=== PATIENT | female | born 1955 | race Caucasian/White ===

== ENCOUNTER → 2017-08-19 10:46 | Outpatient (CLI) | payer OTHER, SELFPAY ==
[2017-08-19 13:22] LABS: Hemoglobin A1c 7.8 % (4.2-6.3)
[2017-08-19 13:25] LABS: ALB/GLOB Ratio 1.2 RATIO (0.9-2.4); AST(SGOT) 24 U/L (15-37); Alanine Aminotransfer ALT/SGPT 35 U/L (13-56); Albumin, Serum 3.8 g/dL (3.2-5.0); Alkaline Phosphatase 65 U/L (45-117); Anion Gap 7 (5-15); BUN 23 mg/dL (7-18); Calcium,Total 9.3 mg/dL (8.5-10.1); Chloride 106 mmol/L (98-107); Creatinine, Serum 0.96 mg/dL (0.55-1.02); EST Glomerular Filtration Rate 63 mL/min (>60); Est Glom Filt Rate - Afr Amer 76 mL/min (>60); Globulin 3.2 g/dL (2.2-4.2); Glucose 108 mg/dL (74-106); Sodium Level 141 mmol/L (136-145)
== END ==
PROVIDERS: Family Provider Family Medicine; PCP Family Medicine; Visit Provider Family Medicine
DX: E11.9 Type 2 diabetes mellitus without complications (principal)
CPT/HCPCS: 36415; 80053; 83036

== ENCOUNTER → 2017-09-05 09:40 | Outpatient (CLI) | payer OTHER, SELFPAY ==
--- NOTE | 2017-09-06 05:55 | LEAS ---
Arterial Study - Arterial Study Arterial Study: Bilateral lower extremity noninvasive arterial exam at rest Patient with cold feet bilateral extremity edema and left greater than right pain Right lower extremity The right PT and DP ankle-brachial indices at rest are 1.04 and 1.08 with a digital index of 0.92. The right posterior tibial and dorsalis pedis waveforms are triphasic. Volume pulse recordings demonstrate normal amplification the calf and the ankle waveforms are well maintained while the digital waveforms are marked mildly depressed Left lower extremity Left PT index cannot be calculated due to and are associated elevated systolic pressure greater than 254. The left DP index is 1.06. Left digital index is 1.01. The left posterior tibial and dorsalis pedis waveforms are triphasic. Volume pulse recordings demonstrate normal amplification the calf and the ankle and digital waveforms are well maintained. Findings are notable for baseline blood pressure of 233/120 Impression: Resting indices and Doppler waveforms are normal bilaterally. Minimally diminished digital waveforms on the right possibly consistent with mild amount of distal small vessel disease. The current findings do not suggest clinically significant large vessel inflow disease. Richy Merchant M.D., F.A.C.S.
== END ==
PROVIDERS: Family Provider Family Medicine; PCP Family Medicine; Visit Provider Family Medicine
DX: E11.9 Type 2 diabetes mellitus without complications (principal); R60.0 Localized edema
CPT/HCPCS: 93923

== ENCOUNTER → 2017-09-26 13:52 | Outpatient (CLI) | payer OTHER, SELFPAY ==
--- NOTE | 2017-09-26 13:53 | ECHOD_ITS ---
Reason For Study: MURMUR Procedure This was a 2D Doppler, Color Flow transthoracic echocardiogram. Exam performed in department. Left Ventricle Normal LV size. Mild concentric left ventricular hypertrophy. Left ventricular systolic function is normal. The estimated ejection fraction is 60 %. Transmitral diastolic flow velocities suggest mild (stage 1) diastolic dysfunction (reversed pattern). No regional wall motion abnormalities noted. Right Ventricle Normal RV size. Normal systolic function. Atria Normal left atrium. Normal right atrium. Mitral Valve Normal mitral valve. Tricuspid Valve Normal tricuspid valve. Mild tricuspid valve insufficiency. Aortic Valve Trisinus/trileaflet aortic valve. Pulmonic Valve Normal pulmonic valve. Great Vessels Normal aortic root. The pulmonary artery is normal size. Normal inferior vena cava. Pericardium/Pleural Small pericardial effusion. There are no echocardiographic indications of cardiac tamponade. MMode/2D Measurements & Calculations LVIDd: 4.8 cm IVSd: 1.3 cm Ao root diam: 2.9 cm LVIDs: 3.7 cm LVPWd: 1.2 cm RVDd: 2.1 cm FS: 24.2 % LAV(MOD-bp): 45.0 ml EDV(MOD-sp4): 88.8 ml SV(MOD-sp4): 47.0 ml LAV(MOD-bp) Indexed: 20.7 ml/m2 ESV(MOD-sp4): 41.7 ml LAV(MOD-sp2): 34.8 ml EF(MOD-sp4): 53.0 % LAV(MOD-sp4): 53.6 ml LA A4 area: 18.8 cm2 RA A4 area: 11.4 cm2 Time Measurements MV dec time: 0.21 sec Doppler Measurements & Calculations MV E max mark: 77.1 cm/sec Lat Peak E' Mark: 6.2 cm/sec Med Peak E' Mark: 5.8 cm/sec MV A max mark: 115.3 cm/sec E/E' lat: 12.3 E/E' med: 13.2 MV E/A: 0.67 Ao V2 max: 155.5 cm/sec LV V1 max: 107.1 cm/sec PA V2 max: 111.3 cm/sec Ao max P.7 mmHg LV V1 max P.6 mmHg Interpretation Summary Normal LV size. Mild concentric left ventricular hypertrophy. The estimated ejection fraction is 60 %. Left ventricular systolic function is normal. Transmitral diastolic flow velocities suggest mild (stage 1) diastolic dysfunction (reversed pattern). Ordering Physician: Ho Landeros Referring Physician: Ho Landeros Performed By: Yanet Gomez RDCS
== END ==
PROVIDERS: Family Provider Family Medicine; PCP Family Medicine; Visit Provider Family Medicine
DX: I34.1 Nonrheumatic mitral (valve) prolapse (principal)
CPT/HCPCS: 93306

== ENCOUNTER → 2017-10-27 11:04 | Outpatient (CLI) | payer OTHER, SELFPAY ==
[2017-10-27 12:28] LABS: Anion Gap 11 (5-15); BUN 42 mg/dL (7-18); BUN/Creat Ratio 25.6 RATIO (10-20); Calcium,Total 9.4 mg/dL (8.5-10.1); Chloride 104 mmol/L (98-107); Creatinine, Serum 1.64 mg/dL (0.55-1.02); EST Glomerular Filtration Rate 34 mL/min (>60); Est Glom Filt Rate - Afr Amer 41 mL/min (>60); Glucose 171 mg/dL (74-106); Potassium 3.8 mmol/L (3.5-5.1); Sodium Level 142 mmol/L (136-145)
== END ==
PROVIDERS: Family Provider Family Medicine; PCP Family Medicine; Visit Provider Nurse Practitioner Family
DX: I10 Essential (primary) hypertension (principal)
CPT/HCPCS: 36415; 80048

== ENCOUNTER 2017-10-29 06:46 | Inpatient (IN) | payer OTHER, SELFPAY ==
[2017-10-29] VITALS (15 sets, daily range): BP systolic 181–260; BP diastolic 80–139; PULSE 75–112; RESP 14–24; TEMP 36.8–37.6; O2SAT 93–98; BMI 40.3; BMI 39.8
--- NOTE | 2017-10-29 07:04 | RAD_ITS ---
STUDY: X-RAY - LUMBAR SPINE REASON FOR EXAM: Female, 62 years old. Back pain since 2 weeks. TECHNIQUE: 3 view(s) of the lumbar spine were obtained. COMPARISON: None FINDINGS: Normal lumbar lordosis. There is a moderate dextroscoliosis of the lumbar spine. There is a 1.3 cm anterolisthesis of L4 on L5 vertebra. There is diffuse demineralization with multi-level endplate thoracolumbar spondylosis. There is multi-level degenerative disc disease with significant disc space narrowing of the visualized lower thoracic/upper lumbar and L4-L5 and L5-S1. There is hypertrophic lower lumbosacral facet arthrosis with neural foraminal stenosis at L4-L5 and L5-S1 levels. There is atherosclerotic calcification of the abdominal aorta without a demonstrated aneurysm. RAD/Lumbar Spine 2 or 3 Views IMPRESSION: 1. Multilevel moderately advanced degenerative changes of the thoracolumbar spine, as detailed above. 2. Degenerative facet arthritis with L4 vertebral grade 1 spondylolisthesis. Electronically Signed: Camille Davis MD at 8:54 EDT Tel , Service support ,
[2017-10-29] MEDS: HYDROmorphone 1 MG/ML Syringe IV ×3 (07:22→10:32)
[2017-10-29] MEDS: Ondansetron 4 MG/2 ML Vial IV (07:22)
--- NOTE | 2017-10-29 08:03 | EKG12_ITS ---
Test Reason : CP Blood Pressure : / mmHG Vent. Rate : 089 BPM Atrial Rate : 089 BPM P-R Int : 176 ms QRS Dur : 094 ms QT Int : 374 ms P-R-T Axes : 039 -20 033 degrees QTc Int : 455 ms Normal sinus rhythm Normal ECG Confirmed by DESTINY PACE MD ([id number]), newspaper photo editor LEONARDO TUCKER ([id number]) on 11/02/2017 3:43:27 PM Referred By: Lars Swenson Confirmed By:DESTINY PACE MD
--- NOTE | 2017-10-29 08:04 | CT_ITS ---
STUDY: CTA CHEST REASON FOR EXAM: Female, 62 years old. Back pain, rule out aortic tissue. RADIATION DOSAGE (If Supplied By Facility): CTDIvol = ( 16.06 ) mGy, DLP = ( 1331.45 ) mGycm TECHNIQUE: The examination was performed with the intravenous administration of 100 ml of Isovue 300 contrast material. Post-processing of the angiographic images was performed, with multiplanar reformation and 3D reconstruction. Individualized dose optimization techniques were used for this CT. COMPARISON: None. FINDINGS: Normal enhancement of the main pulmonary artery and right and left pulmonary arteries. Normal enhancement of the bilateral peripheral pulmonary arteries. There is no demonstrated pulmonary embolism. Normal thoracic aorta and visualized great vessels. There is no demonstrated aortic dissection. There is borderline cardiac cardiomegaly. There is a trace/small pericardial effusion. There is demonstrated small mediastinal and left hilar lymphadenopathy with a 2 cm low-density right paratracheal and multiple smaller lymph nodes. Normal visualized trachea and bronchi. The lungs are under expanded. Posteriorly there is subpleural mild dependent atelectasis. Biapical mild pleural thickening. Lung rob are unremarkable for acute infiltrative or congestive changes. Posteriorly is mild pleural thickening. There is no pleural effusion or pneumothorax. There is non-specific bilateral low-density lymphadenopathy. There are degenerative changes of thoracic spine. Diffuse fatty hepatic infiltration. Subdiaphragmatic small calcified hepatic granuloma. IMPRESSION: 1. Normal CTA chest examination, without a demonstrated pulmonary embolism or arterial dissection. 2. Nonspecific small mediastinal and left hilar lymphadenopathy. Consider follow-up with short-term CT exam in 6 months. 3. Borderline cardiomegaly. Electronically Signed: Camille Davis MD at 9:13 EDT Tel , Service support , STUDY: CTA OF THE ABDOMINAL AORTA REASON FOR EXAM: Female, 62 years old. Back pain, right leg pain, rule out aortic issues. RADIATION DOSAGE (If Supplied By Facility): CTDIvol = ( 16.06 ) mGy, DLP = ( 1331.45 ) mGycm TECHNIQUE: Axial CT angiography multi-detector data acquisition was obtained following intravenous administration of 100 ml of Isovue 300 contrast. Axial images and MIP images were reconstructed from the axial data set. Post-processing of the angiographic images was performed, with multiplanar reformation and 3D reconstruction. Individualized dose optimization techniques were used for this CT. TECHNICAL QUALITY: Good COMPARISON: None. Descriptors of Narrowing: None (0%) Mild (< 50%) Moderate (50-70%) Severe (70-90%) Subtotal/Total Occlusion (90-100%) Non-Evaluable (technically non-diagnostic FINDINGS: Abdominal aorta: No demonstrated narrowing. There is mild atherosclerotic calcification/plaque formation of the infrarenal aorta. Celiac and superior mesenteric arteries: No demonstrated narrowing. Inferior mesenteric artery: No demonstrated narrowing. Right renal artery(arteries): No demonstrated narrowing. Left renal artery(arteries): No demonstrated narrowing. Right common iliac artery: No demonstrated narrowing. Right external iliac artery: No demonstrated narrowing. Right internal iliac artery: No demonstrated narrowing. Left common iliac artery: No demonstrated narrowing. Left external iliac artery: No demonstrated narrowing. Left internal iliac artery: No demonstrated narrowing. There is diffuse fatty hepatic infiltration. A 5 mm subdiaphragmatic calcification of the left hepatic lobe. There is a 2.7 x 2.3 cm left adrenal low-density mass(39 Hounsfield units) demonstrated, probably an adenoma. Bilaterally mildly smaller kidneys. There is significant sigmoid diverticulosis. No evidence of acute diverticulitis. Multiple focal calcifications of the possible degenerated fibroid uterus. Mild anterolisthesis of L4 vertebra. Moderately advanced degenerative disc/endplate disease changes are seen at T11-T12, L4-L5 and L5-S1 levels. Significant nitrogen vacuum gas at L4-L5. CT/CTA Abdomen W/WO Contrast IMPRESSION: 1. No abdominal aortic aneurysm or dissection. Infrarenal mild atherosclerotic calcification. 2. Hepatic steatosis. 3. A 2.7 cm left adrenal mass. Correlation with in phase/out of phase MRI exam is recommended. 4. Sigmoid diverticulosis. 5. Degenerated/calcified fibroid uterus. 6. Moderately advanced degenerative spondylitic changes are seen at T11-T12, L4-L5 and L5-S1. 7. Facet arthritis with grade 1 L4 spondylolisthesis . Electronically Signed: Camille Davis MD at 9:28 EDT Tel , Service support ,
[2017-10-29 08:17] LABS: Absolute Lymphocyte Count 1.52 X10^3/ul (0.83-4.51); Absolute Neutrophil Count 3.3 X10^3/uL (2.0-7.7); Basophil# 0.02 X10^3/uL; Basophil% 0.4 % (0-1); Eosinophil# 0.06 X10^3/uL; Eosinophils% 1.1 % (0-5); Hematocrit 43.4 % (37-47); Lymphocyte # 1.52 X10^3/ul (4.0); Lymphocyte % 28.7 % (19-41); Mean Corp Hgb Conc 32.3 g/gl (32-36); Mean Corpuscular Hgb 29.5 pg (27.0-32.0); Mean Corpuscular Volume 91.4 fL (81-99); Monocyte# 0.41 X10^3/uL; Monocyte% 7.7 % (0-10); Neutrophil # 3.28 X10^3/uL (2.7-7.7); Neutrophil % 61.9 % (47-70); Platelet Count 217 K/mm3 (150-450); RBC Distribution Width CV 13.3 % (11.6-14.6); RBC Distribution Width SD 44.3 fl (35.1-43.9); Red Blood Count 4.75 M/mm3 (4.2-5.4); White Blood Count 5.3 K/mm3 (4.4-11.0)
[2017-10-29 08:18] LABS: POSITIVE COUNT NO; POSITIVE DIFFERENTIAL NO; POSITIVE MORPHOLOGY NO
[2017-10-29 08:33] LABS: Anion Gap 7 (5-15); BUN 23 mg/dL (7-18); BUN/Creat Ratio 22.5 RATIO (10-20); Calcium,Total 9.6 mg/dL (8.5-10.1); Chloride 106 mmol/L (98-107); Creatinine, Serum 1.02 mg/dL (0.55-1.02); EST Glomerular Filtration Rate 58 mL/min (>60); Est Glom Filt Rate - Afr Amer 71 mL/min (>60); Estimated Creatinine Clearance 51.46 ml/min; Glucose 252 mg/dL (74-106); Potassium 3.9 mmol/L (3.5-5.1); Sodium Level 140 mmol/L (136-145)
[2017-10-29] MEDS: Labetalol 100 MG/20 ML Vial 10 MG IV (08:59)
--- NOTE | 2017-10-29 09:02 | ED.RN ---
AFTER RECEIVING DILAUDID, PT PULSE OX DOWN TO 88%. PT PLACED ON 2L O2 VIA NC
--- NOTE | 2017-10-29 10:21 | ED.VISSUMM ---
- ER Visit Summary Date of Service: 10/29/17 Chief Complaint: Right leg and back pain History of Present Illness: The patient is a 62 F with right leg and back pain. Symptoms have been increasing gradually over the past 2 weeks. Pain was severe today and she could not sleep, sit comfortably, or walk. Worse with weightbearing. He does report some swelling to her legs and she has some subjective numbness distal to her right knee. She denies any injury or inciting event. Denies any history of this in the past. She has a history of hypertension, hyperlipidemia, diabetes. She denies any history of abdominal or back surgeries, aortic disease, or problems with her spine or right leg. She is a former smoker. Physical Examination: Blood pressure 260/103 and heart rate 110. Otherwise vitals unremarkable. Afebrile. Patient is lying supine and appears very uncomfortable. Heart is tachycardic. Lungs are clear. Abdomen soft, nontender, nondistended, normal bowel sounds, no masses. Back shows diffuse tenderness over the lumbar spine. She also has diffuse tenderness to her right lower extremity. Skin appears normal with trace symmetric edema. Good DP pulses, symmetric. Good range of motion. Strength and sensation grossly intact. Test Results: Lumbar x-rays showed degenerative changes and grade 1 spondylolisthesis at L4. Emergency Department Course and Treatment: Patient treated with Dilaudid and Zofran while awaiting results. X-rays show degenerative changes. Patient had continued pain. Nurse noted tachycardia. Blood pressure remained elevated in the range of about 250 systolic. I was concerned given her worsening symptoms and her elevated blood pressure. She received a dose pain medication as well as labetalol. Laboratory studies and imaging performed. Her labs were largely unremarkable. Her CT showed a normal aorta. She has mediastinal and left hilar lymph nodes and radiology recommends follow-up in 6 months. She has cardiomegaly and a 2.7 cm left adrenal mass, follow-up imaging recommended. Patient had continued pain. No change in exam. She was unable to ambulate. Hospitalist was contacted for admission. Treatment Plan: As above Disposition: Admission Impression: 1. Intractable back pain 2. Hypertension 3. Mediastinal and hilar lymphadenopathy 4. Left adrenal mass This note was generated with [employer] dictation software. It may contain incorrect words, spelling, and punctuation that were not noted in review of the chart prior to signing ED Disposition - Plan for ED Patient: Chief Complaint: Other, Pain/Inj Referrals: Ho Landeros DO [Primary Care Provider] -
--- NOTE | 2017-10-29 10:22 | PCM.HP.STD ---
Problem List (1) Acute back pain Status: Acute Qualifiers: Back pain location: low back pain Back pain laterality: bilateral Sciatica presence: with sciatica Sciatica laterality: sciatica of right side Qualified Code(s): M54.41 - Lumbago with sciatica, right side (2) Hypertensive urgency Status: Acute (3) Chronic pain Status: Chronic Qualifiers: Chronic pain type: other chronic pain Qualified Code(s): G89.29 - Other chronic pain (4) Hyperlipemia Status: Chronic Qualifiers: Hyperlipidemia type: unspecified Qualified Code(s): E78.5 - Hyperlipidemia, unspecified (5) Hypertension Status: Chronic Qualifiers: Hypertension type: essential hypertension Qualified Code(s): I10 - Essential (primary) hypertension (6) Type 2 diabetes mellitus Status: Chronic Qualifiers: Diabetes mellitus jail insulin use: with intermediate school teacher use Diabetes mellitus complication status: with unspecified complications Qualified Code(s): E11.8 - Type 2 diabetes mellitus with unspecified complications; Z79.4 - residential (current) use of insulin History of Present Illness Date of Admission: 10/29/17 Chief Complaint: Acute back pain, going for months, worsening over the last few weeks The patient is a 62 year old F with past medical history of chronic back pain ongoing for months, hypertension, obesity comes in with complaints of acute pain which is been getting worse for the last few weeks as well as right leg numbness. Patient states she has had chronic back pain but lately has been having right lower extremity swelling and numbness as well as pain that shoots from the back down her legs. She has followed up in the outpatient with her primary care doctors but pain has been progressively worse. She has incontinence of urine but not stool. Denies any fever or chills or headaches or dizziness. In the ED was significant for temperature 98.2 F, heart rate of 110, blood pressure 260/103, respiratory of 20, SPO2 of 97% on room air. Received multiple doses of Dilaudid, IV labetalol in the ED. X-ray of the lumbar spine shows multilevel moderately advanced degenerative changes of the thoracolumbar spine, degenerative facet fracture with L4 vertebra grade [address] of the chest and abdomen showed no pulmonary embolism or arterial dissection. Past Medical History Past Medical History (Chronic Problems): Chronic Problems (Last Reviewed 04/19/18 @ 13:56 by Ho Landeros DO) Arthritis (Chronic) Mitral valve prolapse (Chronic) Neuropathy (Chronic) Chronic pain (Chronic) Hyperlipemia (Chronic) Hypertension (Chronic) Type 2 diabetes mellitus (Chronic) Medical History: Medical History (Last Reviewed 09/01/17 @ 13:56 by Ho Landeros DO) Arthritis (Chronic) M19.90 Mitral valve prolapse (Chronic) I34.1 Neuropathy (Chronic) G62.9 Chronic pain (Chronic) G89.29 Hyperlipemia (Chronic) E78.5 Hypertension (Chronic) I10 Type 2 diabetes mellitus (Chronic) E11.9 Allergies No Known Allergies Allergy (Unverified 10/29/17 06:47) Home Medications: Ambulatory Orders Medication Instructions Recorded ascorbic acid (vitamin C) 500 mg 500 mg PO QDAY 08/18/17 tablet aspirin 81 mg chewable tablet 1 tab PO DAILY 08/18/17 calcium carbonate 600 mg calcium 600 mg PO BID tab 08/18/17 (1,500 mg) tablet cholecalciferol (vitamin D3) 2,000 2,000 unit PO QDAY 08/18/17 unit capsule hydrochlorothiazide 25 mg tablet 25 mg PO QAM #90 tab 08/18/17 insulin glargine (U-100) 100 60 unit SC QHS ml 08/18/17 unit/mL (3 mL) subcutaneous pen insulin glulisine (U-100) 100 10 unit SC TID ml 08/18/17 unit/mL subcutaneous pen labetalol 100 mg tablet 100 mg PO BID 08/18/17 lisinopril 40 mg tablet 40 mg PO QDAY 08/18/17 multivitamin tablet 1 tab PO QAM 08/18/17 simvastatin 40 mg tablet 40 mg PO QHS 08/18/17 vitamin B12 500 mcg-folic acid 400 1 tab PO QDAY 08/18/17 mcg tablet Surgical History: Surgical History (Last Reviewed 09/01/17 @ 13:56 by Ho Landeros DO) H/O right heart catheterization Z98.890 Surgical History: no surgical history Psychiatric History: No pertinent psych hx 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 Denies: Anorexia, Chills, Fever, Weight Change Eyes: Denies: Blurred vision, Cataracts, Conjunctivae Inflammation HEENT: Denies: Difficulty Hearing, Difficulty Swallowing, Head Aches, Hearing Changes, Sinus Congestion, Sinus Drainage Cardiovascular: Denies: Chest Pain, Claudication, Orthopnea, Palpitations, Paroxysmal Noc. Dyspnea Respiratory: Denies: Cough, Hemoptysis, Pleuritic Pain, Shortness of breath at rest, Shortness of breath upon exertion, Sputum production Gastrointestinal: Denies: Abdominal Pain, Constipation, Hematemesis, Hematochezia, Nausea, Vomiting Genitourinary: Denies: Dysuria, Frequency, Hematuria Musculoskeletal: Reports: Back Pain, Leg Pain. Denies: Joint Pain, Joint swelling, Joint Tenderness Skin: Denies: Rash, Wounds Neurological: Denies: Balance problems, Change in Speech, Slurred speech, Difficulty swallowing, Focal weakness, Numbness, Tingling Psychiatric: Denies: Anxiety, Depression, Homicidal Ideations, Suicidal Ideations Hematologic/ Lymphatic: Denies: Easy Bruising, Easy Bleeding VTE Information - Inpt Only VTE Present on Admission: No VTE Pharm Prophylaxis ordered?: Yes Patient Problems: Active and Suspected Problems (Last Reviewed 09/01/17 @ 13:56 by Ho Landeros DO) Acute back pain (Acute) Hypertensive urgency (Acute) - Physical Exam General: Alert, Oriented x3, Cooperative, No apparent distress HEENT: Atraumatic, PERRLA, EOMI, Normocephalic Oral: Moist Mucosa Neck: Supple Lungs: Clear to auscultation, Normal air movement Cardiovascular: Regular rate, Regular Rhythm, Normal S1, Normal S2, No murmurs Abdomen: Bowel Sounds Present, Soft, Non Tender, Non-Distended, No Hepato-splenomegaly Extremities: No edema Skin: No rashes, No breakdown Musculoskeletal: No Tenderness to Palpation of Joints or Extremities Lymphatic: No Cervical, Supraclavicular, or Inguinal Adenopathy Neurological: Cranial nerves II-XII grossly intact Psych/Mental Status: Normal Affect, Appropriate Vital Signs Temp Pulse Resp BP Pulse Ox 98.2 F 86 24 H 223/139 H 95 06/16/18 06:47 10/29/17 10:08 10/29/17 10:08 10/29/17 10:08 10/29/17 10:08 Oxygen Flow Rate (L/min) 2 Oxygen Delivery Method Room Air Weight: 109.9 kg Body Mass Index (BMI) 40.3 Laboratory Tests Past 24 Hrs 10/29/17 10/29/17 08:07 08:07 WBC 5.3 RBC 4.75 Hgb 14.0 Hct 43.4 MCV 91.4 MCH 29.5 MCHC 32.3 RDW 13.3 RDW Differential 44.3 H Plt Count 217 MPV 9.0 Immature Gran % (Auto) 0.200 Neut % (Auto) 61.9 Lymph % (Auto) 28.7 Greer % (Auto) 7.7 Eos % (Auto) 1.1 Baso % (Auto) 0.4 Absolute Neuts (auto) 3.3 Absolute Lymphs (auto) 1.52 Total Counted Not Reportable Sodium 140 Potassium 3.9 Chloride 106 Carbon Dioxide 27.0 Anion Gap 7 BUN 23 H Creatinine 1.02 Estim Creat Clear Calc 51.46 Est GFR (MDRD) Af Amer 71 Est GFR (MDRD) Non-Af 58 L BUN/Creatinine Ratio 22.5 H Glucose 252 H Calcium 9.6 Troponin I < 0.015 Assessment/Plan All Active Problems (Last Reviewed 09/01/17 @ 13:56 by Ho Landeros DO) Acute back pain (Acute) Hypertensive urgency (Acute) 62 year old F with past medical history of chronic back pain ongoing for months, hypertension, obesity comes in with complaints of acute pain which is been getting worse for the last few weeks as well as right leg numbness. 1. Acute on chronic back pain secondary to degenerative disc is disease, MRI of the lumbar spine shows L4-L5 spondylolisthesis with disc bulge encroaching the left intervertebral foramen, patient has numbness in the right lower extremity, Plan: Admit to PCU, IV pain medicines, PT and OT to evaluate and treat, pain management consult -Dr. Naylor; cast with him, would consider for epidural injection on Tuesday morning, will gets lateral x-rays of the lumbar spine flexion and extension 2. Hypertensive urgency, complicated by uncontrolled pain, will continue patient's home blood pressure medications as well as as needed hydralazine, will continue to monitor vitals closely 3. Hyperlipidemia, on statins 4. Type II DM, on insulin, sugars are uncontrolled, will cover with Accu-Cheks and insulin sliding scale 5. DVT prophylaxis with Lovenox subcu Code Visit Inpatient E&M: 86488 Init Hosp L3
--- NOTE | 2017-10-29 10:31 | ED.DCSUM_ITS ---
- ER Visit Summary Date of Service: 10/29/17 Chief Complaint: Right leg and back pain History of Present Illness: The patient is a 62 F with right leg and back pain. Symptoms have been increasing gradually over the past 2 weeks. Pain was severe today and she could not sleep, sit comfortably, or walk. Worse with weightbearing. He does report some swelling to her legs and she has some subjective numbness distal to her right knee. She denies any injury or inciting event. Denies any history of this in the past. She has a history of hypertension, hyperlipidemia, diabetes. She denies any history of abdominal or back surgeries, aortic disease, or problems with her spine or right leg. She is a former smoker. Physical Examination: Blood pressure 260/103 and heart rate 110. Otherwise vitals unremarkable. Afebrile. Patient is lying supine and appears very uncomfortable. Heart is tachycardic. Lungs are clear. Abdomen soft, nontender , nondistended, normal bowel sounds, no masses. Back shows diffuse tenderness over the lumbar spine. She also has diffuse tenderness to her right lower extremity. Skin appears normal with trace symmetric edema. Good DP pulses, symmetric. Good range of motion. Strength and sensation grossly intact. Test Results: Lumbar x-rays showed degenerative changes and grade 1 spondylolisthesis at L4. Emergency Department Course and Treatment: Patient treated with Dilaudid and Zofran while awaiting results. X-rays show degenerative changes. Patient had continued pain. Nurse noted tachycardia. Blood pressure remained elevated in the range of about 250 systolic. I was concerned given her worsening symptoms and her elevated blood pressure. She received a dose pain medication as well as labetalol. Laboratory studies and imaging performed. Her labs were largely unremarkable. Her CT showed a normal aorta. She has mediastinal and left hilar lymph nodes and radiology recommends follow-up in 6 months. She has cardiomegaly and a 2.7 cm left adrenal mass, follow-up imaging recommended. Patient had continued pain. No change in exam. She was unable to ambulate. Hospitalist was contacted for admission. Treatment Plan: As above Disposition: Admission Impression: 1. Intractable back pain 2. Hypertension 3. Mediastinal and hilar lymphadenopathy 4. Left adrenal mass This note was generated with [employer] dictation software. It may contain incorrect words, spelling, and punctuation that were not noted in review of the chart prior to signing ED Disposition - Plan for ED Patient: Chief Complaint: Other, Pain/Inj Referrals: Ho Landeros DO [Primary Care Provider] -
--- NOTE | 2017-10-29 10:43 | MRI_ITS ---
STUDY: MRI LUMBAR SPINE WITHOUT CONTRAST REASON FOR EXAM: Female, 62 years old. Right leg pain TECHNIQUE: Standardized fat and water weighted pulse sequences were obtained in the sagittal and axial planes. COMPARISON: None FINDINGS: There is a mild scoliosis with convexity to the right. There is also a 7.4 mm spondylolisthesis of L4 over L5 and narrowing of the L4-5 and L5-S1 disc spaces. There are no abnormal marrow infiltrative processes. T12-L1: Normal endplates. Normal disc height, hydration and morphology. Normal bilateral facet joints. Normal central canal and bilateral lateral recesses. Normal bilateral intervertebral neural foramina. Normal lumbar lordosis. There is no substantial scoliosis. Normal conus medullaris that terminates at the L1-2: Normal endplates. Normal disc height, hydration and morphology. Normal bilateral facet joints. Normal central canal and bilateral lateral recesses. Normal bilateral intervertebral neural foramina. L2-3: Normal endplates. Normal disc height, hydration and morphology. Normal bilateral facet joints. Normal central canal and bilateral lateral recesses. Normal bilateral intervertebral neural foramina. L3-4: Normal endplates. Normal disc height, hydration and morphology. Normal bilateral facet joints. Normal central canal and bilateral lateral recesses. Normal bilateral intervertebral neural foramina. L4-5: There is asymmetric disc bulging with a bulging disc encroaching on the left intervertebral foramen and compressing on the left L4 nerve root. There is also a 1.4 x 0.8 cm disc extrusion at the L4-5 level with a craniocaudad extension of 7.7 mm. L5-S1: Disc space narrowing with small spurs from the vertebral body and. No focal disc protrusion or extrusion. The aorta and kidneys are normal.. MRI/Spine Lumbar (Routine) IMPRESSION: A mild scoliosis with convexity to the right. A 7.4 mm spondylolisthesis L4-L5. There is no spondylolysis. Asymmetric disc bulging at L4-5 due to bulging disc encroaches into the left intervertebral foramen. There is also a disc extrusion which is right paracentral in location and measuring 1.3 x 0.7 cm. There is a 7.7 mm proximal/craniad right parapedicular extension of the extruded disc. Electronically Signed: Yury Hernandez, at 12:58 EDT Tel , Service support ,
[2017-10-29 12:51] LABS: Bedside Glucose 231 mg/dL (70-110)
[2017-10-29] MEDS: Morphine 4 MG/ML Syringe IV (13:07)
[2017-10-29] MEDS: Insulin Lispro 100 UNIT/ML INSULN.PEN SQ ×3 (13:07→22:17)
[2017-10-29] MEDS: Lisinopril 40 MG Tablet PO (13:52)
[2017-10-29] MEDS: hydroCHLOROthiazide 25 MG Tablet PO (13:52)
[2017-10-29] MEDS: oxyCODONE 5 MG Tablet PO ×2 (15:51→22:15)
[2017-10-29] MEDS: Gabapentin 100 MG Capsule PO (17:08)
[2017-10-29] MEDS: Calcium Carb/Vitamin D 1 TABLET Tablet PO (17:08)
[2017-10-29 17:16] LABS: Bedside Glucose 248 mg/dL (70-110)
[2017-10-29] MEDS: Insulin Lispro 100 UNIT/ML INSULN.PEN 10 UNIT SC (17:59)
[2017-10-29] MEDS: Atorvastatin Calcium 20 MG Tablet PO (22:15)
[2017-10-29] MEDS: Senna/Docusate Sodium 1 Tablet 2 TABLET PO (22:16)
[2017-10-29] MEDS: Famotidine 20 MG Tablet PO (22:16)
[2017-10-29] MEDS: Labetalol 100 MG Tablet PO (22:17)
[2017-10-29 22:31] LABS: Bedside Glucose 243 mg/dL (70-110)
[2017-10-29] MEDS: Acetaminophen 325 MG Tablet 650 MG PO (23:14)
[2017-10-30] VITALS (11 sets, daily range): BP systolic 146–184; BP diastolic 72–91; PULSE 86–103; RESP 16–18; TEMP 36.6–37.4; O2SAT 93–98
[2017-10-30] MEDS: oxyCODONE 5 MG Tablet PO ×3 (04:29→17:40)
[2017-10-30 06:34] LABS: Absolute Lymphocyte Count 1.57 X10^3/ul (0.83-4.51); Absolute Neutrophil Count 3.8 X10^3/uL (2.0-7.7); Basophil# 0.02 X10^3/uL; Basophil% 0.3 % (0-1); Eosinophil# 0.04 X10^3/uL; Eosinophils% 0.7 % (0-5); Hematocrit 41.9 % (37-47); Lymphocyte # 1.57 X10^3/ul (4.0); Lymphocyte % 25.7 % (19-41); Mean Corpuscular Volume 93.3 fL (81-99); Mean Platelet Vol. 9.1 fl (6.2-12.0); Monocyte# 0.64 X10^3/uL; Monocyte% 10.5 % (0-10); Neutrophil # 3.84 X10^3/uL (2.7-7.7); Neutrophil % 62.8 % (47-70); Platelet Count 209 K/mm3 (150-450); RBC Distribution Width CV 13.7 % (11.6-14.6); RBC Distribution Width SD 46.5 fl (35.1-43.9); Red Blood Count 4.49 M/mm3 (4.2-5.4); White Blood Count 6.1 K/mm3 (4.4-11.0)
[2017-10-30 06:47] LABS: Anion Gap 6 (5-15); BUN 18 mg/dL (7-18); BUN/Creat Ratio 18.3 RATIO (10-20); Calcium,Total 9.1 mg/dL (8.5-10.1); Chloride 107 mmol/L (98-107); Creatinine, Serum 0.98 mg/dL (0.55-1.02); EST Glomerular Filtration Rate 61 mL/min (>60); Est Glom Filt Rate - Afr Amer 74 mL/min (>60); Estimated Creatinine Clearance 53.56 ml/min; Glucose 186 mg/dL (74-106); Potassium 3.9 mmol/L (3.5-5.1); Sodium Level 142 mmol/L (136-145)
[2017-10-30 06:50] LABS: Bedside Glucose 197 mg/dL (70-110)
[2017-10-30 07:03] LABS: POSITIVE COUNT NO; POSITIVE DIFFERENTIAL NO; POSITIVE MORPHOLOGY NO
[2017-10-30] MEDS: Insulin Lispro 100 UNIT/ML INSULN.PEN SQ ×4 (08:41→21:13)
[2017-10-30] MEDS: Insulin Lispro 100 UNIT/ML INSULN.PEN 10 UNIT SC ×3 (08:41→17:36)
[2017-10-30] MEDS: Calcium Carb/Vitamin D 1 TABLET Tablet PO ×2 (08:42→17:37)
[2017-10-30] MEDS: Multivitamins,Therapeutic Tablet 1 TABLET PO (08:43)
[2017-10-30] MEDS: Aspirin 81 MG TAB.CHEW PO (08:43)
[2017-10-30] MEDS: Gabapentin 100 MG Capsule PO ×3 (08:43→17:37)
[2017-10-30] MEDS: Senna/Docusate Sodium 1 Tablet 2 TABLET PO ×2 (09:33→21:14)
[2017-10-30] MEDS: Labetalol 100 MG Tablet PO ×2 (09:33→21:14)
[2017-10-30] MEDS: Famotidine 20 MG Tablet PO ×2 (09:33→21:14)
[2017-10-30] MEDS: Ascorbic Acid 500 MG Tablet PO (09:33)
[2017-10-30] MEDS: hydroCHLOROthiazide 25 MG Tablet PO (09:33)
[2017-10-30] MEDS: Lisinopril 40 MG Tablet PO (09:33)
[2017-10-30] MEDS: Enoxaparin 40 MG/0.4 ML Syringe SC (09:33)
[2017-10-30] MEDS: Cyanocobalamin 500 MCG Tablet PO (09:33)
[2017-10-30 12:26] LABS: Bedside Glucose 193 mg/dL (70-110)
[2017-10-30] MEDS: Morphine 4 MG/ML Syringe IV (12:27)
[2017-10-30] MEDS: amLODIPine 5 MG Tablet PO (13:02)
--- NOTE | 2017-10-30 15:53 | PCM.PN.HOSP ---
Patient Problems: Active and Suspected Problems (Last Reviewed 09/01/17 @ 13:56 by Ho Landeros DO) Acute back pain (Acute) Hypertensive urgency (Acute) Subjective: She was seen and examined. Pain is still uncontrolled, 12/23. Able to ambulate. Has been working with therapy. Constipated. Denies any fever or chills. Objective: Physical Exam General: Alert, Oriented x3, Cooperative, in moderate pain HEENT: Atraumatic, PERRLA, EOMI, Normocephalic Oral: Moist Mucosa Neck: Supple Lungs: Clear to auscultation, Normal air movement Cardiovascular: Regular rate, Regular Rhythm, Normal S1, Normal S2, No murmurs Abdomen: Bowel Sounds Present, Soft, Non Tender, Non-Distended, No Hepato-splenomegaly Extremities: No edema Skin: No rashes, No breakdown Musculoskeletal: Tenderness over the lumbosacral spine, straight leg test is positive. Lymphatic: No Cervical, Supraclavicular, or Inguinal Adenopathy Neurological: Cranial nerves II-XII grossly intact Psych/Mental Status: Normal Affect, Appropriate Vitals/I&O's: Vital Signs Temp Pulse Resp BP Pulse Ox 98.6 F 89 16 161/72 H 97 10/30/17 15:11 10/30/17 15:14 10/30/17 15:11 10/30/17 15:11 10/30/17 15:11 Oxygen Delivery Method Room Air Weight: 108.6 kg Body Mass Index (BMI) 39.8 Intake and Output for Last 24 Hours 10/28/17 10/29/17 10/30/17 23:59 23:59 23:59 Intake Total 200 / 200 480 / 480 Output Total 300 / 300 Balance 200 / 200 180 / 180 Laboratory Results 10/29/17 17:01: POC Glucose 248 H 10/29/17 22:03: POC Glucose 243 H 10/30/17 05:32: WBC 6.1, RBC 4.49, Hgb 13.0, Hct 41.9, MCV 93.3, MCH 29.0, MCHC 31.0 L, RDW 13.7, RDW Differential 46.5 H, Plt Count 209, MPV 9.1, Immature Gran % (Auto) 0.000, Neut % (Auto) 62.8, Lymph % (Auto) 25.7, [place] % (Auto) 10.5 H, Eos % (Auto) 0.7, Baso % (Auto) 0.3, Absolute Neuts (auto) 3.8, Absolute Lymphs (auto) 1.57, Total Counted Not Reportable 10/30/17 05:32: Sodium 142, Potassium 3.9, Chloride 107, Carbon Dioxide 29.0, Anion Gap 6, BUN 18, Creatinine 0.98, Estim Creat Clear Calc 53.56, Est GFR (MDRD) Af Amer 74, Est GFR (MDRD) Non-Af 61, BUN/Creatinine Ratio 18.3, Glucose 186 H, Calcium 9.1 10/30/17 06:47: POC Glucose 197 H 10/30/17 12:08: POC Glucose 193 H Current Medications Acetaminophen (Tylenol) 650 mg PO Q6H PRN PRN PRN Reason: Mild Pain (1-3)/Temp > 100.7 F Last Admin: 10/29/17 23:14 Dose: 650 mg Amlodipine Besylate (Norvasc) 5 mg PO DAILY [facility] Last Admin: 10/30/17 13:02 Dose: 5 mg Ascorbic Acid (Vitamin C) 500 mg PO DAILY [facility] Last Admin: 10/30/17 09:33 Dose: 500 mg [facility]ir[facility] ([facility], Baby) [facility] Last Admin: 10/30/17 08:43 Dose: 81 mg Atorvastatin Calcium (Lipitor) 20 mg PO QHS [facility] Last Admin: 10/29/17 22:15 Dose: 20 mg Bisacodyl (Dulcolax) 5 mg PO DAILY PRN PRN PRN Reason: Constipation Calcium/Vitamin D (Os-Yogesh 500mg + D) [facility] Last Admin: 10/30/17 08:42 Dose: 1 tablet Cholecalciferol (Vitamin D) 2,000 unit PO DAILY [facility] Last Admin: 10/30/17 09:33 Dose: 2,000 unit Cyanocobalamin (Vitamin B12) 500 mcg PO DAILY [facility] Last Admin: 10/30/17 09:33 Dose: 500 mcg Dextrose (D50w Syringe) 0 gm IV X1 PRN; Protocol PRN Reason: Hypoglycemia Enoxaparin Sodium (Lovenox) 40 mg SC DAILY@1000 [facility] Last Admin: 10/30/17 09:33 Dose: 40 mg Famotidine (Pepcid) 20 mg PO BID [facility] Last Admin: 10/30/17 09:33 Dose: 20 mg Gabapentin (Neurontin) 100 mg PO TIDCM [facility] Last Admin: 10/30/17 12:08 Dose: 100 mg Glucagon () 1 mg IM .X1 PRN PRN Reason: Hypoglycemia Hydrochlorothiazide (Hctz) 25 mg PO QAM [facility] Last Admin: 10/30/17 09:33 Dose: 25 mg Insulin Glargine (Lantus (Bkc)) 60 units SC QHS [facility] Last Admin: 10/29/17 22:18 Dose: 60 u Insulin Human Lispro (Humalog Kwikpen (Bkc)) 0 unit SQ ACHS [facility] PRN Reason: Protocol Last Admin: 10/30/17 12:09 Dose: 1 units Insulin Human Lispro (Humalog Kwikpen (Bkc)) 10 unit SC 0800,1200,1700 [facility] Last Admin: 10/30/17 12:09 Dose: 11 units Labetalol HCl (Trandate) 100 mg PO BID [facility] Last Admin: 10/30/17 09:33 Dose: 100 mg Labetalol HCl (Trandate) 10 mg IV Q6H PRN PRN PRN Reason: BLOOD PRESSURE Last Admin: 10/29/17 23:28 Dose: 10 mg Lisinopril (Zestril) 40 mg PO DAILY [facility] Last Admin: 10/30/17 09:33 Dose: 40 mg Magnesium Hydroxide (Milk Of Magnesia) 30 ml PO DAILY PRN PRN PRN Reason: Constipation Morphine Sulfate () 2 - 4 mg IV Q4H PRN PRN PRN Reason: MOD-SEVERE PAIN (4-10/10) Morphine Sulfate () 2 - 4 mg IV Q4H PRN PRN PRN Reason: MOD-SEVERE PAIN (4-10/10) Last Admin: 10/30/17 12:27 Dose: 4 mg Multivitamins (Multivitamin) 1 tablet PO DAILY@0800 [facility] Last Admin: 10/30/17 08:43 Dose: 1 tablet Oxycodone HCl (Oxyir) 5 - 10 mg PO Q4H PRN PRN PRN Reason: MOD-SEVERE PAIN (4-10/10) Last Admin: 10/30/17 08:36 Dose: 10 mg Psyllium Hydrophilic Mucilloid (Metamucil) 1 packet PO DAILY PRN PRN PRN Reason: CONSTIPATION Senna/Docusate Sodium (Senokot-S, Gail-Colace) 2 tablet PO BID [facility] Last Admin: 10/30/17 09:33 Dose: 2 tablet Medical Necessity - Tobacco Use Smoking Status: Former smoker Tobacco Use: Non-smoker Assessment/Plan All Active Problems (Last Reviewed 09/01/17 @ 13:56 by Ho Landeros, DO) Acute back pain (Acute) Hypertensive urgency (Acute) 62 year old F with past medical history of chronic back pain ongoing for months, hypertension, obesity comes in with complaints of acute pain which is been getting worse for the last few weeks as well as right leg numbness. 1. Acute on chronic back pain secondary to degenerative disc, MRI of the lumbar spine shows L4-L5 spondylolisthesis with disc bulge encroaching the left intervertebral foramen. Patient has numbness in the right lower extremity. Pain is still uncontrolled on oxycodone and morphine IV. Plan: Continue with current pain management regimen, discussed with Dr. Naylor, he plans on doing a possible epidural injection tomorrow, would see patient to evaluate. Patient will need referral for neurosurgery evaluation ultimately. 2. Hypertensive urgency, complicated by uncontrolled pain, blood pressure is fairly controlled, would add amlodipine, continue other home regimen. 3. Hyperlipidemia, on statins. 4. Type II DM, on Lantus insulin, blood sugars are slightly better controlled, will continue with home insulin regimen as well as Accu-Cheks with insulin sliding scale 5. DVT prophylaxis with Lovenox subcu 6. Disposition: Depending on outcomes after possible epidural injection by Dr. Naylor, patient to be discharged home with home health and neurosurgery follow-up. Code Visit Inpatient E&M: 22795 Subs Hosp L3
--- NOTE | 2017-10-30 16:00 | PN_ITS ---
Patient Problems: Active and Suspected Problems (Last Reviewed 09/01/17 @ 13:56 by Ho Landeros DO) Acute back pain (Acute) Hypertensive urgency (Acute) Subjective: She was seen and examined. Pain is still uncontrolled, 12/23. Able to ambulate. Has been working with therapy. Constipated. Denies any fever or chills. Objective: Physical Exam General: Alert, Oriented x3, Cooperative, in moderate pain HEENT: Atraumatic, PERRLA, EOMI, Normocephalic Oral: Moist Mucosa Neck: Supple Lungs: Clear to auscultation, Normal air movement Cardiovascular: Regular rate, Regular Rhythm, Normal S1, Normal S2, No murmurs Abdomen: Bowel Sounds Present, Soft, Non Tender, Non-Distended, No Hepato- splenomegaly Extremities: No edema Skin: No rashes, No breakdown Musculoskeletal: Tenderness over the lumbosacral spine, straight leg test is positive. Lymphatic: No Cervical, Supraclavicular, or Inguinal Adenopathy Neurological: Cranial nerves II-XII grossly intact Psych/Mental Status: Normal Affect, Appropriate Vitals/I&O's: Vital Signs Temp Pulse Resp BP Pulse Ox 98.6 F 89 16 161/72 H 97 10/30/17 15:11 10/30/17 15:14 10/30/17 15:11 10/30/17 15:11 10/30/17 15:11 Oxygen Delivery Method Room Air Weight: 108.6 kg Body Mass Index (BMI) 39.8 Intake and Output for Last 24 Hours 10/28/17 10/29/17 10/30/17 23:59 23:59 23:59 Intake Total 200 / 200 480 / 480 Output Total 300 / 300 Balance 200 / 200 180 / 180 Laboratory Results 10/29/17 17:01: POC Glucose 248 H 10/29/17 22:03: POC Glucose 243 H 10/30/17 05:32: WBC 6.1, RBC 4.49, Hgb 13.0, Hct 41.9, MCV 93.3, MCH 29.0, MCHC 31.0 L, RDW 13.7, RDW Differential 46.5 H, Plt Count 209, MPV 9.1, Immature Gran % (Auto) 0.000, Neut % (Auto) 62.8, Lymph % (Auto) 25.7, [place] % (Auto) 10.5 H, Eos % (Auto) 0.7, Baso % (Auto) 0.3, Absolute Neuts (auto) 3.8, Absolute Lymphs (auto) 1.57, Total Counted Not Reportable 10/30/17 05:32: Sodium 142, Potassium 3.9, Chloride 107, Carbon Dioxide 29.0, Anion Gap 6, BUN 18, Creatinine 0.98, Estim Creat Clear Calc 53.56, Est GFR ( MDRD) Af Amer 74, Est GFR (MDRD) Non-Af 61, BUN/Creatinine Ratio 18.3, Glucose 186 H, Calcium 9.1 10/30/17 06:47: POC Glucose 197 H 10/30/17 12:08: POC Glucose 193 H Current Medications Acetaminophen (Tylenol) 650 mg PO Q6H PRN PRN PRN Reason: Mild Pain (1-3)/Temp > 100.7 F Last Admin: 10/29/17 23:14 Dose: 650 mg Amlodipine Besylate (Norvasc) 5 mg PO DAILY [facility] Last Admin: 10/30/17 13:02 Dose: 5 mg Ascorbic Acid (Vitamin C) 500 mg PO DAILY [facility] Last Admin: 10/30/17 09:33 Dose: 500 mg [facility] ([facility], [facility]) [facility] Last Admin: 10/30/17 08:43 Dose: 81 mg Atorvastatin Calcium (Lipitor) 20 mg PO QHS [facility] Last Admin: 10/29/17 22:15 Dose: 20 mg Bisacodyl (Dulcolax) 5 mg PO DAILY PRN PRN PRN Reason: Constipation Calcium/Vitamin D (Os-Yogesh 500mg + D) [facility] Last Admin: 10/30/17 08:42 Dose: 1 tablet Cholecalciferol (Vitamin D) 2,000 unit PO DAILY [facility] Last Admin: 10/30/17 09:33 Dose: 2,000 unit Cyanocobalamin (Vitamin B12) 500 mcg PO DAILY [facility] Last Admin: 10/30/17 09:33 Dose: 500 mcg Dextrose (D50w Syringe) 0 gm IV X1 PRN; Protocol PRN Reason: Hypoglycemia Enoxaparin Sodium (Lovenox) 40 mg SC DAILY@1000 [facility] Last Admin: 10/30/17 09:33 Dose: 40 mg Famotidine (Pepcid) 20 mg PO BID [facility] Last Admin: 10/30/17 09:33 Dose: 20 mg Gabapentin (Neurontin) 100 mg PO TIDCM [facility] Last Admin: 10/30/17 12:08 Dose: 100 mg Glucagon () 1 mg IM .X1 PRN PRN Reason: Hypoglycemia Hydrochlorothiazide (Hctz) 25 mg PO QAM [facility] Last Admin: 10/30/17 09:33 Dose: 25 mg Insulin Glargine (Lantus (Bkc)) 60 units SC QHS [facility] Last Admin: 10/29/17 22:18 Dose: 60 u Insulin Human Lispro (Humalog Kwikpen (Bkc)) 0 unit SQ ACHS [facility] PRN Reason: Protocol Last Admin: 10/30/17 12:09 Dose: 1 units Insulin Human Lispro (Humalog Kwikpen (Bkc)) 10 unit SC 0800,1200,1700 [facility] Last Admin: 10/30/17 12:09 Dose: 11 units Labetalol HCl (Trandate) 100 mg PO BID [facility] Last Admin: 10/30/17 09:33 Dose: 100 mg Labetalol HCl (Trandate) 10 mg IV Q6H PRN PRN PRN Reason: BLOOD PRESSURE Last Admin: 10/29/17 23:28 Dose: 10 mg Lisinopril (Zestril) 40 mg PO DAILY [facility] Last Admin: 10/30/17 09:33 Dose: 40 mg Magnesium Hydroxide (Milk Of Magnesia) 30 ml PO DAILY PRN PRN PRN Reason: Constipation Morphine Sulfate () 2 - 4 mg IV Q4H PRN PRN PRN Reason: MOD-SEVERE PAIN (4-10/10) Morphine Sulfate () 2 - 4 mg IV Q4H PRN PRN PRN Reason: MOD-SEVERE PAIN (4-10/10) Last Admin: 10/30/17 12:27 Dose: 4 mg Multivitamins (Multivitamin) 1 tablet PO DAILY@0800 [facility] Last Admin: 10/30/17 08:43 Dose: 1 tablet Oxycodone HCl (Oxyir) 5 - 10 mg PO Q4H PRN PRN PRN Reason: MOD-SEVERE PAIN (4-10/10) Last Admin: 10/30/17 08:36 Dose: 10 mg Psyllium Hydrophilic Mucilloid (Metamucil) 1 packet PO DAILY PRN PRN PRN Reason: CONSTIPATION Senna/Docusate Sodium (Senokot-S, Gail-Colace) 2 tablet PO BID [facility] Last Admin: 10/30/17 09:33 Dose: 2 tablet Medical Necessity - Tobacco Use Smoking Status: Former smoker Tobacco Use: Non-smoker Assessment/Plan All Active Problems (Last Reviewed 09/01/17 @ 13:56 by Ho Landeros, DO) Acute back pain (Acute) Hypertensive urgency (Acute) 62 year old F with past medical history of chronic back pain ongoing for months , hypertension, obesity comes in with complaints of acute pain which is been getting worse for the last few weeks as well as right leg numbness. 1. Acute on chronic back pain secondary to degenerative disc, MRI of the lumbar spine shows L4-L5 spondylolisthesis with disc bulge encroaching the left intervertebral foramen. Patient has numbness in the right lower extremity. Pain is still uncontrolled on oxycodone and morphine IV. Plan: Continue with current pain management regimen, discussed with Dr. Naylor, he plans on doing a possible epidural injection tomorrow, would see patient to evaluate. Patient will need referral for neurosurgery evaluation ultimately. 2. Hypertensive urgency, complicated by uncontrolled pain, blood pressure is fairly controlled, would add amlodipine, continue other home regimen. 3. Hyperlipidemia, on statins. 4. Type II DM, on Lantus insulin, blood sugars are slightly better controlled, will continue with home insulin regimen as well as Accu-Cheks with insulin sliding scale 5. DVT prophylaxis with Lovenox subcu 6. Disposition: Depending on outcomes after possible epidural injection by Dr. Naylor, patient to be discharged home with home health and neurosurgery follow- up. Code Visit Inpatient E&M: 12549 Subs Hosp L3
[2017-10-30 17:45] LABS: Bedside Glucose 189 mg/dL (70-110)
[2017-10-30] MEDS: Atorvastatin Calcium 20 MG Tablet PO (21:14)
[2017-10-30 21:26] LABS: Bedside Glucose 184 mg/dL (70-110)
[2017-10-30] MEDS: Morphine 2 MG/ML Syringe IV (21:53)
[2017-10-31] VITALS (12 sets, daily range): BP systolic 157–175; BP diastolic 58–89; PULSE 73–110; RESP 16; TEMP 37–37.3; O2SAT 94–98
[2017-10-31] MEDS: oxyCODONE 5 MG Tablet PO ×4 (03:19→21:34)
[2017-10-31] MEDS: Insulin Lispro 100 UNIT/ML INSULN.PEN SQ ×4 (07:39→21:36)
[2017-10-31] MEDS: Insulin Lispro 100 UNIT/ML INSULN.PEN 10 UNIT SC ×3 (07:40→16:26)
[2017-10-31] MEDS: Aspirin 81 MG TAB.CHEW PO (07:43)
[2017-10-31] MEDS: Gabapentin 100 MG Capsule PO ×3 (07:43→16:28)
[2017-10-31] MEDS: Calcium Carb/Vitamin D 1 TABLET Tablet PO ×2 (07:43→16:28)
[2017-10-31] MEDS: Multivitamins,Therapeutic Tablet 1 TABLET PO (07:43)
[2017-10-31] MEDS: Bisacodyl 5 MG Tablet PO (09:02)
[2017-10-31] MEDS: Enoxaparin 40 MG/0.4 ML Syringe SC (09:02)
[2017-10-31] MEDS: Lisinopril 40 MG Tablet PO (09:03)
[2017-10-31] MEDS: Ascorbic Acid 500 MG Tablet PO (09:03)
[2017-10-31] MEDS: Famotidine 20 MG Tablet PO ×2 (09:04→21:34)
[2017-10-31] MEDS: Senna/Docusate Sodium 1 Tablet 2 TABLET PO ×2 (09:04→21:35)
[2017-10-31] MEDS: amLODIPine 5 MG Tablet PO (09:04)
[2017-10-31] MEDS: hydroCHLOROthiazide 25 MG Tablet PO (09:04)
[2017-10-31] MEDS: Labetalol 100 MG Tablet PO ×2 (09:04→21:35)
[2017-10-31] MEDS: Cyanocobalamin 500 MCG Tablet PO (09:04)
--- NOTE | 2017-10-31 11:04 | CASEMGMT ---
Face to Face with patient for initial transition planning/care coordination assessment. COLLIN ROJO introduced self and role at [facility], pt voices understanding and consents to assessment at this time. Pt is sitting up in bed in no distress at this time. Pt is A/O x4 at this time and answers all questions appropriately at this time. Care providers, pharmacy, and demographics verified. See attached link. Pt voices no further concerns/needs at this time. Advised pt to ask for CM if any further questions/concerns/needs arise, voices understanding. [place]
[2017-10-31] MEDS: Morphine 2 MG/ML Syringe IV (11:36)
[2017-10-31 11:51] LABS: Bedside Glucose 184 mg/dL (70-110)
--- NOTE | 2017-10-31 13:08 | PCM.PN.HOSP ---
Patient Problems: Active and Suspected Problems (Last Reviewed 09/01/17 @ 13:56 by Ho Lanedros, ) Acute back pain (Acute) Hypertensive urgency (Acute) Subjective: Patient with no acute events overnight per self and per nursing report. Blood pressures have improved and the patient does admit that she has been severely uncontrolled outpatient and has required several medications for attempted improvement. She notes back discomfort currently improved since initial presentation although did have recent IV morphine administration. She states that secondary to her ongoing chronic back pain and radiculopathy she uses a cane and/or her walker at home baseline. Patient denies fevers, chills, nausea, emesis, abdominal pain, chest pain or dyspnea. Objective: Physical Examination: General: awake, alert, oriented x 3 and cooperative, seated upright in bedside chair, in no apparent distress, did a transition with walker from bathroom to bedside chair with no assist. Skin: normal color, turgor, no icterus, cyanosis. HEENT: AT/NC, EOMI, PERRLA, MMM. Lungs: CTA bilaterally although distant BS likely secondary to habitus, moderate effort, mild decrease BL bases, no rales, ronchi or wheezing. Heart: Regular rate and rhythm; no gallop, rub audible. Abdomen: soft, obese, NTTP, ND, normal BS. Extremities: no cyanosis, clubbing, mild ankle edema, lumbar discomfort with radiculopathy to right lower extremity, acute on chronic, + SLR. Neurological: patient awake, alert, oriented x 3; cognitive function intact; pupils equally reactive to light and accomodation; cranial nerves II-XII grossly normal, moving all 4 extremities limited secondary to acute presentation, no focal deficits, strength moderately to severely globally decreased secondary to acute presentation. Psychiatric: affect appears normal, no acute evidence of depressive or anxiety feelings. Vitals/I&O's: Vital Signs Temp Pulse Resp BP Pulse Ox 98.9 F 95 16 166/73 H 96 10/31/17 08:55 10/31/17 11:06 10/31/17 08:55 10/31/17 08:55 10/31/17 08:55 Oxygen Delivery Method Room Air Weight: 239 lb 6.752 oz Body Mass Index (BMI) 39.8 Intake and Output for Last 24 Hours 10/29/17 10/30/17 10/31/17 23:59 23:59 23:59 Intake Total 200 / 200 840 / 840 560 / 560 Output Total 500 / 500 600 / 600 Balance 200 / 200 340 / 340 -40 / -40 Laboratory Results 10/30/17 17:33: POC Glucose 189 H 10/30/17 21:07: POC Glucose 184 H 10/31/17 11:32: POC Glucose 184 H Current Medications Acetaminophen (Tylenol) 650 mg PO Q6H PRN PRN PRN Reason: Mild Pain (1-3)/Temp > 100.7 F Last Admin: 10/29/17 23:14 Dose: 650 mg Amlodipine Besylate (Norvasc) 5 mg PO DAILY [facility] Last Admin: 10/31/17 09:04 Dose: 5 mg Ascorbic Acid (Vitamin C) 500 mg PO DAILY [facility] Last Admin: 10/31/17 09:03 Dose: 500 mg [facility] Admin: 10/31/17 07:43 Dose: 81 mg Atorvastatin Calcium (Lipitor) 20 mg PO QHS [facility] Last Admin: 10/30/17 21:14 Dose: 20 mg Bisacodyl (Dulcolax) 5 mg PO DAILY PRN PRN PRN Reason: Constipation Last Admin: 10/31/17 09:02 Dose: 5 mg Calcium/Vitamin D (Os-Yogesh 500mg + D) [facility] Last Admin: 10/31/17 07:43 Dose: 1 tablet Cholecalciferol (Vitamin D) 2,000 unit PO DAILY [facility] Last Admin: 10/31/17 09:03 Dose: 2,000 unit Cyanocobalamin (Vitamin B12) 500 mcg PO DAILY [facility] Last Admin: 10/31/17 09:04 Dose: 500 mcg Dextrose (D50w Syringe) 0 gm IV X1 PRN; Protocol PRN Reason: Hypoglycemia Enoxaparin Sodium (Lovenox) 40 mg SC DAILY@1000 [facility] Last Admin: 10/31/17 09:02 Dose: 40 mg Famotidine (Pepcid) 20 mg PO BID [facility] Last Admin: 10/31/17 09:04 Dose: 20 mg Gabapentin (Neurontin) 100 mg PO TIDCM [facility] Last Admin: 10/31/17 11:36 Dose: 100 mg Glucagon () 1 mg IM .X1 PRN PRN Reason: Hypoglycemia Hydrochlorothiazide (Hctz) 25 mg PO QAM [facility] Last Admin: 10/31/17 09:04 Dose: 25 mg Insulin Glargine (Lantus (Bk)) 60 units SC QHS [facility] Last Admin: 10/30/17 21:13 Dose: 60 u Insulin Human Lispro (Humalog Kwikpen (Bk)) 0 unit SQ ACHS [facility] PRN Reason: Protocol Last Admin: 10/31/17 11:35 Dose: 1 units Insulin Human Lispro (Humalog Kwikpen ([facility])) 10 unit SC 0800,1200,1700 [facility] Last Admin: 10/31/17 11:36 Dose: 10 units Labetalol HCl (Trandate) 100 mg PO BID [facility] Last Admin: 10/31/17 09:04 Dose: 100 mg Labetalol HCl (Trandate) 10 mg IV Q6H PRN PRN PRN Reason: BLOOD PRESSURE Last Admin: 10/29/17 23:28 Dose: 10 mg Lisinopril (Zestril) 40 mg PO DAILY [facility] Last Admin: 10/31/17 09:03 Dose: 40 mg Magnesium Hydroxide (Milk Of Magnesia) 30 ml PO DAILY PRN PRN PRN Reason: Constipation Morphine Sulfate () 2 - 4 mg IV Q4H PRN PRN PRN Reason: MOD-SEVERE PAIN (4-10/10) Last Admin: 10/31/17 11:36 Dose: 2 mg Morphine Sulfate () 2 - 4 mg IV Q4H PRN PRN PRN Reason: MOD-SEVERE PAIN (4-10/10) Last Admin: 10/30/17 12:27 Dose: 4 mg Multivitamins (Multivitamin) 1 tablet PO DAILY@0800 [facility] Last Admin: 10/31/17 07:43 Dose: 1 tablet Nutritional Formula (Lactose Free) (Glucerna Shake) 120 ml PO 4X/DAY [facility] Oxycodone HCl (Oxyir) 5 - 10 mg PO Q4H PRN PRN PRN Reason: MOD-SEVERE PAIN (4-10/10) Last Admin: 10/31/17 09:02 Dose: 10 mg Psyllium Hydrophilic Mucilloid (Metamucil) 1 packet PO DAILY PRN PRN PRN Reason: CONSTIPATION Senna/Docusate Sodium (Senokot-S, Gail-Colace) 2 tablet PO BID [facility] Last Admin: 10/31/17 09:04 Dose: 2 tablet Medical Necessity - Tobacco Use Smoking Status: Former smoker Tobacco Use: Non-smoker Assessment/Plan All Active Problems (Last Reviewed 09/01/17 @ 13:56 by Ho Landeros DO) Acute back pain (Acute) Hypertensive urgency (Acute) The patient is a 62 y/o F w/ PMHx: HTN Poorly controlled outpatient, HLD, Diabetes mellitus type II, Chronic Back Pain w/ RLE radiculopathy/sciatica following w/ her PCP for this ongoing chronic issue who presents to the [facility] ED on 10/31/17 with acute on chronic back pain progressively worsening over the last 2 weeks. (1) Acute on Chronic Intractable Back Pain w/ Worsened RLE Radiculopathy/Sciatic: ED CT Lumbar Spine w/ multilevel moderately advanced degenerative changes of the thoracolumbar spine with degenerative facet arthritis and L4 vertebral grade 1 spondylolisthesis, CT Chest and A/P w/ no evidence of abdominal aortic aneurysm or dissection, infrarenal mild atherosclerotic calcification, hepatic steatosis, 2.7 cm left adrenal mass, sigmoid diverticulosis, fibroid uterus, moderately advanced degenerative spondylitic changes in the thoracic and lumbar spine. Admitted to [place], maintained on fall precautions, frequent positioning, po/IV pain regimen, MRI Lumbar Spine w/ mild scoliosis with convexity to the right, 7.4 mm spondylolisthesis L4-L5, asymmetric disc bulging at L4-5 due to bulging disc encroaching into the left intervertebral foramen, disc extrusion right paracentral location and measuring 1.3 x 0.7 cm, 7.7 mm proximal/crenated right para pedicular extension of the extruded disc. Flexeril PRN, anti-emetics, bowel regimen. Will consult PT and OT for evaluation. Pending Dr. Naylor consultation for consideration of intervention possibilities. NPO after midnight in case of intervention and AM hold on chemoprophylaxis. (2) Hypertensive Urgency: Notably elevated BP upon presentation, SBP 200-220, notes extremely controlled blood pressure likely complicated by acute pain upon presentation. BP improved upon admission with pain control and addition of Norvasc, lisinopril, labetalol, HCTZ. PRN labetolol, hydralazine. Given notable regimen usage, will plan referral to Nephrology upon discharge. (3) Hyperlipidemia: Continue home statin regimen. (4) Diabetes mellitus type II: Hold oral home regimen, continue home insulin regimen, ADA diet, accu checks w/ ISS, nutrition consultation for education and teaching. (5) Obesity: Weight loss and lifestyle changes encouraged, nutrition consulted. (6) DVT Prophylaxis: SCDs, lovenox. Code Visit Inpatient E&M: 28836 Subs Hosp L2
--- NOTE | 2017-10-31 13:21 | PN_ITS ---
Patient Problems: Active and Suspected Problems (Last Reviewed 09/01/17 @ 13:56 by Ho Landeros , ) Acute back pain (Acute) Hypertensive urgency (Acute) Subjective: Patient with no acute events overnight per self and per nursing report. Blood pressures have improved and the patient does admit that she has been severely uncontrolled outpatient and has required several medications for attempted improvement. She notes back discomfort currently improved since initial presentation although did have recent IV morphine administration. She states that secondary to her ongoing chronic back pain and radiculopathy she uses a cane and/or her walker at home baseline. Patient denies fevers, chills, nausea , emesis, abdominal pain, chest pain or dyspnea. Objective: Physical Examination: General: awake, alert, oriented x 3 and cooperative, seated upright in bedside chair, in no apparent distress, did a transition with walker from bathroom to bedside chair with no assist. Skin: normal color, turgor, no icterus, cyanosis. HEENT: AT/NC, EOMI, PERRLA, MMM. Lungs: CTA bilaterally although distant BS likely secondary to habitus, moderate effort, mild decrease BL bases, no rales, ronchi or wheezing. Heart: Regular rate and rhythm; no gallop, rub audible. Abdomen: soft, obese, NTTP, ND, normal BS. Extremities: no cyanosis, clubbing, mild ankle edema, lumbar discomfort with radiculopathy to right lower extremity, acute on chronic, + SLR. Neurological: patient awake, alert, oriented x 3; cognitive function intact; pupils equally reactive to light and accomodation; cranial nerves II-XII grossly normal, moving all 4 extremities limited secondary to acute presentation , no focal deficits, strength moderately to severely globally decreased secondary to acute presentation. Psychiatric: affect appears normal, no acute evidence of depressive or anxiety feelings. Vitals/I&O's: Vital Signs Temp Pulse Resp BP Pulse Ox 98.9 F 95 16 166/73 H 96 10/31/17 08:55 10/31/17 11:06 10/31/17 08:55 10/31/17 08:55 10/31/17 08:55 Oxygen Delivery Method Room Air Weight: 239 lb 6.752 oz Body Mass Index (BMI) 39.8 Intake and Output for Last 24 Hours 10/29/17 10/30/17 10/31/17 23:59 23:59 23:59 Intake Total 200 / 200 840 / 840 560 / 560 Output Total 500 / 500 600 / 600 Balance 200 / 200 340 / 340 -40 / -40 Laboratory Results 10/30/17 17:33: POC Glucose 189 H 10/30/17 21:07: POC Glucose 184 H 10/31/17 11:32: POC Glucose 184 H Current Medications Acetaminophen (Tylenol) 650 mg PO Q6H PRN PRN PRN Reason: Mild Pain (1-3)/Temp > 100.7 F Last Admin: 10/29/17 23:14 Dose: 650 mg Amlodipine Besylate (Norvasc) 5 mg PO DAILY [facility] Last Admin: 10/31/17 09:04 Dose: 5 mg Ascorbic Acid (Vitamin C) 500 mg PO DAILY [facility] Last Admin: 10/31/17 09:03 Dose: 500 mg [facility] ([facility], Baby) [facility] Last Admin: 10/31/17 07:43 Dose: 81 mg Atorvastatin Calcium (Lipitor) 20 mg PO QHS [facility] Last Admin: 10/30/17 21:14 Dose: 20 mg Bisacodyl (Dulcolax) 5 mg PO DAILY PRN PRN PRN Reason: Constipation Last Admin: 10/31/17 09:02 Dose: 5 mg Calcium/Vitamin D (Os-Yogesh 500mg + D) [facility] Last Admin: 10/31/17 07:43 Dose: 1 tablet Cholecalciferol (Vitamin D) 2,000 unit PO DAILY [facility] Last Admin: 10/31/17 09:03 Dose: 2,000 unit Cyanocobalamin (Vitamin B12) 500 mcg PO DAILY [facility] Last Admin: 10/31/17 09:04 Dose: 500 mcg Dextrose (D50w Syringe) 0 gm IV X1 PRN; Protocol PRN Reason: Hypoglycemia Enoxaparin Sodium (Lovenox) 40 mg SC DAILY@1000 [facility] Last Admin: 10/31/17 09:02 Dose: 40 mg Famotidine (Pepcid) 20 mg PO BID [facility] Last Admin: 10/31/17 09:04 Dose: 20 mg Gabapentin (Neurontin) 100 mg PO TIDCM [facility] Last Admin: 10/31/17 11:36 Dose: 100 mg Glucagon () 1 mg IM .X1 PRN PRN Reason: Hypoglycemia Hydrochlorothiazide (Hctz) 25 mg PO QAM [facility] Last Admin: 10/31/17 09:04 Dose: 25 mg Insulin Glargine (Lantus (Bk)) 60 units SC QHS [facility] Last Admin: 10/30/17 21:13 Dose: 60 u Insulin Human Lispro (Humalog Kwikpen (Bk)) 0 unit SQ ACHS [facility] PRN Reason: Protocol Last Admin: 10/31/17 11:35 Dose: 1 units Insulin Human Lispro (Humalog Kwikpen ([facility])) 10 unit SC 0800,1200,1700 [facility] Last Admin: 10/31/17 11:36 Dose: 10 units Labetalol HCl (Trandate) 100 mg PO BID [facility] Last Admin: 10/31/17 09:04 Dose: 100 mg Labetalol HCl (Trandate) 10 mg IV Q6H PRN PRN PRN Reason: BLOOD PRESSURE Last Admin: 10/29/17 23:28 Dose: 10 mg Lisinopril (Zestril) 40 mg PO DAILY [facility] Last Admin: 10/31/17 09:03 Dose: 40 mg Magnesium Hydroxide (Milk Of Magnesia) 30 ml PO DAILY PRN PRN PRN Reason: Constipation Morphine Sulfate () 2 - 4 mg IV Q4H PRN PRN PRN Reason: MOD-SEVERE PAIN (4-10/10) Last Admin: 10/31/17 11:36 Dose: 2 mg Morphine Sulfate () 2 - 4 mg IV Q4H PRN PRN PRN Reason: MOD-SEVERE PAIN (4-10/10) Last Admin: 10/30/17 12:27 Dose: 4 mg Multivitamins (Multivitamin) 1 tablet PO DAILY@0800 [facility] Last Admin: 10/31/17 07:43 Dose: 1 tablet Nutritional Formula (Lactose Free) (Glucerna Shake) 120 ml PO 4X/DAY [facility] Oxycodone HCl (Oxyir) 5 - 10 mg PO Q4H PRN PRN PRN Reason: MOD-SEVERE PAIN (4-10/10) Last Admin: 10/31/17 09:02 Dose: 10 mg Psyllium Hydrophilic Mucilloid (Metamucil) 1 packet PO DAILY PRN PRN PRN Reason: CONSTIPATION Senna/Docusate Sodium (Senokot-S, Gail-Colace) 2 tablet PO BID [facility] Last Admin: 10/31/17 09:04 Dose: 2 tablet Medical Necessity - Tobacco Use Smoking Status: Former smoker Tobacco Use: Non-smoker Assessment/Plan All Active Problems (Last Reviewed 09/01/17 @ 13:56 by Ho Landeros DO) Acute back pain (Acute) Hypertensive urgency (Acute) The patient is a 62 y/o F w/ PMHx: HTN Poorly controlled outpatient, HLD, Diabetes mellitus type II, Chronic Back Pain w/ RLE radiculopathy/sciatica following w/ her PCP for this ongoing chronic issue who presents to the [facility] ED on 10/31/17 with acute on chronic back pain progressively worsening over the last 2 weeks. (1) Acute on Chronic Intractable Back Pain w/ Worsened RLE Radiculopathy/Sciatic : ED CT Lumbar Spine w/ multilevel moderately advanced degenerative changes of the thoracolumbar spine with degenerative facet arthritis and L4 vertebral grade 1 spondylolisthesis, CT Chest and A/P w/ no evidence of abdominal aortic aneurysm or dissection, infrarenal mild atherosclerotic calcification, hepatic steatosis, 2.7 cm left adrenal mass, sigmoid diverticulosis, fibroid uterus, moderately advanced degenerative spondylitic changes in the thoracic and lumbar spine. Admitted to [place], maintained on fall precautions, frequent positioning, po/ IV pain regimen, MRI Lumbar Spine w/ mild scoliosis with convexity to the right , 7.4 mm spondylolisthesis L4-L5, asymmetric disc bulging at L4-5 due to bulging disc encroaching into the left intervertebral foramen, disc extrusion right paracentral location and measuring 1.3 x 0.7 cm, 7.7 mm proximal/crenated right para pedicular extension of the extruded disc. Flexeril PRN, anti-emetics , bowel regimen. Will consult PT and OT for evaluation. Pending Dr. Naylor consultation for consideration of intervention possibilities. NPO after midnight in case of intervention and AM hold on chemoprophylaxis. (2) Hypertensive Urgency: Notably elevated BP upon presentation, SBP 200-220, notes extremely controlled blood pressure likely complicated by acute pain upon presentation. BP improved upon admission with pain control and addition of Norvasc, lisinopril, labetalol, HCTZ. PRN labetolol, hydralazine. Given notable regimen usage, will plan referral to Nephrology upon discharge. (3) Hyperlipidemia: Continue home statin regimen. (4) Diabetes mellitus type II: Hold oral home regimen, continue home insulin regimen, ADA diet, accu checks w/ ISS, nutrition consultation for education and teaching. (5) Obesity: Weight loss and lifestyle changes encouraged, nutrition consulted. (6) DVT Prophylaxis: SCDs, lovenox. Code Visit Inpatient E&M: 18498 Subs Hosp L2
[2017-10-31] MEDS: Glucerna Shake 120 ML LIQUID PO ×3 (15:17→21:34)
[2017-10-31 16:36] LABS: Bedside Glucose 246 mg/dL (70-110)
[2017-10-31] MEDS: hydrALAZINE 20 MG/ML Vial 10 MG IV (20:46)
[2017-10-31] MEDS: Atorvastatin Calcium 20 MG Tablet PO (21:35)
[2017-10-31 21:46] LABS: Bedside Glucose 245 mg/dL (70-110)
[2017-11-01] VITALS (13 sets, daily range): BP systolic 147–169; BP diastolic 62–79; PULSE 86–99; RESP 16–18; TEMP 36.9–37.4; O2SAT 94–98; BMI 39.8
[2017-11-01] MEDS: Morphine 4 MG/ML Syringe IV ×3 (01:58→14:13)
[2017-11-01] MEDS: oxyCODONE 5 MG Tablet PO (05:43)
[2017-11-01] MEDS: hydrALAZINE 20 MG/ML Vial 10 MG IV (05:45)
--- NOTE | 2017-11-01 05:55 | RAD_ITS ---
STUDY: X-RAY - LUMBAR SPINE REASON FOR EXAM: Female, 62 years old. Chronic low back pain. TECHNIQUE: Oblique and lateral flexion and extension view(s) of the lumbar spine were obtained. COMPARISON: Comparison is made with prior examination dated 05/31/2017. FINDINGS: There is a grade 1 to grade 2 anterior listhesis of L4 on L5. This worsens with the flexion movement. RAD/L/S Spine Min 4 Views IMPRESSION: Worsening of the anterolisthesis of L4 on L5 with flexion maneuver. Electronically Signed: Tiago Moncada MD at 15:59 EDT Tel [phone], Service support ,
--- NOTE | 2017-11-01 05:55 | EKG12_ITS ---
Test Reason : HTN Blood Pressure : / mmHG Vent. Rate : 094 BPM Atrial Rate : 094 BPM P-R Int : 164 ms QRS Dur : 086 ms QT Int : 378 ms P-R-T Axes : 048 -29 045 degrees QTc Int : 472 ms Normal sinus rhythm Normal ECG When compared with ECG of 29-OCT-2017 08:09, MANUAL COMPARISON REQUIRED, DATA IS UNCONFIRMED Confirmed by SANJEEV SOL, DESTINY ([id number]), general expeditor LEONARDO TUCKER ([id number]) on 11/03/2017 9:51:52 AM Referred By: Lars Swenson Confirmed By:DETSINY PACE MD
[2017-11-01 06:41] LABS: Absolute Lymphocyte Count 1.45 X10^3/ul (0.83-4.51); Absolute Neutrophil Count 3.6 X10^3/uL (2.0-7.7); Basophil# 0.03 X10^3/uL; Basophil% 0.5 % (0-1); Eosinophil# 0.07 X10^3/uL; Eosinophils% 1.2 % (0-5); Hematocrit 40.5 % (37-47); Hemoglobin 13.3 g/dl (12.0-15.0); Lymphocyte # 1.45 X10^3/ul (4.0); Lymphocyte % 25.1 % (19-41); Mean Corp Hgb Conc 32.8 g/gl (32-36); Mean Corpuscular Hgb 30.3 pg (27.0-32.0); Mean Corpuscular Volume 92.3 fL (81-99); Mean Platelet Vol. 9.3 fl (6.2-12.0); Monocyte% 10.4 % (0-10); Neutrophil # 3.57 X10^3/uL (2.7-7.7); Neutrophil % 61.8 % (47-70); Platelet Count 223 K/mm3 (150-450); RBC Distribution Width CV 13.2 % (11.6-14.6); RBC Distribution Width SD 43.9 fl (35.1-43.9); Red Blood Count 4.39 M/mm3 (4.2-5.4); White Blood Count 5.8 K/mm3 (4.4-11.0)
[2017-11-01 06:44] LABS: POSITIVE COUNT NO; POSITIVE DIFFERENTIAL NO; POSITIVE MORPHOLOGY NO
[2017-11-01 06:49] LABS: Anion Gap 6 (5-15); BUN 22 mg/dL (7-18); BUN/Creat Ratio 23.3 RATIO (10-20); Calcium,Total 9.4 mg/dL (8.5-10.1); Chloride 104 mmol/L (98-107); Creatinine, Serum 0.94 mg/dL (0.55-1.02); EST Glomerular Filtration Rate 64 mL/min (>60); Est Glom Filt Rate - Afr Amer 77 mL/min (>60); Estimated Creatinine Clearance 55.84 ml/min; Glucose 233 mg/dL (74-106); Potassium 4.1 mmol/L (3.5-5.1); Sodium Level 139 mmol/L (136-145)
[2017-11-01 06:50] LABS: Partial Thromboplast Time 27.5 Seconds (24.1-36.2); Prothrombin Time (Protime)PT. 12.7 SECONDS (11.7-14.9)
[2017-11-01 06:55] LABS: Bedside Glucose 237 mg/dL (70-110)
[2017-11-01] MEDS: Gabapentin 100 MG Capsule PO (10:54)
[2017-11-01] MEDS: Labetalol 100 MG Tablet PO (10:54)
[2017-11-01] MEDS: amLODIPine 5 MG Tablet PO (10:54)
[2017-11-01] MEDS: Lisinopril 40 MG Tablet PO (10:54)
--- NOTE | 2017-11-01 11:52 | PCM.DC ---
- Discharge Diagnoses Current Active Problems: Current Active and Chronic Problems (Last Reviewed 09/01/17 @ 13:56 by Ho Landeros DO) (1) Acute on Chronic Intractable Back Pain w/ Worsened RLE Radiculopathy/Sciatic (2) Hypertensive Urgency (3) Hyperlipidemia (4) Diabetes mellitus type II (5) Obesity You will use the following diet at home:: Calorie/Carbohydrate Controlled (specify 1200, 1400, etc), Cardiac Your food should be the consistency of: Regular Your liquids should be the consistency of: Regular/Thin Discharge Activity: Use Walker, - - Defer any aggressive activities until re-assessment per your primary care physician and Dr. Naylor. May resume sexual activity in: - - Defer until improved and cleared per Dr. Naylor and your primary care physician. Weight Bearing Status: Weight bearing as tolerated Call your doctor if you observe: Fever of 101 or Higher, Inability to urinate, Inability to have a bowel movement, Shortness of breath, Dizziness, Fainting spells, Chest pain, Uncontrolled pain Instructions: What is Lumbar Epidural Injection?, Lumbar Epidural Injection: Your Procedure, Lumbar Epidural Injection: Recovery at Home, Controlling High Blood Pressure, Low-Salt Choices, What Is High Blood Pressure?, Discharge Instructions for High Blood Pressure (Hypertension) Additional Instructions: Please continue to trend your blood pressure. Upon evaluation per your primary care physician you may need additional adjustments. If you continue to have elevated blood pressures we recommend you discuss Nephrology evaluation outpatient with your primary care physician. Allergies/Adverse Reactions: Allergies No Known Allergies Allergy (Unverified 10/29/17 06:47) Medications to take at Discharge ascorbic acid (vitamin C) 500 mg tablet 500 mg PO QDAY 08/18/17 aspirin 81 mg chewable tablet 1 tab PO DAILY 08/18/17 calcium carbonate 600 mg calcium (1,500 mg) tablet 600 mg PO BID tab 08/18/17 cholecalciferol (vitamin D3) 2,000 unit capsule 2,000 unit PO QDAY 08/18/17 hydrochlorothiazide 25 mg tablet 25 mg PO QAM #90 tab 08/18/17 insulin glargine (U-100) 100 unit/mL (3 mL) subcutaneous pen 60 unit SC QHS ml 08/18/17 insulin glulisine (U-100) 100 unit/mL subcutaneous pen 10 unit SC TID ml 08/18/17 labetalol 100 mg tablet 100 mg PO BID 08/18/17 lisinopril 40 mg tablet 40 mg PO QDAY 08/18/17 multivitamin tablet 1 tab PO QAM 08/18/17 simvastatin 40 mg tablet 40 mg PO QHS 08/18/17 vitamin B12 500 mcg-folic acid 400 mcg tablet 1 tab PO QDAY 08/18/17 Amlodipine [Norvasc] 10 mg PO DAILY #30 tab 11/01/17 Gabapentin [Neurontin] 100 mg PO TIDCM #90 cap 11/01/17 Oxycodone [Oxyir] 5 - 10 mg PO Q4H PRN PRN 2 Days #20 tablet 11/01/17 Senna/Docusate Sodium [Senokot-S] 2 tab PO BID #60 tab 11/01/17 hydrocodone 5 mg-acetaminophen 325 mg tablet 1 tab PO .twice daily PRN #60 tab 11/01/17 The following prescriptions were given: Oxycodone [Oxyir] 5 - 10 mg PO Q4H PRN PRN 2 Days #20 tablet PRN Reason: Mod-Severe Pain (-02/22) Amlodipine [Norvasc] 10 mg PO DAILY #30 tab Senna/Docusate Sodium [Senokot-S] 2 tab PO BID #60 tab Gabapentin [Neurontin] 100 mg PO TIDCM #90 cap Primary Care Physician: Ho Landeros DO [Primary Care Provider] - Please follow up with your Primary Care Physician in: Follow-up within 3-5 days to review admission, changes. Please Follow Up With: Cindy Naylor MD When: As directed or within 1 week. Please Follow Up With: Outpatient Therapies When: Rx given for outpatient physical/occupation therapy, arrange. Proposed Discharge Date: 11/01/17
--- NOTE | 2017-11-01 11:58 | DS.PCM_ITS ---
Discharge Date and Diagnosis - Problem List Patient Problems: Active and Suspected Problems (Last Reviewed 09/01/17 @ 13:56 by Ho Landeros DO) Acute back pain (Acute) Hypertensive urgency (Acute) Date of Admission: 10/29/17 Date of Discharge: 11/01/17 - Primary Discharge Diagnosis Active and Suspected Problems (Last Reviewed 09/01/17 @ 13:56 by Ho Landeros DO) (1) Acute on Chronic Intractable Back Pain w/ Worsened RLE Radiculopathy/ Sciatic w/ DDD w/ asymmetric disc bulging L4-5 due to bulging disc encroaching into the left intervertebral foramen, disc extrusion right paracentral location and measuring 1.3 x 0.7 cm, 7.7 mm proximal/crenated right para pedicular extension of the extruded disc (2) Hypertensive Urgency (3) Incidental 2.7 cm left adrenal mass (4) Hyperlipidemia (5) Diabetes mellitus type II (6) Obesity - Secondary Discharge Diagnosis Chronic Problems (Last Reviewed 09/01/17 @ 13:56 by Ho Landeros DO) Arthritis (Chronic) Mitral valve prolapse (Chronic) Neuropathy (Chronic) Chronic pain (Chronic) Hyperlipemia (Chronic) Hypertension (Chronic) Type 2 diabetes mellitus (Chronic) Hospital Course and Treatment Imaging Results: 11/01/17 05:55 L/S Spine Min 4 Views [RAD] Routine 11/01/17 13:59 Lumbar Spine 2 or 3 Views [RAD] Routine OR-Steroi/Epi Inj/Lum Sac/2ndL [RAD] Routine OR-Steroi/Epid Inj/Lum Sac/1st [RAD] Routine Dr. Naylor Pain management Operations: - - OR w/ Dr. Naylor for epidural injection 11/01/17 Procedures: EKG Summary of Care Provided: The patient is a 62 y/o F w/ PMHx: HTN Poorly controlled outpatient, HLD, Diabetes mellitus type II, Chronic Back Pain w/ RLE radiculopathy/sciatica following w/ her PCP for this ongoing chronic issue who presented to the [facility] ED on 10/31/17 with acute on chronic back pain progressively worsening over the last [address] Lumbar Spine w/ multilevel moderately advanced degenerative changes of the thoracolumbar spine with degenerative facet arthritis and L4 vertebral grade 1 spondylolisthesis, CT Chest and A/P w/ no evidence of abdominal aortic aneurysm or dissection, infrarenal mild atherosclerotic calcification, hepatic steatosis, 2.7 cm left adrenal mass, sigmoid diverticulosis, fibroid uterus, moderately advanced degenerative spondylitic changes in the thoracic and lumbar spine. Admitted to ND, maintained on fall precautions, frequent positioning, po/IV pain regimen, MRI Lumbar Spine w/ mild scoliosis with convexity to the right, 7.4 mm spondylolisthesis L4-L5, asymmetric disc bulging at L4-5 due to bulging disc encroaching into the left intervertebral foramen, disc extrusion right paracentral location and measuring 1.3 x 0.7 cm, 7.7 mm proximal/crenated right para pedicular extension of the extruded disc. Dr. Naylor consultation performed and patient 11/01/17 epidural lumbar injection performed. PT, OT evaluation with recommended outpatient therapies which was set-up upon discharge. Upon presentation notably BP upon presentation, SBP 200-220 with admitted extremely uncontrolled blood pressure outpatient likely complicated by acute pain upon presentation. BP improved upon admission with pain control and addition of Norvasc, lisinopril, labetalol, HCTZ. Patient discharged to home on altered BP regimen with recommended re- evaluation with PCP and consideration Nephrology referral if remained elevated. Encouraged weight loss and lifestyle changes encouraged, nutrition consulted for education and teaching. Encouraged follow-up additionally with PCP to continue follow incidentally noted adrenal findings on CT scan. DAY OF DISCHARGE PROGRESS NOTE: Subjective: Patient without acute event overnight per self and nursing report. She noted pain had improved until AM plain lumbar films requiring her to lay flat on the firm radiology table with discomfort following but had been notably improving. Patient pending epidural injection per Dr. Naylor. BP improved, increased norvasc dose. Patient denies fever, chills, nausea, emesis, abdominal pain, chest pain or dyspnea. Patient agreeable to discharge to home with outpatient therapies per PT, OT recommendation following Dr. Naylor injection. Encouraged continued walker usage which she has at home and uses baseline. Patient will be discharged with follow-up with primary care physician within 3- 5 days in addition to Dr. Naylor per his discretion or within 1 week. Objective: T 98.7, heart rate 88, BP 161/73, respiratory rate 18, 97% on room air. Physical Examination: General: awake, alert, oriented x 3 and cooperative, laying in bed, in no apparent distress, notes pain increased since laying on radiology table but had been improving notably. Skin: normal color, turgor, no icterus, cyanosis. HEENT: AT/NC, EOMI, PERRLA, MMM. Lungs: CTA bilaterally, moderate effort, mild decrease BL bases, no rales, ronchi or wheezing. Heart: Regular rate and rhythm; no gallop, rub audible. Abdomen: soft, obese, NTTP, ND, normal BS. Extremities: no cyanosis, clubbing, mild ankle edema, lumbar discomfort with radiculopathy to right lower extremity, acute on chronic, + SLR. Neurological: patient awake, alert, oriented x 3; cognitive function intact; pupils equally reactive to light and accomodation; cranial nerves II-XII grossly normal, moving all 4 extremities limited secondary to acute presentation , no focal deficits, strength improving, moderately globally decreased. Psychiatric: affect appears normal, no acute evidence of depressive or anxiety feelings. Assessment and Plan: Please see hospital summary above. Discharge Activity: Use Walker, - - Defer any aggressive activities until re- assessment per your primary care physician and Dr. Naylor. May resume sexual activity in: - - Defer until improved and cleared per Dr. Naylor and your primary care physician. Weight Bearing Status: Weight bearing as tolerated Call your doctor if you observe: Fever of 101 or Higher, Inability to urinate, Inability to have a bowel movement, Shortness of breath, Dizziness, Fainting spells, Chest pain, Uncontrolled pain Home Medications: Medications to take at Discharge ascorbic acid (vitamin C) 500 mg tablet 500 mg PO QDAY 08/18/17 aspirin 81 mg chewable tablet 1 tab PO DAILY 08/18/17 calcium carbonate 600 mg calcium (1,500 mg) tablet 600 mg PO BID tab 08/18/17 cholecalciferol (vitamin D3) 2,000 unit capsule 2,000 unit PO QDAY 08/18/17 hydrochlorothiazide 25 mg tablet 25 mg PO QAM #90 tab 08/18/17 insulin glargine (U-100) 100 unit/mL (3 mL) subcutaneous pen 60 unit SC QHS ml 08/18/17 insulin glulisine (U-100) 100 unit/mL subcutaneous pen 10 unit SC TID ml labetalol 100 mg tablet 100 mg PO BID 08/18/17 lisinopril 40 mg tablet 40 mg PO QDAY 08/18/17 multivitamin tablet 1 tab PO QAM 08/18/17 simvastatin 40 mg tablet 40 mg PO QHS 08/18/17 vitamin B12 500 mcg-folic acid 400 mcg tablet 1 tab PO QDAY 08/18/17 Amlodipine [Norvasc] 10 mg PO DAILY #30 tab 11/01/17 Gabapentin [Neurontin] 100 mg PO TIDCM #90 cap 11/01/17 Oxycodone [Oxyir] 5 - 10 mg PO Q4H PRN PRN 2 Days #20 tablet 11/01/17 Senna/Docusate Sodium [Senokot-S] 2 tab PO BID #60 tab 11/01/17 hydrocodone 5 mg-acetaminophen 325 mg tablet 1 tab PO .twice daily PRN #60 tab 11/01/17 Following Prescrptions Were Given to Patient: Oxycodone [Oxyir] 5 - 10 mg PO Q4H PRN PRN 2 Days #20 tablet PRN Reason: Mod-Severe Pain (-02/22) Amlodipine [Norvasc] 10 mg PO DAILY #30 tab Senna/Docusate Sodium [Senokot-S] 2 tab PO BID #60 tab Gabapentin [Neurontin] 100 mg PO TIDCM #90 cap Primary Care Physician: Ho Landeros DO [Primary Care Provider] - Please follow up with your Primary Care Physician in: Follow-up within 3-5 days to review admission, changes. Please Follow Up With: Cindy Naylor MD When: As directed or within 1 week. Please Follow Up With: Outpatient Therapies When: Rx given for outpatient physical/occupation therapy, arrange. Patient Instructions: Controlling High Blood Pressure, Low-Salt Choices, What Is High Blood Pressure?, What is Lumbar Epidural Injection?, Lumbar Epidural Injection: Your Procedure, Lumbar Epidural Injection: Recovery at Home, Discharge Instructions for High Blood Pressure (Hypertension) Disposition: Home Minutes spent on discharge:: 35 Patient Condition:: Fair Medical Necessity - Tobacco Use Smoking Status: Former smoker Tobacco Use: Non-smoker Meaningful Use Info Meaningful Use Diagnoses (Choose all that apply): None applicable Code Visit Inpatient E&M: 60203 Disch Hosp
--- NOTE | 2017-11-01 11:58 | DCINST_ITS ---
- Discharge Diagnoses Current Active Problems: Current Active and Chronic Problems (Last Reviewed 09/01/17 @ 13:56 by Ho Landeros DO) (1) Acute on Chronic Intractable Back Pain w/ Worsened RLE Radiculopathy/Sciatic (2) Hypertensive Urgency (3) Hyperlipidemia (4) Diabetes mellitus type II (5) Obesity You will use the following diet at home:: Calorie/Carbohydrate Controlled ( specify 1200, 1400, etc), Cardiac Your food should be the consistency of: Regular Your liquids should be the consistency of: Regular/Thin Discharge Activity: Use Walker, - - Defer any aggressive activities until re- assessment per your primary care physician and Dr. Naylor. May resume sexual activity in: - - Defer until improved and cleared per Dr. Naylor and your primary care physician. Weight Bearing Status: Weight bearing as tolerated Call your doctor if you observe: Fever of 101 or Higher, Inability to urinate, Inability to have a bowel movement, Shortness of breath, Dizziness, Fainting spells, Chest pain, Uncontrolled pain Instructions: What is Lumbar Epidural Injection?, Lumbar Epidural Injection: Your Procedure, Lumbar Epidural Injection: Recovery at Home, Controlling High Blood Pressure, Low-Salt Choices, What Is High Blood Pressure?, Discharge Instructions for High Blood Pressure (Hypertension) Additional Instructions: Please continue to trend your blood pressure. Upon evaluation per your primary care physician you may need additional adjustments. If you continue to have elevated blood pressures we recommend you discuss Nephrology evaluation outpatient with your primary care physician. Allergies/Adverse Reactions: Allergies No Known Allergies Allergy (Unverified 10/29/17 06:47) Medications to take at Discharge ascorbic acid (vitamin C) 500 mg tablet 500 mg PO QDAY 08/18/17 aspirin 81 mg chewable tablet 1 tab PO DAILY 08/18/17 calcium carbonate 600 mg calcium (1,500 mg) tablet 600 mg PO BID tab 08/18/17 cholecalciferol (vitamin D3) 2,000 unit capsule 2,000 unit PO QDAY 08/18/17 hydrochlorothiazide 25 mg tablet 25 mg PO QAM #90 tab 08/18/17 insulin glargine (U-100) 100 unit/mL (3 mL) subcutaneous pen 60 unit SC QHS ml 08/18/17 insulin glulisine (U-100) 100 unit/mL subcutaneous pen 10 unit SC TID ml labetalol 100 mg tablet 100 mg PO BID 08/18/17 lisinopril 40 mg tablet 40 mg PO QDAY 08/18/17 multivitamin tablet 1 tab PO QAM 08/18/17 simvastatin 40 mg tablet 40 mg PO QHS 08/18/17 vitamin B12 500 mcg-folic acid 400 mcg tablet 1 tab PO QDAY 08/18/17 Amlodipine [Norvasc] 10 mg PO DAILY #30 tab 11/01/17 Gabapentin [Neurontin] 100 mg PO TIDCM #90 cap 11/01/17 Oxycodone [Oxyir] 5 - 10 mg PO Q4H PRN PRN 2 Days #20 tablet 11/01/17 Senna/Docusate Sodium [Senokot-S] 2 tab PO BID #60 tab 11/01/17 hydrocodone 5 mg-acetaminophen 325 mg tablet 1 tab PO .twice daily PRN #60 tab 11/01/17 The following prescriptions were given: Oxycodone [Oxyir] 5 - 10 mg PO Q4H PRN PRN 2 Days #20 tablet PRN Reason: Mod-Severe Pain (-02/22) Amlodipine [Norvasc] 10 mg PO DAILY #30 tab Senna/Docusate Sodium [Senokot-S] 2 tab PO BID #60 tab Gabapentin [Neurontin] 100 mg PO TIDCM #90 cap Primary Care Physician: Ho Landeros DO [Primary Care Provider] - Please follow up with your Primary Care Physician in: Follow-up within 3-5 days to review admission, changes. Please Follow Up With: Cindy Naylor MD When: As directed or within 1 week. Please Follow Up With: Outpatient Therapies When: Rx given for outpatient physical/occupation therapy, arrange. Proposed Discharge Date: 11/01/17
[2017-11-01 12:05] LABS: Bedside Glucose 230 mg/dL (70-110)
--- NOTE | 2017-11-01 12:27 | NURSING ---
Called report to AC at this time.
--- NOTE | 2017-11-01 13:59 | RAD_ITS ---
STUDY: X-RAY - LUMBAR SPINE REASON FOR EXAM: Female, 62 years old. Transforaminal block L4-S1. TECHNIQUE: 2 frontal fluoroscopic images are submitted for interpretation obtained during the procedure. Fluoroscopy time was not recorded. Please see report of procedure for additional details. COMPARISON: X-ray lumbar spine 11/01/2017. FINDINGS: Imaging depicts needle insertion to the left side of L4-L5, in appropriate position for transforaminal block, with injection of IV dye. The 2nd image depicts placement of the needle at the expected location of the foramen on the left at L5-S1. RAD/Lumbar Spine 2 or 3 Views IMPRESSION: Left L4-L5 and L5-S1 needle positioning for transforaminal block. Correlate with operative report. Electronically Signed: Lenny Tate, at 15:41 EDT Tel , Service support ,
[2017-11-01] MEDS: Triamcinolone Acetonide 40 MG/ML Vial (15:06)
[2017-11-01 17:01] LABS: Bedside Glucose 243 mg/dL (70-110)
== END 2017-11-01 17:30 | disposition home or self-care (01) | DRG 552 ==
LOC: ED 07:23 → PCU 10:54
PROVIDERS: Anesthesiology Pain Medicine; Admitting Provider Internal Medicine; Emergency Provider Emergency Medicine; Family Provider Family Medicine; PCP Family Medicine; Visit Provider Family Medicine
PROC: 3E0S3BZ Introduction of Anesthetic Agent into Epidural Space, Percutaneous Approach (ICD-10-PCS; principal; 2017-11-01 08:40)
DX: M51.16 Intervertebral disc disorders with radiculopathy, lumbar region (principal); M43.16 Spondylolisthesis, lumbar region; I10 Essential (primary) hypertension; E78.5 Hyperlipidemia, unspecified; Z87.891 Personal history of nicotine dependence; Z79.4 Long term (current) use of insulin; Z79.899 Other long term (current) drug therapy; I16.0 Hypertensive urgency; E11.65 Type 2 diabetes mellitus with hyperglycemia; E66.9 Obesity, unspecified; E27.9 Disorder of adrenal gland, unspecified; G62.9 Polyneuropathy, unspecified; I34.1 Nonrheumatic mitral (valve) prolapse; G89.29 Other chronic pain; Z68.39 Body mass index [BMI] 39.0-39.9, adult
CPT/HCPCS: 36415; 64483; 71275; 72100; 72110; 72114; 72148; 74175; 80048; 82962; 84484; 85025; 85610; 85730; 93005; 97110; 97162; 97166; 97802; 99285; J7040; Q9967; A4216; J2405

== ENCOUNTER → 2017-11-03 13:59 | Outpatient (CLI) | payer OTHER, SELFPAY ==
[2017-11-03 16:21] LABS: Anion Gap 7 (5-15); BUN 33 mg/dL (7-18); Calcium,Total 9.4 mg/dL (8.5-10.1); Chloride 103 mmol/L (98-107); Creatinine, Serum 1.03 mg/dL (0.55-1.02); EST Glomerular Filtration Rate 58 mL/min (>60); Est Glom Filt Rate - Afr Amer 70 mL/min (>60); Glucose 219 mg/dL (74-106); Sodium Level 137 mmol/L (136-145)
== END ==
PROVIDERS: Family Provider Family Medicine; PCP Family Medicine; Visit Provider Nurse Practitioner Family
DX: I10 Essential (primary) hypertension (principal)
CPT/HCPCS: 36415; 80048

== ENCOUNTER → 2017-11-03 15:54 | Outpatient (CLI) | payer OTHER, SELFPAY ==
--- NOTE | 2017-11-03 15:56 | VDLE_ITS ---
Reason For Study: LEG PAIN AND SWELLING RIGHT LEFT GSV is normal. CFV is compressible, spontaneous, phasic, CFV is compressible, spontaneous, phasic, competent, and demonstrates normal competent and demonstrates normal augmentation. augmentation. FV is compressible, spontaneous, phasic, competent and demonstrates normal augmentation. POP V is compressible, spontaneous, phasic, competent and demonstrates normal augmentation. T/P Trunk is compressible. PTV is compressible. RT PerV is compressible. Procedure Exam performed in department. A preliminary report was called and/or faxed to Dr. Landeros. Interpretation Summary Deep veins of the right lower extremity are patent and compressible segmentally. There is no evidence of right lower extremity deep vein thrombosis. Valvular competence appears intact within the proximal deep venous system on the right . The right greater saphenous vein appears patent and compressible segmentally. Ordering Physician: Ho Landeros Referring Physician: Ho Landeros Performed By: Iza Xie RVT
== END ==
PROVIDERS: Family Provider Family Medicine; PCP Family Medicine; Visit Provider Family Medicine
DX: M79.604 Pain in right leg (principal)
CPT/HCPCS: 93971

== ENCOUNTER → 2017-12-27 14:08 | Outpatient (CLI) | payer OTHER, SELFPAY ==
[2017-12-27 16:13] LABS: Anion Gap 12 (5-15); BUN 31 mg/dL (7-18); BUN/Creat Ratio 23.1 RATIO (10-20); Calcium,Total 9.6 mg/dL (8.5-10.1); Chloride 109 mmol/L (98-107); Creatinine, Serum 1.34 mg/dL (0.55-1.02); EST Glomerular Filtration Rate 43 mL/min (>60); Est Glom Filt Rate - Afr Amer 52 mL/min (>60); Glucose 63 mg/dL (74-106); Potassium 4.8 mmol/L (3.5-5.1); Sodium Level 144 mmol/L (136-145)
[2017-12-27 16:15] LABS: Hemoglobin A1c 8.5 % (4.2-6.3)
[2017-12-27 16:26] LABS: Microalbumin,Random Urine 27.1 mg/L (NO RANGE EST.); Microalbumin:Creatinine Ratio 25.1 mg/g CRE (<30 mg/g CRE)
== END ==
PROVIDERS: Family Provider Family Medicine; PCP Family Medicine; Visit Provider Nurse Practitioner Family
DX: I10 Essential (primary) hypertension (principal); E11.9 Type 2 diabetes mellitus without complications
CPT/HCPCS: 36415; 80048; 82043; 82570; 83036

== ENCOUNTER → 2018-01-04 14:00 | Outpatient (CLI) | payer OTHER, SELFPAY ==
[2018-01-04 15:46] LABS: Amphetamine Urine VISTA NEGATIVE (<1000 ng/mL); Barbiturate Urine VISTA NEGATIVE (< 200 ng/mL); Benzodiazepine Urine VISTA NEGATIVE (< 200 ng/mL); Cocaine Urine VISTA NEGATIVE (< 300 ng/mL); Ecstacy Urine VISTA NEGATIVE (< 500 ng/mL); Methadone Urine VISTA NEGATIVE (< 300 ng/mL); PCP Urine VISTA NEGATIVE (< 25 ng/mL); THC Urine VISTA NEGATIVE (< 50 ng/mL); Vista UDS pH Range 7
== END ==
PROVIDERS: Family Provider Family Medicine; PCP Family Medicine; Visit Provider Anesthesiology Pain Medicine
DX: F11.20 Opioid dependence, uncomplicated (principal)
CPT/HCPCS: 80307

== ENCOUNTER → 2018-01-10 10:17 | Outpatient (CLI) | payer OTHER, SELFPAY ==
[2018-01-10 12:24] LABS: Anion Gap 9 (5-15); BUN 31 mg/dL (7-18); BUN/Creat Ratio 30.7 RATIO (10-20); Chloride 105 mmol/L (98-107); Creatinine, Serum 1.01 mg/dL (0.55-1.02); EST Glomerular Filtration Rate 59 mL/min (>60); Est Glom Filt Rate - Afr Amer 71 mL/min (>60); Glucose 117 mg/dL (74-106); Sodium Level 140 mmol/L (136-145)
== END ==
PROVIDERS: Nurse Practitioner Family; Family Provider Family Medicine; PCP Family Medicine; Visit Provider Family Medicine
DX: I10 Essential (primary) hypertension (principal)
CPT/HCPCS: 36415; 80048

== ENCOUNTER → 2018-02-02 16:06 | Outpatient (CLI) | payer OTHER, SELFPAY ==
--- NOTE | 2018-02-02 16:07 | US_ITS ---
STUDY: SUPERFICIAL ULTRASOUND - RIGHT CALF SWELLING REASON FOR EXAM: Female, 62 years old. Right calf swelling for months, with pain. TECHNIQUE: A superficial ultrasound was performed with real-time and static hernandez-scale imaging. COMPARISON: None. FINDINGS: The entire region of the right calf including the focal area of suspected swelling was scanned under ultrasound grayscale and color Doppler imaging. Normal underlying vascular structures. No visualized DVT. No soft tissue mass, fluid collection or edema. US/Ext Non Vasc Limited/Soft Tiss IMPRESSION: No acute sonographic abnormality. Electronically Signed: Lenny Tate, at 17:47 EDT Tel , Service support ,
== END ==
PROVIDERS: Family Provider Family Medicine; PCP Family Medicine; Visit Provider Internal Medicine
DX: M79.604 Pain in right leg (principal); R22.41 Localized swelling, mass and lump, right lower limb
CPT/HCPCS: 76882

== ENCOUNTER → 2018-02-07 15:16 | Outpatient (CLI) | payer OTHER, SELFPAY ==
--- NOTE | 2018-02-07 15:17 | RAD_ITS ---
STUDY: X-RAY - LUMBAR SPINE REASON FOR EXAM: Female, 62 years old. Lower back pain. TECHNIQUE: 4 view(s) of the lumbar spine were obtained. COMPARISON: None FINDINGS: Normal lumbar lordosis. There is no substantial scoliosis. There is anterolisthesis of L4 and L5 of 1.1 cm. No change in alignment with flexion or extension. There is multilevel endplate spondylosis of the lumbar vertebrae. There is multi-level degenerative disc disease with multi-level disc space narrowing. There is no evidence of acute fracture or loss of vertebral axial height. There is atherosclerotic calcification of the abdominal aorta without a demonstrated aneurysm. RAD/L/S Spine Min 4 Views IMPRESSION: Degenerative changes of the lumbar spine. There is anterolisthesis of L4 and L5 without prevertebral instability. Electronically Signed: Dixon Chavez DO at 22:18 EDT Tel [phone], Service support ,
== END ==
PROVIDERS: Family Provider Family Medicine; PCP Family Medicine; Referring Provider Orthopaedic Surgery; Visit Provider Orthopaedic Surgery
DX: M54.5 Low back pain (principal)
CPT/HCPCS: 72110

== ENCOUNTER → 2018-07-18 14:43 | Outpatient (CLI) | payer OTHER, SELFPAY ==
[2018-06-01 14:07] VITALS: BMI 37.4
[2018-07-18 16:53] LABS: Albumin, Serum 4.2 g/dL (3.2-5.0); BUN 17 mg/dL (7-18); BUN/Creat Ratio 16.2 RATIO (10-20); Calcium,Total 9.9 mg/dL (8.5-10.1); Chloride 104 mmol/L (98-107); Creatinine, Serum 1.05 mg/dL (0.55-1.02); EST Glomerular Filtration Rate 56 mL/min (>60); Est Glom Filt Rate - Afr Amer 68 mL/min (>60); Glucose 220 mg/dL (74-106); Phosphorus 3.2 mg/dL (2.5-4.9); Potassium 4.2 mmol/L (3.5-5.1); Sodium Level 141 mmol/L (136-145)
[2018-07-18 17:12] LABS: Microalbumin:Creatinine Ratio 18.4 mg/g CRE (<30 mg/g CRE)
== END ==
PROVIDERS: Family Provider Family Medicine; PCP Family Medicine; Visit Provider Internal Medicine Nephrology
DX: N18.3 Chronic kidney disease, stage 3 (moderate) (principal); E11.9 Type 2 diabetes mellitus without complications
CPT/HCPCS: 36415; 80069; 82043; 82570

== ENCOUNTER → 2018-08-25 08:16 | Outpatient (CLI) | payer OTHER, SELFPAY ==
[2018-06-01 14:07] VITALS: BMI 37.4
[2018-08-25 12:18] LABS: ALB/GLOB Ratio 1.3 RATIO (0.9-2.4); AST(SGOT) 17 U/L (15-37); Alanine Aminotransfer ALT/SGPT 33 U/L (13-56); Albumin, Serum 3.9 g/dL (3.2-5.0); Alkaline Phosphatase 84 U/L (45-117); Anion Gap 6 (5-15); BUN 17 mg/dL (7-18); BUN/Creat Ratio 18.2 RATIO (10-20); Calcium,Total 9.4 mg/dL (8.5-10.1); Chloride 107 mmol/L (98-107); Cholesterol 263 mg/dL (200); Creatinine, Serum 0.93 mg/dL (0.55-1.02); EST Glomerular Filtration Rate 64 mL/min (>60); Est Glom Filt Rate - Afr Amer 78 mL/min (>60); Globulin 3.1 g/dL (2.2-4.2); Glucose 147 mg/dL (74-106); High Density Lipoprotein 45 mg/dL; Phosphorus 3.3 mg/dL (2.5-4.9); Potassium 5.1 mmol/L (3.5-5.1); Sodium Level 141 mmol/L (136-145); Triglycerides 246 mg/dL; Very Low Density Lipoprotein 49 mg/dL (5-40)
== END ==
PROVIDERS: Family Provider Family Medicine; PCP Family Medicine; Visit Provider Family Medicine
DX: E11.8 Type 2 diabetes mellitus with unspecified complications (principal); N17.9 Acute kidney failure, unspecified
CPT/HCPCS: 36415; 80053; 80061; 84100

== ENCOUNTER → 2018-09-06 15:02 | Outpatient (CLI) | payer OTHER, SELFPAY ==
[2018-09-05 14:25] VITALS: BMI 37.4
[2018-09-06 17:54] LABS: Amphetamine Urine VISTA NEGATIVE (<1000 ng/mL); Barbiturate Urine VISTA NEGATIVE (< 200 ng/mL); Benzodiazepine Urine VISTA NEGATIVE (< 200 ng/mL); Cocaine Urine VISTA NEGATIVE (< 300 ng/mL); Ecstacy Urine VISTA NEGATIVE (< 500 ng/mL); Methadone Urine VISTA NEGATIVE (< 300 ng/mL); PCP Urine VISTA NEGATIVE (< 25 ng/mL); THC Urine VISTA NEGATIVE (< 50 ng/mL); Vista UDS pH Range 5
== END ==
PROVIDERS: Family Provider Family Medicine; PCP Family Medicine; Referring Provider Anesthesiology Pain Medicine; Visit Provider Anesthesiology Pain Medicine
DX: F11.20 Opioid dependence, uncomplicated (principal)
CPT/HCPCS: 80307

== ENCOUNTER → 2019-11-12 13:02 | Outpatient (CLI) | payer MEDICARE, SELFPAY ==
[2019-09-05 13:13] VITALS: BMI 37.4
[2019-11-12 14:14] LABS: Amphetamine Urine VISTA NEGATIVE (<1000 ng/mL); Barbiturate Urine VISTA NEGATIVE (< 200 ng/mL); Benzodiazepine Urine VISTA NEGATIVE (< 200 ng/mL); Cocaine Urine VISTA NEGATIVE (< 300 ng/mL); Ecstacy Urine VISTA POSITIVE (< 500 ng/mL); Methadone Urine VISTA NEGATIVE (< 300 ng/mL); PCP Urine VISTA NEGATIVE (< 25 ng/mL); THC Urine VISTA NEGATIVE (< 50 ng/mL); Vista UDS pH Range 5
== END ==
PROVIDERS: PCP Family Medicine; Referring Provider Anesthesiology Pain Medicine; Visit Provider Anesthesiology Pain Medicine
DX: F11.20 Opioid dependence, uncomplicated (principal)
CPT/HCPCS: 80307

== ENCOUNTER → 2019-11-27 11:13 | Outpatient (CLI) | payer MEDICARE, SELFPAY ==
[2019-11-13 15:29] VITALS: BMI 37.4
[2019-11-27 12:42] LABS: Hemoglobin A1c 13.3 % (3.8-5.6)
[2019-11-27 13:11] LABS: Microalbumin,Random Urine 69.4 mg/L (NO RANGE EST.)
[2019-11-27 13:22] LABS: ALB/GLOB Ratio 1.3 RATIO (0.9-2.4); AST(SGOT) 17 U/L (15-37); Alanine Aminotransfer ALT/SGPT 33 U/L (13-56); Albumin, Serum 3.9 g/dL (3.2-5.0); Alkaline Phosphatase 90 U/L (45-117); Anion Gap 9 (5-15); BUN 24 mg/dL (7-18); BUN/Creat Ratio 19.2 RATIO (10-20); Calcium,Total 9.7 mg/dL (8.5-10.1); Chloride 96 mmol/L (98-107); Cholesterol 194 mg/dL (200); Creatinine, Serum 1.25 mg/dL (0.55-1.02); EST Glomerular Filtration Rate 46 mL/min (>60); Est Glom Filt Rate - Afr Amer 55 mL/min (>60); Globulin 2.9 g/dL (2.2-4.2); Glucose 543 mg/dL (74-106); High Density Lipoprotein 40 mg/dL; Potassium 4.5 mmol/L (3.5-5.1); Protein, Total 6.8 g/dL (6.4-8.2); Sodium Level 132 mmol/L (136-145); Triglycerides 422 mg/dL
== END ==
PROVIDERS: PCP Family Medicine; Referring Provider Nurse Practitioner Family; Visit Provider Nurse Practitioner Family
DX: E78.5 Hyperlipidemia, unspecified (principal); N18.2 Chronic kidney disease, stage 2 (mild); E11.9 Type 2 diabetes mellitus without complications; I10 Essential (primary) hypertension
CPT/HCPCS: 36415; 80053; 80061; 82043; 82570; 83036

== ENCOUNTER → 2020-01-29 11:17 | Outpatient (CLI) | payer MEDICARE, SELFPAY ==
[2020-01-09 10:55] VITALS: BMI 37.4
[2020-01-29 12:51] LABS: Hemoglobin A1c 11.8 % (3.8-5.6)
== END ==
PROVIDERS: PCP Family Medicine; Visit Provider Family Medicine
DX: E11.8 Type 2 diabetes mellitus with unspecified complications (principal); Z79.4 Long term (current) use of insulin
CPT/HCPCS: 36415; 83036

== ENCOUNTER 2020-02-26 08:04 | Day surgery (SDC) | payer MEDICARE, SELFPAY ==
[2020-01-09 10:55] VITALS: BMI 37.4
[2020-02-06 11:33] VITALS: BMI 38.2
--- NOTE | 2020-02-25 21:05 | PCM.HP.BLA ---
History and Physical Date of Admission: 02/26/20 HISTORY OF PRESENT ILLNESS 64 year old woman presents for evaluation for TBSE. She has concerns about a lesion right lower lateral cheek by ear lobe that has increased in size over the last several months and has developed irregular borders and has become more raised in configuration. She denies trauma. She denies fever. She denies drainage. She denies recent infection. She presents at this time for further evaluation and treatment. PAST MEDICAL HISTORY Neoplasm of skin of right cheek Arthritis Mitral valve prolapse Neuropathy Chronic pain Hyperlipemia Hypertension Type 2 diabetes mellitus Back pain Kidney failure Knee pain Ruptured disk Skin cancer Vision problems PAST SURGICAL HISTORY right heart catheterization ALLERGIES No Known Allergies MEDICATIONS calcium carbonate multivitamin labetalol oxycodone myristate rosuvastatin glipizide insulin glargine amlodipine hydrochlorothiazide lisinopril pregabalin insulin lispro FAMILY HISTORY Mother - Colon cancer, Heart disease, Hypertension Father - Brain tumor, CVA (cerebral vascular accident) Brother - CVA (cerebral vascular accident), Diabetes Grandmother - Parkinsons Other - Alcoholism, Angina at rest, Arthritis, Cancer, FH: defects, Lung cancer, Seizures SOCIAL HISTORY Smoking Status: Former smoker how long ago did patient quit smokin alcohol intake: former substance use type: does not use REVIEW OF SYSTEMS General - Denies fever, fatigue, and weight loss. Eyes - Denies cataracts and glaucoma. ENT - Denies nasal congestion and sore throat. Endocrine - Has excessive thirst and urination. Has heat and cold intolerance. Has diabetes mellitus, poorly controlled, with a HgbA1c of 13. Skin - Denies skin cancer. Has an enlarging lesion right lower lateral cheek by ear lobe that is clinically consistent with carcinoma. Musculoskeletal - Has joint pain, joint stiffness, weakness of muscles and joints, back pain, and arthritis. Neuro - Denies headaches. Cardiovascular - Denies chest pain, fatigue, and shortness of breath with exertion. Psych - Denies anxiety and depression. Respiratory - Denies chronic cough and shortness of breath. Patient is a former smoker. Gastrointestinal - Denies nausea, vomiting, diarrhea. Has constipation. Hematologic - Denies abnormal bruising and bleeding. Genitourinary - Denies hematuria. Has urinary frequency. Has incontinence. PHYSICAL EXAMINATION General - Alert and Oriented. HEENT - PERRL. EOMI. Throat is clear. On the right lower lateral cheek by ear lobe is an erythematous lesion that measures 0.8 cm. Has irregular borders. It is raised in configuration. No ulceration. Lesion is nontender. No other suspicious lesions noted. Neck - Supple and nontender. No cervical adenopathy. No suspicious lesions noted. Lungs - Clear to auscultation. Heart - Regular rate and rhythm. Abdomen - Soft and nondistended. Extremities - FROM. No axillary adenopathy. Radial pulses are palpable. No suspicious lesions noted. Neuro - CN II-XII grossly intact. Psych - Normal mood and affect. ASSESSMENT 1. 8 mm erythematous lesion right lower lateral cheek by ear lobe, clinically consistent with carcinoma. 2. Diabetes mellitus, poorly controlled, with a HgbA1c of 13. 3. Former smoker. PLAN Patient's enlarging lesion right lower lateral cheek by ear lobe is clinically consistent with a basal cell carcinoma. Recommend excision of this lesion and send it to Pathology for analysis to rule out carcinoma. If carcinoma is present, then further excision will be done with a margin based on the pathology with skin flap reconstruction. With the lesion located inferior to the ear lobe, a periauricular cheek advancement flap can be used. However her diabetes is poorly controlled with a HgbA1c of 13. For elective reconstruction with a skin flap or a skin graft, the HgbA1c needs to be less than 8. The skin cancer needs to be excised despite the high HgbA1c. But the reconstruction can be delayed until the HgbA1c improves. So will leave the wound open after the excision of the carcinoma and proceed with daily Silver dressing changes until healed. Once the HgbA1c decreases down to 8, can reassess the healed scar to see if any scar excision revision needs to be done. She states she is having the HgbA1c repeated next month after her diabetes medications were changed at her last PCP visit. If dramatic improvement is noted over the next 1-2 months, then can proceed with the reconstruction at the same time as the excision of the carcinoma. However the patient doesn't want to wait that long to have her probable cancer excised. She voices understanding that the wound will be left open after the surgery. Will instruct her family on how to do the Silver dressing changes. If they are not comfortable, then she may come to the office 3 times per week after the surgery and we will do the Silver dressing changes. Patient was informed of the risks and complications of the procedure including alternatives to surgery. These were discussed with the patient personally. Patient voices understanding and wishes to proceed. Some of the risks and complications were included in a form from the [employer] [employer]. Surgery will be done on an outpatient basis under local anesthesia and IV sedation. We discussed the current risks associated with COVID-19. While it is understood that there is a community spread of COVID-19, the risk of yana COVID-19 while at [facility] ([facility]) is very low; however, the risk cannot be completely mitigated because of the community spread of the disease. We discussed in detail the risk of exposure to and/or potential harm posed by the COVID-19 virus with having a surgery/procedure at this time versus the risk of delaying the surgery/procedure. It is not possible to know either the risk of delaying the surgery or procedure or chance of getting an infection with perfect accuracy, but a joint decision was made to proceed at this time with the scheduled surgery/procedure as indicated on the consent form. Patient was notified that we will need to comply with any screening or testing [facility] wishes to perform or that surgery may be delayed for any positive results. Discussed with the patient that I was tested for COVID-19 on 11/15/19 which was negative and on 11/29/19 which was negative and on 12/13/19 which was negative and on 12/27/19 which was negative and on 01/10/20 which was negative and on 01/31/20 which was negative and on 02/21/20 which was negative. My testing regimen at this time is to be COVID-19 tested every 2 weeks or so. Procedure Criteria Procedure Type: Elective COVID Risk Discussion: The surgeon/proceduralist and patient have discussed in detail the risk of exposure to and/or potential harm posed by the COVID-19 virus with having a surgery/procedure at this time versus the risk of delaying the surgery/procedure. It is not possible to know either the risk of delaying the surgery or procedure or chance of getting an infection with perfect accuracy, but a joint decision was made between the patient and the surgeon/proceduralist to proceed at this time with the scheduled surgery/procedure as indicated on the consent form.
[2020-02-26] VITALS (7 sets, daily range): BP systolic 146–180; BP diastolic 70–90; PULSE 80–89; RESP 12–16; TEMP 36.2–36.5; O2SAT 96–99; BMI 40.0
--- NOTE | 2020-02-26 | LES_PTH ---
PATIENT: MICHELE OBRIEN LOC: [facility] – [place] U#:[id number] AGE/SX: 64/F ROOM: RE02/26/[address]: Dr. Dez Hung MD : 1955 BED: DIS: 02/26/2020 SPEC #: [id number] RECD: 02/26/20 10:37 STATUS: DUNG REFady #: [id number] FORREST: 02/26/20 00:[address]: Dez Hung DEPT: SURGICAL PATHOLOGY RECD BY: Delmi Hutchinson ENTERED: 02/26/20 11:24 SP TYPE: Lesion OTHR DR: Dr. Ho Landeros, DO Tissues: A - Skin of face, NOS B - Skin of face, NOS Procedures: Frozen Section (charge) Surgery Specimen Level IV HEADER OPERATION: Excision lesion lateral lower cheek by earlobe, frozen section PRE-OP DIAGNOSIS: 8 mm erythematous lesion right lower lateral cheek by earlobe TISSUE SUBMITTED: A - Lesion right lower lateral cheek by earlobe, FS, B - Basal cell carcinoma right lateral cheek by earlobe, suture at 12 o'clock FROZEN SECTION DIAGNOSIS A. Skin lesion right lower cheek, biopsy: Basal cell carcinoma. AM:josias 02/26/20 MICROSCOPIC DIAGNOSIS A. Skin lesion of right lower cheek, biopsy: Basal cell carcinoma, nodular ulcerated, incompletely excised. B. Skin lesion of lateral cheek by earlobe, excision: Ulcer consistent with recent biopsy: Solar elastosis. No evidence of malignancy. AM:josias 02/28/20 MICROSCOPIC DESCRIPTION Slides are reviewed. GROSS DESCRIPTION A - Received fresh for frozen section consultation labeled with the patient's name is a specimen designated lesion right lower cheek. The specimen consists of an irregular fragment of reddish-rodrigues soft tissue measuring 1 x 1 x 0.2 cm. The specimen is submitted in its entirety in one block for frozen section consultation. / AM:josias 02/26/20 B - Received in fixative is one container labeled with the patient's name and designated basal cell carcinoma right lateral cheek by earlobe, suture at 12 o'clock. The specimen consists of a round piece of rodrigues-white skin measuring 1.5 x 1.4 cm and up to 0.3 cm in thickness. The specimen is oriented by a suture at 12 o'clock position. The specimen is inked as follows: 12 to 3 o'clock - blue, 3 to 6 o'clock - green, 6 to 9 o'clock - yellow and 9 to 12 o'clock - black. The skin surface shows an area of ulceration measuring 0.8 cm in diameter. The specimen is serially sectioned and submitted entirely in one cassette. / GAVIN:josias 02/27/20 TC:0 CPT: 99921 x2, 17240
[2020-02-26 09:21] LABS: Bedside Glucose 66 mg/dL (70-110)
[2020-02-26] MEDS: Lactated Ringers 1,000 ML 100 ML IV (09:35)
--- NOTE | 2020-02-26 11:06 | OP.PCM_ITS ---
Report of Operation Date of Procedure: 02/26/20 Pre-Operative Diagnosis: 1. 8 mm erythematous lesion right lower lateral cheek by ear lobe, clinically consistent with carcinoma. 2. Diabetes mellitus, poorly controlled, with a HgbA1c of 13. 3. Former smoker. Post-Operative Diagnosis: 1. 8 mm basal cell carcinoma right lower lateral cheek by ear lobe. 2. Open surgical basal cell carcinoma wound right lower lateral cheek by ear lobe. 3. Diabetes mellitus, poorly controlled, with a HgbA1c of 13. 4. Former smoker. Surgery/Procedure Performed:: Excision 8 mm basal cell carcinoma right lower lateral cheek by ear lobe. Description of Surgical Findings:: 64 year old woman presents for evaluation for TBSE. She has concerns about a lesion right lower lateral cheek by ear lobe that has increased in size over the last several months and has developed irregular borders and has become more raised in configuration. She denies trauma. She denies fever. She denies drainage. She denies recent infection. Patient was informed of the risks and complications of the procedure including alternatives to surgery. These were discussed with the patient personally. Patient voices understanding and wishes to proceed. Some of the risks and complications were included in a form from the [employer]. Frozen section right lower lateral cheek by earlobe - basal cell carcinoma. Size of defect right lower lateral cheek by earlobe - 1.4 x 1.4 cm. 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 Specimen's removed: 1. Erythematous lesion right lower lateral cheek by ear lobe to Pathology as a frozen section. 2. Basal cell carcinoma right lower lateral cheek by ear lobe to Pathology. Drains: None. Estimated Blood Loss (mL): 5 ml. Description of Procedure: Patient was taken to OR in supine position and was given IV sedation. The right face was prepped and draped in the usual fashion. SCD's were placed for DVT prophylaxis. Perioperative antibiotics were given intravenously. For the procedure, I wore an N95 mask and wore proper eyewear protection. The lesion right lower lateral cheek by the ear lobe was infiltrated with xylocaine and epinephrine. After waiting 5 minutes for the anesthetic to take effect, the lesion was excised in an intradermal fashion and sent to Pathology as a frozen section for analysis to rule out carcinoma. Frozen section showed it was a basal cell carcinoma. So further excision was done with a 3 mm margin in all directions down into the subcutaneous tissue thus making it a 1.4 cm excision. A suture was marked at 12 oclock position for pathology orientation. The basal cell carcinoma lesion was sent to Pathology for analysis to rule out carcinoma at the margins. Hemostasis was obtained with electrocautery. The size of the defect after excision basal cell carcinoma was 1.4 x 1.4 cm or 1.96 cm2. The wound was dressed with Aquacel Silver dressing and secured to the skin edge with 5-0 Nylon tie over stent suture dressing. Because her HgbA1c was 13, I didn't want to reconstruct the wound at this time. Once her HgbA1c is less than 8, if there is a scar contour deformity, then a scar excision with revision can be done. Patient tolerated the procedure well and was sent to PACU in satisfactory condition. Patient will be sent home on antibiotics and pain medication. She will keep her head elevated during the initial postoperative period. Patient wi ll followup in a couple of days on for takedown of the basal cell carcinoma wound dressing with a wound check and to instruct the family on Silver dressing changes. Will also discuss the pathology report when it becomes available. Grafts/Implants Used: Aquacel Silver. - Complications None. - Admit VTE Documentation VTE Present on Admission: No VTE Mechan Device Prophylaxis: SCD's VTE Pharm Prophylaxis ordered?: No Surgery Charges CPT - 75576 ICD-10 - C44.319, D49.2, S01.401A, E11.9, Z87.891
--- NOTE | 2020-02-26 11:18 | PCM.DC ---
You will use the following diet at home:: Calorie/Carbohydrate Controlled (specify 1200, 1400, etc), Other - encourage nutritional supplementation with protein to help the healing process. Discharge Activity: May not drive while taking narcotic pain medications., May Shower - on the days the silver dressing is changed., - - keep head elevated. no heavy lifting. May shower in (days): 2 May resume sexual activity in: No Restrictions Weight Bearing Status: Weight bearing as tolerated Lifting Restrictions: 20 lbs. Keep extremity elevated above heart level: - - elevate head. Call your doctor if your incision/area has: Continuous Slow Oozing, Sudden Increased Bleeding, Increased Pain/ Swelling, Increased Redness, Foul Smelling Discharge, Swelling at the incision site Call your doctor if you observe: Fever of 101 or Higher, Coldness, Increased Pain, Shortness of breath, Chest pain, Calf discomfort, Uncontrolled pain Suture Line Care: - - silver dresisng changes. Change Dressing in (Days):: 2 - will change operative dressing in office. Cleanse incision/area with: Soap & Water - may cleanse the wound with soap and water at the time of the silver dressing change., - - may shower on the days the dressing is changed. Allergies/Adverse Reactions: Allergies No Known Allergies Allergy (Verified 02/15/20 13:21) Medications to take at Discharge multivitamin 1 tab PO QAM 08/18/17 rosuvastatin 10 mg tablet 10 mg PO DAILY #90 tab 06/06/19 glipizide 10 mg tablet, extended release 24 hr 10 mg PO BID #180 tab 10/26/19 hydrochlorothiazide 25 mg tablet 25 mg PO QAM #90 tab 11/13/19 pregabalin 75 mg capsule 75 mg PO DAILY #90 cap 11/27/19 cholecalciferol (vitamin D3) 100 mcg (4,000 unit) capsule 100 mcg PO DAILY 02/06/20 labetalol 100 mg tablet 100 mg PO BID #180 tab 02/11/20 Amlodipine Besylate [Norvasc] 5 mg PO DAILY 02/15/20 Ascorbic Acid [Vitamin C] 1,000 mg PO DAILY 02/15/20 Insulin Glargine [Lantus SoloStar Pen] 60 unit SUBCUT QHS 02/15/20 Insulin Lispro [Humalog] 15 unit SQ TID 02/15/20 Lisinopril 40 mg PO DAILY 02/15/20 Oxycodone Myristate [Xtampza ER] 13.5 mg PO BID 02/15/20 Clindamycin HCl [Cleocin] 300 mg PO TID #15 cap 02/26/20 Lactobacillus Acidophilus/Fos [Acidophilus Probiotic Tablet] 1 ea PO BID #20 tab 02/26/20 Oxycodone HCl/Acetaminophen [Percocet 5/325] 1 tablet PO TID PRN PRN 5 Days #15 tablet 02/26/20 The following prescriptions were given: Lactobacillus Acidophilus/Fos [Acidophilus Probiotic Tablet] 1 ea PO BID #20 tab Transmission Status: Pending to [facility]/pharmacy #[id number] Clindamycin HCl [Cleocin] 300 mg PO TID #15 cap Transmission Status: Pending to [facility]/pharmacy #[id number] Oxycodone HCl/Acetaminophen [Percocet 5/325] 1 tablet PO TID PRN PRN 5 Days #15 tablet PRN Reason: Pain Score 6-10 Transmission Status: Received by [facility]/pharmacy #[id number] Primary Care Physician: Ho Landeros DO [Primary Care Provider] - Test Results: Test results from this visit will be discussed in further detail at your follow-up appointment, if applicable. Please Follow Up With: Dez Hung MD When: 02/28/20. call [phone] for appt. Proposed Discharge Date: 02/26/20
== END 2020-02-26 12:15 | disposition home or self-care (01) ==
LOC: SDC 08:04 → AC 08:05
PROVIDERS: Anesthesiology; PCP Family Medicine; Referring Provider Surgery; Visit Provider Surgery
PROC: (CPT 11642; principal; 2020-02-26 09:35)
DX: C44.319 Basal cell carcinoma of skin of other parts of face (principal); D49.2 Neoplasm of unspecified behavior of bone, soft tissue, and skin; L57.8 Other skin changes due to chronic exposure to nonionizing radiation; S01.401A Unspecified open wound of right cheek and temporomandibular area, initial encounter; E11.65 Type 2 diabetes mellitus with hyperglycemia; E11.40 Type 2 diabetes mellitus with diabetic neuropathy, unspecified; E78.5 Hyperlipidemia, unspecified; E78.00 Pure hypercholesterolemia, unspecified; N18.4 Chronic kidney disease, stage 4 (severe); I12.9 Hypertensive chronic kidney disease with stage 1 through stage 4 chronic kidney disease, or unspecified chronic kidney disease; I34.1 Nonrheumatic mitral (valve) prolapse; M19.90 Unspecified osteoarthritis, unspecified site; Z79.4 Long term (current) use of insulin; Z79.899 Other long term (current) drug therapy; Z82.3 Family history of stroke; Z82.49 Family history of ischemic heart disease and other diseases of the circulatory system; Z87.891 Personal history of nicotine dependence; Z85.828 Personal history of other malignant neoplasm of skin
CPT/HCPCS: 00300; 11642; 15004; 82962; 87635; 88305; 88331; 93005; C9803; J7120; U0003

== ENCOUNTER → 2020-07-17 15:16 | Outpatient (CLI) | payer MEDICARE, SELFPAY ==
[2020-05-14 14:06] VITALS: BMI 41.5
[2020-07-17 16:29] LABS: Amphetamine Urine VISTA NEGATIVE (<1000 ng/mL); Barbiturate Urine VISTA NEGATIVE (< 200 ng/mL); Benzodiazepine Urine VISTA NEGATIVE (< 200 ng/mL); Cocaine Urine VISTA NEGATIVE (< 300 ng/mL); Ecstacy Urine VISTA POSITIVE (< 500 ng/mL); Methadone Urine VISTA NEGATIVE (< 300 ng/mL); PCP Urine VISTA NEGATIVE (< 25 ng/mL); THC Urine VISTA NEGATIVE (< 50 ng/mL); Vista UDS pH Range 5
== END ==
PROVIDERS: PCP Family Medicine; Visit Provider Anesthesiology Pain Medicine
DX: F11.20 Opioid dependence, uncomplicated (principal)
CPT/HCPCS: 80307

== ENCOUNTER → 2020-11-12 13:52 | Outpatient (CLI) | payer MEDICARE, SELFPAY ==
[2020-11-12 13:13] VITALS: BMI 41.9
[2020-11-12 15:15] LABS: Absolute Lymphocyte Count 1.64 X10^3/uL (0.83-4.51); Absolute Neutrophil Count 5.1 X10^3/uL (2.0-7.7); Basophil# 0.05 X10^3/uL; Basophil% 0.7 % (0-1); Eosinophil# 0.08 X10^3/uL; Hemoglobin 13.9 g/dL (12.0-15.0); Lymphocyte # 1.64 X10^3/ul (0.83-4.51); Lymphocyte % 21.5 % (19-41); Mean Corp Hgb Conc 30.9 g/dL (32-36); Mean Corpuscular Hgb 30.3 pg (27.0-32.0); Mean Platelet Vol. 9.8 fl (6.2-12.0); Monocyte# 0.67 X10^3/uL; Monocyte% 8.8 % (0-10); NRBC Flagged by Analyzer 0 % (0-5); Neutrophil # 5.12 X10^3/uL (2.7-7.7); Neutrophil % 67.2 % (47-70); Platelet Count 242 K/mm3 (150-450); RBC Distribution Width SD 43.6 fl (35.1-43.9); Red Blood Count 4.59 M/mm3 (4.2-5.4); White Blood Count 7.6 K/mm3 (4.4-11.0)
[2020-11-12 15:42] LABS: ALB/GLOB Ratio 1.6 RATIO (0.9-2.4); AST(SGOT) 25 U/L (15-37); Alanine Aminotransfer ALT/SGPT 34 U/L (13-56); Albumin, Serum 4.1 g/dL (3.2-5.0); Alkaline Phosphatase 83 U/L (45-117); Anion Gap 6 (5-15); BUN 27 mg/dL (7-18); BUN/Creat Ratio 25.7 RATIO (10-20); Calcium,Total 9.4 mg/dL (8.5-10.1); Chloride 110 mmol/L (98-107); Cholesterol 159 mg/dL (200); Creatinine, Serum 1.05 mg/dL (0.55-1.02); EST Glomerular Filtration Rate 56 mL/min (>60); Est Glom Filt Rate - Afr Amer 68 mL/min (>60); Globulin 2.6 g/dL (2.2-4.2); Glucose 94 mg/dL (74-106); High Density Lipoprotein 56 mg/dL; Potassium 4.7 mmol/L (3.5-5.1); Protein, Total 6.7 g/dL (6.4-8.2); Sodium Level 145 mmol/L (136-145); Thyroid Stim Hormone (TSH) 3.71 uIU/mL (0.358-3.74); Triglycerides 154 mg/dL; Very Low Density Lipoprotein 31 mg/dL (5-40)
[2020-11-12 15:55] LABS: Microalbumin:Creatinine Ratio 1163.7 mg/g CRE (<30 mg/g CRE)
[2020-11-12 16:16] LABS: BNP,B-Type NATRIURETIC PEPTIDE 104.4 pg/mL (0-100)
== END ==
PROVIDERS: PCP Family Medicine; Referring Provider Nurse Practitioner Family; Visit Provider Nurse Practitioner Family
DX: E11.8 Type 2 diabetes mellitus with unspecified complications (principal); N18.2 Chronic kidney disease, stage 2 (mild); E78.5 Hyperlipidemia, unspecified; I10 Essential (primary) hypertension; Z79.4 Long term (current) use of insulin; R06.00 Dyspnea, unspecified
CPT/HCPCS: 36415; 80053; 80061; 82043; 82570; 83880; 84443; 85025

== ENCOUNTER → 2020-11-24 13:38 | Outpatient (CLI) | payer MEDICARE, SELFPAY ==
[2020-11-12 13:13] VITALS: BMI 41.9
--- NOTE | 2020-11-24 13:41 | ECHOD_ITS ---
Reason For Study: MVP, HTN Procedure This was a 2D Doppler, Color Flow transthoracic echocardiogram. Exam performed in department. Left Ventricle Normal LV size. Left ventricular systolic function is normal. The estimated ejection fraction is 55 %. No regional wall motion abnormalities noted. Right Ventricle Normal RV size. Normal systolic function. Atria Normal left atrium. Normal right atrium. Mitral Valve Posterior leaflet mitral valve prolapse. Mild (1+) eccentric mitral valve insufficiency. Tricuspid Valve Normal tricuspid valve. Aortic Valve Trisinus/trileaflet aortic valve. Mild focal aortic valve calcification. Pulmonic Valve Normal pulmonic valve. Great Vessels Normal aortic root. The pulmonary artery is normal size. Normal inferior vena cava. Pericardium/Pleural Trivial pericardial effusion. MMode/2D Measurements & Calculations LVIDd: 4.5 cm IVSd: 1.4 cm Ao root diam: 3.6 cm LVIDs: 3.1 cm LVPWd: 1.4 cm FS: 31.5 % LAV(MOD-bp): 56.0 ml EDV(MOD-sp4): 121.7 ml EDV(MOD-sp2): 73.2 ml LAV(MOD-bp) Indexed: 25.4 ml/m2 ESV(MOD-sp4): 38.5 ml ESV(MOD-sp2): 31.0 ml LAV(MOD-sp2): 57.2 ml EF(MOD-sp4): 68.4 % EF(MOD-sp2): 57.7 % LAV(MOD-sp4): 52.3 ml SV(MOD-sp4): 83.2 ml SV(MOD-sp2): 42.3 ml LA A4 area: 19.1 cm2 LA dimension(2D): 4.2 cm RA A4 area: 15.7 cm2 Time Measurements MV dec time: 0.28 sec Doppler Measurements & Calculations MV E max mark: 80.8 cm/sec Lat Peak E' Mark: 6.5 cm/sec Med Peak E' Mark: 5.4 cm/sec MV A max mark: 128.0 cm/sec E/E' lat: 12.4 E/E' med: 14.9 MV E/A: 0.63 MV V2 max: 131.9 cm/sec Ao V2 max: 144.2 cm/sec LV V1 max: 100.3 cm/sec MV max P.0 mmHg Ao max P.3 mmHg LV V1 max P.0 mmHg MV V2 mean: 90.4 cm/sec Ao V2 mean: 101.3 cm/sec LV V1 mean P.1 mmHg MV mean P.5 mmHg Ao mean P.5 mmHg LV V1 mean: 67.5 cm/sec MV V2 VTI: 25.6 cm Ao V2 VTI: 30.2 cm LV V1 VTI: 20.3 cm PA V2 max: 99.0 cm/sec MV P1/2t-pr_phl: 115.6 msec ECHO/Echo Complete Interpretation Summary Normal LV size. Left ventricular systolic function is normal. The estimated ejection fraction is 55 %. Posterior leaflet mitral valve prolapse. Mild (1+) eccentric mitral valve insufficiency. Ordering Physician: Lars Swenson Referring Physician: KIRBY SALOMON Performed By: Kamryn Hirsch, RDCS, RVT
== END ==
PROVIDERS: PCP Family Medicine; Referring Provider Nurse Practitioner Family; Visit Provider Nurse Practitioner Family
DX: I34.1 Nonrheumatic mitral (valve) prolapse (principal); I10 Essential (primary) hypertension
CPT/HCPCS: 93306

== ENCOUNTER 2021-04-27 15:11 | Emergency (ER) | payer MEDICARE, SELFPAY ==
[2021-04-27 15:12] VITALS: BP 165/102; PULSE 103; RESP 15; TEMP 37.6; O2SAT 94; BMI 43.2
[2021-04-27 15:15] VITALS: BP 165/102; PULSE 105; RESP 17; O2SAT 95
--- NOTE | 2021-04-27 15:34 | CT_ITS ---
EXAM: CT LUMBAR SPINE WITHOUT INTRAVENOUS CONTRAST CLINICAL INDICATION: trauma, exacerbation of pain TECHNIQUE: Helically acquired images were obtained of the lumbar spine without intravenous contrast. 2D reformats were reviewed. This CT exam was performed using one or more of the following dose reduction techniques: automated exposure control, adjustment of the mA and/or kV according to patient size, and/or use of iterative reconstruction technique. This report was created using [employer] report [employer] technology. COMPARISON: None. FINDINGS: VERTEBRAE: Anterior spondylosis at multiple levels. Grade 2 anterolisthesis of L4-L5 due to facet arthropathy. No fracture. No discrete lytic or blastic abnormality. DISCS/SPINAL CANAL/NEURAL FORAMINA: Disc space narrowing most severe at L4-L5 and L5-S1. Canal stenosis most severe at L4-L5. Bilateral foraminal narrowing L4-L5 and L5-S1. VASCULATURE: Atherosclerosis of the abdominal aorta. LYMPH NODES: Unremarkable. No retroperitoneal adenopathy. CT/Spine Lumbar without Contrast IMPRESSION: No compression fracture. Electronically Signed: Jay Jay Carter MD ([place]) at 16:30 EST , Service support ,
--- NOTE | 2021-04-27 15:38 | EDS_ITS ---
HPI History of Present Illness Chief Complaint: Back Informant: patient Narrative Narrative: Patient presents with exacerbation of her back pain. She states it is in the same area and the same type of pain just worse. She did fall today which is what caused her increase in pain. She was about to let her cat out. Her socks have adhesive pads stick to the ground and caused her to fall. This was a mechanical fall and not syncope. She landed on her abdomen. She states the only thing that hurts is her back. She never hit her head. She is not on anticoagulation. Although she has exacerbation of her back pain, she has no incontinence numbness tingling or radicular symptoms. She is not having any abdominal pain. Motion makes it worse and rest makes it better. [facility] Medical History Arthritis Back pain Basal cell carcinoma of right lateral cheek Bilateral lower extremity edema Chronic pain Hyperlipemia Hypertension Kidney failure Knee pain Mitral valve prolapse Neoplasm of skin of right cheek Neuropathy Ruptured disk Skin cancer Type 2 diabetes mellitus Vision problems Home Medications multivitamin 1 tab PO QAM 08/18/17 [History Last Taken 10/28/17] cholecalciferol (vitamin D3) 100 mcg (4,000 unit) capsule 100 mcg PO DAILY 02/06/20 [History Last Taken Unknown] ascorbic acid (vitamin C) 1,000 mg PO DAILY 02/15/20 [History Last Taken Unknown] rosuvastatin 10 mg tablet 10 mg PO DAILY #90 tab 03/04/20 [Rx Last Taken Unknown] mghzjfi-oitzmppmo-clfa 333 mg-133 mg-5 mg tablet 1 tablet PO DAILY 08/05/20 [History Last Taken Unknown] amlodipine 5 mg tablet 5 mg PO DAILY #90 tablet 08/13/20 [Rx Last Taken Unknown] naproxen 250 mg tablet 250 mg PO BID PRN 09/29/20 [History Last Taken Unknown] torsemide 10 mg tablet 10 mg PO DAILY #30 tab 09/29/20 [Rx Last Taken Unknown] diazepam 5 mg tablet 5 mg PO QHS PRN #1 tab 11/03/20 [Rx Last Taken Unknown] oxycodone myristate 13.5 mg capsule sprinkle extend release 12hr(DON'T CRUSH) 13.5 mg PO BID ea 11/12/20 [History Last Taken Unknown] lisinopril 40 mg tablet 40 mg PO DAILY #90 tab 12/04/20 [Rx Last Taken Unknown] labetalol 200 mg tablet 200 mg PO BID #180 tab 02/10/21 [Rx Last Taken Unknown] glipizide 10 mg tablet, extended release 24 hr 10 mg PO DAILY #90 tab 04/23/21 [Rx Last Taken Unknown] insulin glargine 62 unit SC QHS 04/27/21 [History Last Taken Unknown] insulin lispro 24 unit SC TID 04/27/21 [History Last Taken Unknown] Allergy/AdvReac Type Severity Reaction Status Date / Time No Known Allergies Allergy Verified 04/27/21 15:12 Family History Mother Colon cancer Heart disease Hypertension Father Brain tumor CVA (cerebral vascular accident) Brother CVA (cerebral vascular accident) Diabetes Grandmother Parkinsons Other Alcoholism Angina at rest Arthritis Cancer FH: defects Lung cancer Seizures Surgical History H/O right heart catheterization History of basal cell carcinoma excision Social History Smoking Status: Former smoker how long ago did patient quit smokin alcohol intake: former substance use type: does not use what type of physical activity do you participate in: none additional social history: DOES NOT TAKE ASPIRIN DOES TAKE IBUPROFEN NEEDED ROS ROS ED Constitutional Constitutional ED: Denies fever(s) Eyes Eyes: Denies blurry vision or change in vision ENT ENT ED: Denies rhinorrhea Cardiovascular Cardiovascular: Denies chest pain or palpitations Respiratory/Chest Respiratory/Chest: Denies dyspnea Gastrointestinal Gastrointestinal: Denies abdominal pain, constipation, diarrhea, melena, nausea or vomiting Genitourinary Genitourinary ED: Denies dysuria or hematuria Musculoskeletal Musculoskeletal: Reports back pain; Denies neck pain Integumentary Denies rash Neurologic Neurologic: Denies headache(s), paresthesias or weakness Endocrine Endocrinology: Denies polydipsia or polyuria Hematologic/Lymphatic Hematologic/Lymphatic: Denies easy bleeding or easy bruising Allergic/Immunologic Allergic/Immunologic ED: Denies mouth swelling or urticaria EXAM Physical Exam Const Vital Signs: 04/27/21 15:12 12/13/21 15:15 Temperature 99.7 F H Temperature Source Oral Pulse Rate 103 H 105 H Respiratory Rate 15 17 Blood Pressure 165/102 H 165/102 H Blood Pressure Mean 123 123 Pulse Ox 94 95 Oxygen Delivery Method Room Air Room Air Positive well nourished, well developed and obese Constitutional Narrative: Patient is lying on her back in bed. She is comfortable in this position. She carries on normal conversation and is nontoxic. General Appearance ED: well developed and NAD Nutritional Appearance: obese HEENT atraumatic; Negative for trauma or tenderness Eyes EOMs intact bilaterally Neck full ROM General: Negative for tenderness Chest Wall inspection of chest normal Resp normal respiratory effort and clear to auscultation bilaterally Auscultation: Negative for rales, rhonchi or wheezes Cardio regular rhythm Rate: regular rate GI normal to inspection, nondistended, normoactive bowel sounds, non-tender and no masses Auscultation: normoactive bowel sounds Palpation: soft Back/Spine normal to inspection Back/Spine Narrative: Patient has some tenderness mostly in the very lower lumbar area more on the right than the. No deformity noted. General Back: Negative for CVA tenderness Extremity normal to inspection and full ROM Extremity Narrative: She has a small contusion/abrasion on the right forearm but is not tender. It does look acute. I see no other signs of injuries on upper or lower extremities. There is no pain with hip motion. General Extremety ED: Negative for tenderness Neuro oriented x3 Neuro Narrative: Patient has normal sensation and localization of pain easily on all 4 extremities. Sensorium / Orientation: alert Skin no rashes or lesions noted Skin Narrative: Contusion right forearm as above. MDM MDM MDM Narrative Medical decision making narrative: CT shows no sign of fracture or compression fracture. Patient is doing better but she still has some pain. I will write for some more morphine here. She is already on pain management as an outpatient so I cannot prescribe more. She understands that fully. Her is coming to pick her up. We discussed returning with worsening pain, any numbness tingling weakness bowel or bladder dysfunction. Radiography Diagnostic Testing: Clinical Impression(s) from Imaging Studies Lumbar Spine CT 04/27/21 15:34 IMPRESSION: No compression fracture. Electronically Signed: Jay Jay Carter MD ([place]) at 16:30 EST , Service support , Discharge Plan Triage Chief Complaint: Back ED Provider: Dave Calabrese Dx/Rx/DC Orders Clinical Impression: Fall from slip, trip, or stumble, Acute exacerbation of chronic low back pain Instructions: ED Pain Management: Chronic Prescriptions: No Action multivitamin tablet 1 tab PO QAM RF: 0 cholecalciferol (vitamin D3) 100 mcg (4,000 unit) capsule 100 mcg (4,000 unit) capsule 100 mcg PO DAILY RF: 0 fiphujt-gvjgltgdv-mvgf 333-133-5 mg tablet 1 tablet PO DAILY RF: 0 naproxen 250 mg tablet 250 mg PO BID PRN (Reason: Pain) RF: 0 torsemide 10 mg tablet 10 mg PO DAILY Qty: 30 RF: 2 diazepam [Valium] 5 mg tablet 5 mg PO QHS PRN (Reason: anxiety) Qty: 1 RF: 0 labetalol 200 mg tablet 200 mg PO BID Qty: 180 RF: 3 ascorbic acid (vitamin C) 1,000 MG tablet 1,000 mg PO DAILY RF: 0 oxycodone myristate 13.5 mg cap,sprinkl,ER12hr(DONT CRUSH) 13.5 mg PO BID RF: 0 insulin lispro 100 unit/mL insulin pen 24 unit SC TID RF: 0 insulin glargine 100 unit/mL (3 mL) insulin pen 62 unit SC QHS RF: 0 rosuvastatin [Crestor] 10 mg tablet 10 mg PO DAILY Qty: 90 RF: 2 amlodipine 5 mg tablet 5 mg PO DAILY Qty: 90 RF: 2 lisinopril 40 mg tablet 40 mg PO DAILY Qty: 90 RF: 2 glipizide 10 mg tablet extended release 24hr 10 mg PO DAILY Qty: 90 RF: 1 Primary Care Provider: Ho Landeros Referrals: Ho Landeros, DO [Primary Care Provider] - 3-5 Days if not improving Disposition Disposition: Home, Self Care
[2021-04-27] MEDS: Morphine 4 MG/ML Syringe IM ×2 (15:56→18:02)
[2021-04-27 17:59] VITALS: BP 171/88; PULSE 106; RESP 17; O2SAT 96
== END 2021-04-27 18:11 | disposition home or self-care (01) ==
PROVIDERS: Emergency Provider Emergency Medicine; PCP Family Medicine
DX: M54.50 Low back pain, unspecified (principal); W01.0XXA Fall on same level from slipping, tripping and stumbling without subsequent striking against object, initial encounter; E11.40 Type 2 diabetes mellitus with diabetic neuropathy, unspecified; E78.5 Hyperlipidemia, unspecified; G89.29 Other chronic pain; I10 Essential (primary) hypertension; I34.1 Nonrheumatic mitral (valve) prolapse; M19.90 Unspecified osteoarthritis, unspecified site; Z87.891 Personal history of nicotine dependence; Z80.1 Family history of malignant neoplasm of trachea, bronchus and lung; Z79.4 Long term (current) use of insulin
CPT/HCPCS: 36415; 71045; 72100; 72131; 73502; 80048; 80053; 80076; 82550; 82962; 83605; 83615; 83735; 84145; 84484; 85025; 85379; 85384; 85610; 87070; 87205; 87426; 87449; 97162; 97166; 97530; 99251; 99283; 99285; J7050; A4216; G0463

== ENCOUNTER 2021-04-27 20:17 | Inpatient (IN) | payer MEDICARE, SELFPAY ==
[2021-04-27 20:21] VITALS: BP 175/127; PULSE 105; RESP 16; TEMP 37.1; O2SAT 91; BMI 44.1
--- NOTE | 2021-04-27 20:53 | RAD_ITS ---
STUDY: X-RAY - PELVIS AND RIGHT HIP REASON FOR EXAM: Female, 65 years old. Pain after injury. TECHNIQUE: 3 views of the pelvis and hip. COMPARISON: None. FINDINGS: No visible fracture. No osseous destruction. Bony demineralization. Alignment anatomic. Mild degenerative changes. No acute soft tissue abnormality. Calcific atherosclerosis. Calcified uterine fibroids. RAD/HIP, UNI W/ Pelvis 2-3 Views IMPRESSION: No acute osseous abnormality. Electronically Signed: Brennen Pathak MD at 23:10 EST Tel , Service support ,
--- NOTE | 2021-04-27 20:55 | EDS_ITS ---
[facility] <Dr. Dave Calabrese MD - Last Filed: 05/02/21 22:23> History of Present Illness Chief Complaint: Back Informant: patient Narrative Narrative: Patient represents to the emergency department with worsening pain and inability to walk into her house. She was seen here earlier today by myself. She had a mechanical slip and fall. She landed on her abdomen. She had exacerbation of what is her chronic area and type of pain. However the pain had increased. She was given pain meds here. We did do scan through the area that showed no acute process. She was comfortable going home. When she went home, she states she has 3 steps to get into her house. She has 1 step separate than the other 2. This step is a higher and larger step than others. She tried to get up this. When she pushed with her leg it caused pain in her back which caused her to fall again. She landed on the right hip this time. She still denies hitting her head. She states there is a little soreness in the hip but mostly her back still hurts in the exact same spot that it was hurting earlier in the spot which is chronic for her. She does take pain meds chronically through pain management but feels that they are likely not enough for this. She still has no bowel or bladder dysfunction. No incontinence. No numbness tingling or neurologic symptoms in her legs. She lives at home with her . Motion or trying to walk makes the pain worse. Meds we gave here did make it better. She is not on anticoagulation. [facility] <Dr. Dave Calabrese MD - Last Filed: 05/02/21 22:23> [facility] Medical History (Updated 04/28/21 @ 15:10 by Valerie Chandler) Anxiety Arthritis Back pain Basal cell carcinoma of right lateral cheek Bilateral lower extremity edema Chronic pain Depression Hyperlipemia Hypertension Kidney failure Knee pain Mitral valve prolapse Neoplasm of skin of right cheek Neuropathy Ruptured disk Skin cancer Type 2 diabetes mellitus Vision problems Home Medications multivitamin 1 tab PO QAM 08/18/17 [History Last Taken 10/28/17] cholecalciferol (vitamin D3) 100 mcg (4,000 unit) capsule 100 mcg PO DAILY 02/06/20 [History Last Taken Unknown] ascorbic acid (vitamin C) 1,000 mg PO DAILY 02/15/20 [History Last Taken Unknown] rosuvastatin 10 mg tablet 10 mg PO DAILY #90 tab 03/04/20 [Rx Last Taken Unknown] haxsbqt-exgdbwqoo-okga 333 mg-133 mg-5 mg tablet 1 tablet PO DAILY 08/05/20 [History Last Taken Unknown] amlodipine 5 mg tablet 5 mg PO DAILY #90 tablet 08/13/20 [Rx Last Taken Unknown] naproxen 250 mg tablet 250 mg PO BID PRN 09/29/20 [History Last Taken Unknown] torsemide 10 mg tablet 10 mg PO DAILY #30 tab 09/29/20 [Rx Last Taken Unknown] diazepam 5 mg tablet 5 mg PO QHS PRN #1 tab 11/03/20 [Rx Last Taken Unknown] oxycodone myristate 13.5 mg capsule sprinkle extend release 12hr(DON'T CRUSH) 13.5 mg PO BID ea 11/12/20 [History Last Taken Unknown] lisinopril 40 mg tablet 40 mg PO DAILY #90 tab 12/04/20 [Rx Last Taken Unknown] labetalol 200 mg tablet 200 mg PO BID #180 tab 02/10/21 [Rx Last Taken Unknown] glipizide 10 mg tablet, extended release 24 hr 10 mg PO DAILY #90 tab 04/23/21 [Rx Last Taken Unknown] insulin glargine 62 unit SC QHS 04/27/21 [History Last Taken Unknown] insulin lispro 24 unit SC TID 04/27/21 [History Last Taken Unknown] dexamethasone 6 mg PO DAILY #8 tab 04/29/21 [Rx Last Taken Unknown] Allergy/AdvReac Type Severity Reaction Status Date / Time No Known Allergies Allergy Verified 04/27/21 20:29 Family History Mother Colon cancer Heart disease Hypertension Father Brain tumor CVA (cerebral vascular accident) Brother CVA (cerebral vascular accident) Diabetes Grandmother Parkinsons Other Alcoholism Angina at rest Arthritis Cancer FH: defects Lung cancer Seizures Surgical History H/O right heart catheterization History of basal cell carcinoma excision Social History Smoking Status: Former smoker how long ago did patient quit smokin alcohol intake: former substance use type: does not use what type of physical activity do you participate in: none additional social history: DOES NOT TAKE ASPIRIN DOES TAKE IBUPROFEN NEEDED ROS <Dr. Dave Calabrese MD - Last Filed: 05/02/21 22:23> ROS ED Constitutional Constitutional ED: Denies fever(s) Eyes Eyes: Denies blurry vision ENT ENT ED: Denies rhinorrhea Cardiovascular Cardiovascular: Denies chest pain Respiratory/Chest Respiratory/Chest: Denies cough or dyspnea Gastrointestinal Gastrointestinal: Denies abdominal pain, nausea or vomiting Genitourinary Genitourinary ED: Denies dysuria, hematuria or urinary frequency Musculoskeletal Musculoskeletal: Reports back pain and other Details: See history of present illness. ; Denies myalgias or neck pain Integumentary Denies rash Psychiatric Psychiatric: Denies depression Endocrine Endocrinology: Denies polydipsia or polyuria Hematologic/Lymphatic Hematologic/Lymphatic: Denies easy bleeding or easy bruising Allergic/Immunologic Allergic/Immunologic ED: Denies mouth swelling or urticaria EXAM <Dr. Dave Calabrese MD - Last Filed: 05/02/21 22:23> Physical Exam Const Vital Signs: 04/27/21 20:21 04/27/21 21:50 Temperature 98.8 F Temperature Source Temporal Pulse Rate 105 H 100 Respiratory Rate 16 20 H Blood Pressure 175/127 H 187/75 H Blood Pressure Mean 143 112 Pulse Ox 91 95 Oxygen Delivery Method Room Air Nasal Cannula Oxygen Flow Rate (L/min) 2 Patient is lying quietly in bed. Positive well nourished, well developed and obese General Appearance ED: well developed and NAD Nutritional Appearance: obese HEENT HEENT Narrative: I still see no sign of contusions abrasions or impact of her head. She also denies hitting her head and denies any loss of consciousness. atraumatic; Negative for trauma Eyes EOMs intact bilaterally Neck full ROM General: Negative for tenderness Chest Wall inspection of chest normal Resp normal respiratory effort and clear to auscultation bilaterally Resp Narrative: No pain with AP or lateral compression Auscultation: Negative for rales, rhonchi or wheezes Cardio regular rhythm Rate: regular rate GI normal to inspection, nondistended, normoactive bowel sounds and non-tender GI Narrative: Abdomen is obese but overall nontender. Noted development of contusions other than small ones from her insulin injections. These are unchanged from prior. Palpation: soft Back/Spine normal to inspection Back/Spine Narrative: I still see no contusion or abrasion on her back. Her pain is really very low on the right paraspinal/sacral area. She does have some mild tenderness laterally in the buttock and greater trochanteric area but I do not see contusions at this area yet either. Extremity Extremity Narrative: Unchanged slight contusion to right forearm. There is a very small contusion to the anterior right knee that I do not recall seeing last time. However, there is no tenderness there at all. There is no effusion or swelling. Neuro oriented x3 Neuro Narrative: No numbness or sensory changes of significance. Sensorium / Orientation: alert Psych mental status grossly normal Skin no rashes or lesions noted Skin Narrative: Slight contusions as above. <Dr. Kwabena Donnelly DO - Last Filed: 04/28/21 05:55> Physical Exam Const Vital Signs: 04/27/21 20:21 04/27/21 21:50 Temperature 98.8 F Temperature Source Temporal Pulse Rate 105 H 100 Respiratory Rate 16 20 H Blood Pressure 175/127 H 187/75 H Blood Pressure Mean 143 112 Pulse Ox 91 95 Oxygen Delivery Method Room Air Nasal Cannula Oxygen Flow Rate (L/min) 2 MDM <Dr. Dave Calabrese MD - Last Filed: 05/02/21 22:23> [facility] MDM Narrative Medical decision making narrative: Did do baseline labs. CBC is normal. Electrolytes show no marked abnormalities that would explain her symptoms. Her glucose was mildly elevated to 88. I did do x-rays of her lumbar spine and hip. She had fallen again. The lumbar spine shows the anterior listhesis but this was seen on the CT. X-rays of the hip pelvis showed no acute process. Patient did get some relief with meds here. We are trying to walk her to see if she does okay. Lab Data Attestation: I reviewed the patient's lab results. Labs: Laboratory Results - last 24 hr 04/27/21 04/27/21 21:43 21:43 WBC 5.9 RBC 4.55 Hgb 14.1 Hct 44.1 MCV 96.9 MCH 31.0 MCHC 32.0 RDW Std Deviation 47.4 H RDW Coeff of Eva 13.3 Plt Count 177 MPV 9.2 Immature Gran % (Auto) 1.000 H Neut % (Auto) 65.2 Lymph % (Auto) 15.8 L [place] % (Auto) 17.3 H Eos % (Auto) 0.2 Baso % (Auto) 0.5 Absolute Neuts (auto) 3.9 Absolute Lymphs (auto) 0.94 Nucleated RBC % 0 Sodium 139 Potassium 4.4 Chloride 106 Carbon Dioxide 26.0 Anion Gap 7 BUN 23 H Creatinine 0.99 Estim Creat Clear Calc 50.98 Est GFR (MDRD) Af Amer 72 Est GFR (MDRD) Non-Af 59 L BUN/Creatinine Ratio 23.1 H Glucose 288 H Calcium 9.0 Radiography Diagnostic Testing: Clinical Impression(s) from Imaging Studies Hip/Pelvis X-Ray 04/27/21 20:53 IMPRESSION: No acute osseous abnormality. Electronically Signed: Brennen Pathak MD at 23:10 EST Tel , Service support , Lumbar Spine X-Ray 04/27/21 22:23 IMPRESSION: Grade 2 degenerative anterolisthesis of L4 relative to L5 with severe facet arthrosis at L4-5 bilaterally. Electronically Signed: David Fonseca MD at 23:29 EST Tel , Service support , Chest X-Ray 04/28/21 04:43 IMPRESSION: No acute findings. Electronically Signed: Brennen Pathak MD at 5:48 EST Tel , Service support , <Dr. Kwabena Donnelly, DO - Last Filed: 04/28/21 05:55> [facility] MDM Narrative Medical decision making narrative: I assumed care for this patient at 11 PM in signout from Dr. Calabrese. The current plan was to have the patient see social work in the morning and try to determine if she could go to the TCU or some other facility due to her continued pain. Due to the high volume of inpatient admissions it is difficult to get her inpatient care and she is amenable to going to a jail facility. I spoke with the director at [facility] who was willing to have the patient come over tonight. She requested that I get a Covid swab since the patient has not been vaccinated. Unfortunately, the patient's Covid test came back positive. On evaluation the patient's pulse ox was 91 and she was placed on O2. She is not symptomatic otherwise. I will have the patient see social work in the morning to figure out the best plan for her. Lab Data Attestation: I reviewed the patient's lab results. Labs: Laboratory Results - last 24 hr 04/27/21 04/27/21 21:43 21:43 WBC 5.9 RBC 4.55 Hgb 14.1 Hct 44.1 MCV 96.9 MCH 31.0 MCHC 32.0 RDW Std Deviation 47.4 H RDW Coeff of Eva 13.3 Plt Count 177 MPV 9.2 Immature Gran % (Auto) 1.000 H Neut % (Auto) 65.2 Lymph % (Auto) 15.8 L [place] % (Auto) 17.3 H Eos % (Auto) 0.2 Baso % (Auto) 0.5 Absolute Neuts (auto) 3.9 Absolute Lymphs (auto) 0.94 Nucleated RBC % 0 Sodium 139 Potassium 4.4 Chloride 106 Carbon Dioxide 26.0 Anion Gap 7 BUN 23 H Creatinine 0.99 Estim Creat Clear Calc 50.98 Est GFR (MDRD) Af Amer 72 Est GFR (MDRD) Non-Af 59 L BUN/Creatinine Ratio 23.1 H Glucose 288 H Calcium 9.0 Radiography Diagnostic Testing: Clinical Impression(s) from Imaging Studies Hip/Pelvis X-Ray 04/27/21 20:53 IMPRESSION: No acute osseous abnormality. Electronically Signed: Brennen Pathak MD at 23:10 EST Tel , Service support , Lumbar Spine X-Ray 04/27/21 22:23 IMPRESSION: Grade 2 degenerative anterolisthesis of L4 relative to L5 with severe facet arthrosis at L4-5 bilaterally. Electronically Signed: David Fonseca MD at 23:29 EST Tel , Service support , Chest X-Ray 04/28/21 04:43 IMPRESSION: No acute findings. Electronically Signed: Brennen Pathak MD at 5:48 EST Tel , Service support , Discharge Plan Dx/Rx/DC Orders Clinical Impression: Acute exacerbation of chronic low back pain, Fall at home, COVID-19 Disposition Disposition: Acute Care Hospital [facility] Discharge Date/Time: 04/28/21 14:38
[2021-04-27] MEDS: HYDROmorphone 1 MG/ML Syringe IV (21:46)
[2021-04-27 21:48] LABS: Absolute Lymphocyte Count 0.94 X10^3/uL (0.83-4.51); Absolute Neutrophil Count 3.9 X10^3/uL (2.0-7.7); Basophil# 0.03 X10^3/uL; Basophil% 0.5 % (0-1); Eosinophil# 0.01 X10^3/uL; Eosinophils% 0.2 % (0-5); Hematocrit 44.1 % (37-47); Hemoglobin 14.1 g/dL (12.0-15.0); Lymphocyte # 0.94 X10^3/ul (0.83-4.51); Lymphocyte % 15.8 % (19-41); Mean Corpuscular Volume 96.9 fL (81-99); Mean Platelet Vol. 9.2 fl (6.2-12.0); Monocyte# 1.03 X10^3/uL; Monocyte% 17.3 % (0-10); NRBC Flagged by Analyzer 0 % (0-5); Neutrophil # 3.87 X10^3/uL (2.7-7.7); Neutrophil % 65.2 % (47-70); Platelet Count 177 K/mm3 (150-450); RBC Distribution Width CV 13.3 % (11.6-14.6); RBC Distribution Width SD 47.4 fl (35.1-43.9); Red Blood Count 4.55 M/mm3 (4.2-5.4); White Blood Count 5.9 K/mm3 (4.4-11.0)
[2021-04-27 21:50] VITALS: BP 187/75; PULSE 100; RESP 20; O2SAT 95
[2021-04-27 22:02] LABS: Anion Gap 7 (5-15); BUN 23 mg/dL (7-18); BUN/Creat Ratio 23.1 RATIO (10-20); Chloride 106 mmol/L (98-107); Creatinine, Serum 0.99 mg/dL (0.55-1.02); EST Glomerular Filtration Rate 59 mL/min (>60); Est Glom Filt Rate - Afr Amer 72 mL/min (>60); Estimated Creatinine Clearance 50.98 ml/min; Glucose 288 mg/dL (74-106); Potassium 4.4 mmol/L (3.5-5.1); Sodium Level 139 mmol/L (136-145)
--- NOTE | 2021-04-27 22:23 | RAD_ITS ---
EXAM: XR LUMBOSACRAL SPINE, 2 OR 3 VIEWS CLINICAL INDICATION: pain, trauma TECHNIQUE: Frontal and lateral views of the lumbar spine and sacrum. This report was created using [employer] technology. COMPARISON: None. FINDINGS: VERTEBRAE: Grade 2 degenerative anterolisthesis of L4 relative to L5 with severe facet arthrosis at L4-5 bilaterally. No acute or healing fracture or malalignment. No spondylolisthesis. Preservation of the normal lumbar lordosis. OTHER BONES/JOINTS: Small bone island involving left acetabular roof and left femoral head DISC SPACES: No acute findings. Disc spaces are maintained. SOFT TISSUES: Calcified fibroids suspected within the uterus. VASCULATURE: Atherosclerotic calcifications of the nonenlarged abdominal aorta. GASTROINTESTINAL TRACT: Normal bowel gas pattern. Included bowel gas pattern is non-obstructive. RAD/Lumbar Spine 2 or 3 Views IMPRESSION: Grade 2 degenerative anterolisthesis of L4 relative to L5 with severe facet arthrosis at L4-5 bilaterally. Electronically Signed: David Fonseca MD at 23:29 EST Tel , Service support ,
[2021-04-27 23:00] VITALS: RESP 18; O2SAT 98
[2021-04-28] VITALS (11 sets, daily range): BP systolic 147–189; BP diastolic 57–79; PULSE 88–106; RESP 16–18; TEMP 37.2–37.7; O2SAT 93–99; BMI 42.0
--- NOTE | 2021-04-28 04:43 | RAD_ITS ---
STUDY: X-RAY CHEST REASON FOR EXAM: Female, 65 years old. Short of breath. TECHNIQUE: AP COMPARISON: CTA chest 10/29/2017. FINDINGS: No evidence of pneumonia, pulmonary edema, pneumothorax or pleural effusion. Cardiac silhouette, hilar and mediastinal contours with no acute findings. Heart size normal. Atherosclerosis of the thoracic aorta. Degenerative osseous changes with no acute osseous abnormality. RAD/Chest 1 View (Portable) IMPRESSION: No acute findings. Electronically Signed: Brennen Pathak MD at 5:48 EST Tel , Service support ,
--- NOTE | 2021-04-28 11:06 | HP.PCM.HOS_ITS ---
HPI - General General Date of Admission: 04/28/21 Date of Service: 04/28/21 Chief Complaint: Generalized weakness HPI Narrative MICHELE OBRIEN, is a 65 F who presents with generalized weakness. Patient reports a week history of progressive generalized weakness as well as feeling tired. She also did complain of chills all the time. Denied any fever. No cough. She had also fallen a couple of times. She was seen in the emergency department with severe back pain and plans was for patient to have been discharged to longterm facility. Rapid Covid test obtained came back positive. Patient was also had to be placed on supplemental oxygen. Decision was therefore made to admit patient to the hospital for subsequent management [facility] Medical History Arthritis Back pain Basal cell carcinoma of right lateral cheek Bilateral lower extremity edema Chronic pain Hyperlipemia Hypertension Kidney failure Knee pain Mitral valve prolapse Neoplasm of skin of right cheek Neuropathy Ruptured disk Skin cancer Type 2 diabetes mellitus Vision problems Home Medications multivitamin 1 tab PO QAM 08/18/17 [History Last Taken 10/28/17] cholecalciferol (vitamin D3) 100 mcg (4,000 unit) capsule 100 mcg PO DAILY 02/06/20 [History Last Taken Unknown] ascorbic acid (vitamin C) 1,000 mg PO DAILY 02/15/20 [History Last Taken Unknown] rosuvastatin 10 mg tablet 10 mg PO DAILY #90 tab 03/04/20 [Rx Last Taken Unknown] ogqscaa-cmpowqmby-fnbq 333 mg-133 mg-5 mg tablet 1 tablet PO DAILY 08/05/20 [History Last Taken Unknown] amlodipine 5 mg tablet 5 mg PO DAILY #90 tablet 08/13/20 [Rx Last Taken Unknown] naproxen 250 mg tablet 250 mg PO BID PRN 09/29/20 [History Last Taken Unknown] torsemide 10 mg tablet 10 mg PO DAILY #30 tab 09/29/20 [Rx Last Taken Unknown] diazepam 5 mg tablet 5 mg PO QHS PRN #1 tab 11/03/20 [Rx Last Taken Unknown] oxycodone myristate 13.5 mg capsule sprinkle extend release 12hr(DON'T CRUSH) 13.5 mg PO BID ea 11/12/20 [History Last Taken Unknown] lisinopril 40 mg tablet 40 mg PO DAILY #90 tab 12/04/20 [Rx Last Taken Unknown] labetalol 200 mg tablet 200 mg PO BID #180 tab 02/10/21 [Rx Last Taken Unknown] glipizide 10 mg tablet, extended release 24 hr 10 mg PO DAILY #90 tab 04/23/21 [Rx Last Taken Unknown] insulin glargine 62 unit SC QHS 04/27/21 [History Last Taken Unknown] insulin lispro 24 unit SC TID 04/27/21 [History Last Taken Unknown] Allergy/AdvReac Type Severity Reaction Status Date / Time No Known Allergies Allergy Verified 04/27/21 20:29 Family History Mother Colon cancer Heart disease Hypertension Father Brain tumor CVA (cerebral vascular accident) Brother CVA (cerebral vascular accident) Diabetes Grandmother Parkinsons Other Alcoholism Angina at rest Arthritis Cancer FH: defects Lung cancer Seizures Surgical History H/O right heart catheterization History of basal cell carcinoma excision Social History Smoking Status: Former smoker how long ago did patient quit smokin alcohol intake: former substance use type: does not use what type of physical activity do you participate in: none additional social history: DOES NOT TAKE ASPIRIN DOES TAKE IBUPROFEN NEEDED ROS ROS Narrative GENERAL: chills, anorexia HEENT: denies headache, sinus congestion, RESPIRATORY: denies cough, sputum production, CARDIAC: denies chest pain, palpitations, orthopnea, GASTROINTESTINAL: denies abdominal pain, nausea, GENITOURINARY: denies dysuria, urgency, frequency, EXTREMITY: denies swelling MUSCULOSKELETAL:back pain NEUROLOGIC: denies focal numbness, weakness, HEMATOLOGIC: denies easy bruising INTEGUMENT: denies rashes PSYCHIATRIC: denies suicidal or homicidal ideation Vital Signs Vital Signs Vital Signs: 04/27/21 20:21 04/27/21 21:50 04/27/21 23:00 Temperature 98.8 F Temperature Source Temporal Pulse Rate 105 H 100 Respiratory Rate 16 20 H 18 Blood Pressure 175/127 H 187/75 H Blood Pressure Mean 143 112 Pulse Ox 91 95 98 Oxygen Delivery Method Room Air Nasal Cannula Nasal Cannula Oxygen Flow Rate (L/min) 2 2 04/28/21 01:00 04/28/21 05:00 04/28/21 10:10 Temperature Temperature Source Pulse Rate 101 H 105 H Respiratory Rate 16 16 18 Blood Pressure 182/67 H 188/64 H Blood Pressure Mean 105 105 Pulse Ox 97 99 96 Oxygen Delivery Method Nasal Cannula Nasal Cannula Nasal Cannula Oxygen Flow Rate (L/min) 2 2 2 Weight Weight: 120.3 kg Body Mass Index (BMI) 44.1 Physical Exam Narrative GENERAL: cooperative HEENT: Atraumatic; EYES; Anicteric, Normal Conjunctiva NECK; supple, normal thyroid, RESPIRATORY: Diminished to auscultation CARDIOVASCULAR: Regular S1 S2, GI: soft, normoactive bowel sounds, : No Renal angle tenderness; EXTREMITIES: No edema, no clubbing, MUSCULOSKELETAL: no muscle waisting NEURO: Awake; no lateralizing signs. SKIN: No Rash PSYCH; Flat affect Results Lab / Micro Data Result Diagrams: 04/27/21 21:43 04/27/21 21:43 Labs: Laboratory Results - last 24 hr 04/27/21 21:43: WBC 5.9, RBC 4.55, Hgb 14.1, Hct 44.1, MCV 96.9, MCH 31.0, MCHC 32.0, RDW Std Deviation 47.4 H, RDW Coeff of Eva 13.3, Plt Count 177, MPV 9.2, Immature Gran % (Auto) 1.000 H, Neut % (Auto) 65.2, Lymph % (Auto) 15.8 L, [place] % (Auto) 17.3 H, Eos % (Auto) 0.2, Baso % (Auto) 0.5, Absolute Neuts (auto) 3.9, Absolute Lymphs (auto) 0.94, Nucleated RBC % 0 04/27/21 21:43: Sodium 139, Potassium 4.4, Chloride 106, Carbon Dioxide 26.0, Anion Gap 7, BUN 23 H, Creatinine 0.99, Estim Creat Clear Calc 50.98, Est GFR (MDRD) Af Amer 72, Est GFR (MDRD) Non-Af 59 L, BUN/Creatinine Ratio 23.1 H, Glucose 288 H, Calcium 9.0 Micro: Microbiology 04/28/21 01:15 Nasal Secretion SARS-CoV-2 Antigen (Rapid) - Final SARS-CoV-2 (COVID 19) Radiology Impression Hip/Pelvis X-Ray 04/27/21 20:53 IMPRESSION: No acute osseous abnormality. Electronically Signed: Brennen Pathak MD at 23:10 EST Tel , Service support , Lumbar Spine X-Ray 04/27/21 22:23 IMPRESSION: Grade 2 degenerative anterolisthesis of L4 relative to L5 with severe facet arthrosis at L4-5 bilaterally. Electronically Signed: David Fonseca MD at 23:29 EST Tel , Service support , Chest X-Ray 04/28/21 04:43 IMPRESSION: No acute findings. Electronically Signed: Brennen Pathak MD at 5:48 EST Tel , Service support , Assessment & Plan Assessment/Plan (1) Fall from slip, trip, or stumble: (2) COVID-19: PLAN: Patient is a 65-year-old lady presented with progressive generalized weakness chills and low back pain. 1. Acute hypoxic respiratory insufficiency -Secondary to COVID-19 infection. Patient symptoms started a week prior to her admission. She was therefore started on Decadron for remdesivir 2. Physical deconditioning with chronic back pain - Requested for PT OT eval and clinical social work therapist to assist with discharge planning 3. Dyslipidemia -Patient is on statin therapy, continued at home dose 4. Hypertension - Blood pressure controlled, home medications continued with dose adjustment as needed 5. Diabetes mellitus type II -patient's oral hypoglycemics held. Placed on long acting insulin, Accu-Cheks a.c. and at bedtime and covered with sliding scale insulin 6. Degenerative joint disease with chronic back pain ?Patient was placed on pain regimen consisting of Tylenol 1000 mg every 6 hours gabapentin and OxyIR as needed 7. Chronic congestive heart failure with preserved ejection fraction ?Echo obtained on 11/24/2020 demonstrated EF of 55%. Patient is on torsemide did continue 8. Class III obesity with BMI of 44.2 ?Weight loss advised 9. DVT prophylaxis - On enoxaparin Advance planning; did discuss with the patient and family regarding advanced directives as well as CODE STATUS. Did explain the various scenarios involved ( FULL CODE, DNR CCA, DNR CCA with no intubation, and DNR CC and what each meant) patient elected to remain full code with CPR and intubation order was placed. Time spent on discussion 18 minutes. Charges/Coding Visit Charges Inpatient E&M: 12946 Init Hosp L3 Procedures Hospitalists Procedures: 98529 Advncd Care Plan 30 Min
[2021-04-28 11:20] LABS: Bedside Glucose 271 mg/dL (70-110)
--- NOTE | 2021-04-28 12:00 | ED.RN ---
called pharmacy to verify medications.
[2021-04-28 13:21] LABS: Fibrinogen 341 mg/dl (203-444)
[2021-04-28] MEDS: Acetaminophen 500 MG Tablet 1000 MG PO ×3 (13:26→23:45)
[2021-04-28] MEDS: dexAMETHasone 4 MG Tablet 6 MG PO (13:26)
[2021-04-28] MEDS: Insulin Lispro 100 UNIT/ML INSULN.PEN 24 UNIT SC (13:27)
[2021-04-28] MEDS: amLODIPine 5 MG Tablet PO (13:29)
[2021-04-28 13:41] LABS: D-Dimer Quantitative (DVT/PE) 0.82 FEU/ug/m (0.27-0.49)
[2021-04-28 13:43] LABS: Lactic Acid 0.7 mmol/L (0.4-1.9)
[2021-04-28 13:47] LABS: AST(SGOT) 36 U/L (15-37); Alanine Aminotransfer ALT/SGPT 32 U/L (13-56); Albumin, Serum 2.8 g/dL (3.2-5.0); Alkaline Phosphatase 57 U/L (45-117); Bilirubin, Direct 0.05 mg/dL (0.00-0.30); CPK Total, Creatine Kinase 231 U/L (26-192); Globulin 2.8 g/dL (2.2-4.2); LDH 355 U/L (84-246); Protein, Total 5.6 g/dL (6.4-8.2); Troponin-I HS 21 pg/mL (3.0-54.0)
[2021-04-28 13:53] LABS: Procalcitonin 0.26 ng/mL (0.00-0.09)
--- NOTE | 2021-04-28 15:15 | CM.ED ---
SOCIAL WORK Reason for Consult: Discharge Planning Patient with COVID-19 positive test result. Patient needing SNF. Informed patient [facility] able to accommodate COVID-19 positive patients. Patient in agreement with referral. Spoke with Laila with [facility]. Per Laila, not in network with [facility], however, has been able to accept patient's with [facility] as long as 5 facilities in network with [facility] has declined patient due to COVID-19 positive test result. TCU unable to accommodate patient. Call to [facility], will not accept COVID-19 positive patient. Call to [facility], will not accept COVID-19 positive patient. Call to [facility], will not accept COVID-19 positive patient. Call to [facility], will not accept COVID-19 positive patient. Referral faxed to Laila with [facility] along with the above list. Pending acceptance at this time. Handoff reported to Morelia JENSEN Plan: Pending acceptance to [facility] Rashel Higgins, FIBER DRIER OPERATOR, COMMERCIAL PRODUCTION EDITOR
[2021-04-28] MEDS: 0.9% Saline Lock 10 ML Syringe IV (15:35)
[2021-04-28] MEDS: Insulin Lispro 100 UNIT/ML INSULN.PEN SC ×2 (15:46→21:35)
[2021-04-28] MEDS: Cholecalciferol (VIT D3) 25 MCG TABLET (1,000 UNITS) 100 MCG PO (15:59)
[2021-04-28] MEDS: Furosemide 20 MG Tablet PO (15:59)
[2021-04-28] MEDS: Labetalol 200 MG Tablet PO ×2 (15:59→21:36)
[2021-04-28] MEDS: Multivitamins,Therapeutic Tablet 1 TABLET PO (16:00)
[2021-04-28] MEDS: Atorvastatin Calcium 20 MG Tablet PO (16:00)
[2021-04-28] MEDS: Lisinopril 40 MG Tablet PO (16:00)
[2021-04-28] MEDS: Ascorbic Acid 500 MG Tablet 1000 MG PO (16:00)
[2021-04-28] MEDS: oxyCODONE 5 MG Tablet 10 MG PO (16:02)
[2021-04-28] MEDS: Enoxaparin 40 MG/0.4 ML Syringe SC ×2 (16:02→21:36)
[2021-04-28 16:20] LABS: Bedside Glucose 226 mg/dL (70-110)
--- NOTE | 2021-04-28 17:50 | PCS.PANDOC ---
PANDEMIC DOCUMENTATION INITIATED: Date: 12/29/2020 Time: 190
[2021-04-29] VITALS (7 sets, daily range): BP systolic 155–178; BP diastolic 68–85; PULSE 87–98; RESP 18; TEMP 36.8–37.4; O2SAT 93–100
[2021-04-29 04:46] LABS: Bedside Glucose 268 mg/dL (70-110)
[2021-04-29] MEDS: Acetaminophen 500 MG Tablet 1000 MG PO ×2 (05:13→13:44)
[2021-04-29 07:03] LABS: Absolute Lymphocyte Count 0.67 X10^3/uL (0.83-4.51); Basophil# 0.01 X10^3/uL; Basophil% 0.2 % (0-1); Hematocrit 41.3 % (37-47); Hemoglobin 13.2 g/dL (12.0-15.0); Lymphocyte # 0.67 X10^3/ul (0.83-4.51); Lymphocyte % 12.5 % (19-41); Mean Corpuscular Hgb 30.6 pg (27.0-32.0); Mean Corpuscular Volume 95.8 fL (81-99); Mean Platelet Vol. 9.2 fl (6.2-12.0); Monocyte# 0.65 X10^3/uL; Monocyte% 12.1 % (0-10); NRBC Flagged by Analyzer 0 % (0-5); Neutrophil % 74.6 % (47-70); Platelet Count 178 K/mm3 (150-450); RBC Distribution Width CV 13.2 % (11.6-14.6); RBC Distribution Width SD 47.2 fl (35.1-43.9); Red Blood Count 4.31 M/mm3 (4.2-5.4); White Blood Count 5.4 K/mm3 (4.4-11.0)
--- NOTE | 2021-04-29 07:25 | PN.HOSP_ITS ---
Subjective Subjective Patient admitted with adult failure to thrive low back pain and positive Covid test. Currently not on supplemental oxygen. Plan is for patient to be discharged to snf facility once insurance precertification is obtained Objective Data Objective Data Vital Signs: Vital Signs Temp Pulse Resp BP Pulse Ox 98.2 F 87 18 159/70 H 96 04/29/21 01:46 04/29/21 01:46 04/29/21 01:46 04/29/21 01:46 04/29/21 01:46 Oxygen Flow Rate (L/min) 1 Oxygen Delivery Method Room Air Weight: 114.759 kg Body Mass Index (BMI) 42.0 Intake & Output: Intake and Output for Last 24 Hours 04/27/21 04/28/21 04/29/21 23:59 23:59 23:59 Intake Total 661.5 / 661.5 Output Total 200 / 200 Balance 461.5 / 461.5 Lab / Micro Data Result Diagrams: 04/29/21 06:16 04/29/21 06:16 Labs: Laboratory Results - last 24 hr 04/28/21 11:14: POC Glucose 271 H 04/28/21 13:00: Fibrinogen 341, D-Dimer Quant (PE/DVT) 0.82 H* 04/28/21 13:00: Total Bilirubin 0.50, Direct Bilirubin 0.05, AST 36, ALT 32, Alkaline Phosphatase 57, Lactate Dehydrogenase 355 H, Total Creatine Kinase 231 H, Troponin I High Sens 21, Total Protein 5.6 L, Albumin 2.8 L, Globulin 2.8 04/28/21 13:00: Lactic Acid 0.7 04/28/21 13:00: Procalcitonin 0.26 H 04/28/21 13:00: Alkaline Phosphatase Cancelled 04/28/21 15:45: POC Glucose 226 H 04/28/21 21:34: POC Glucose 268 H 04/29/21 06:16: WBC 5.4, RBC 4.31, Hgb 13.2, Hct 41.3, MCV 95.8, MCH 30.6, MCHC 32.0, RDW Std Deviation 47.2 H, RDW Coeff of Eva 13.2, Plt Count 178, MPV 9.2, I mmature Gran % (Auto) 0.600, Neut % (Auto) 74.6 H, Lymph % (Auto) 12.5 L, [place] % (Auto) 12.1 H, Eos % (Auto) 0.0, Baso % (Auto) 0.2, Absolute Neuts (auto) 4.0, Absolute Lymphs (auto) 0.67 L, Nucleated RBC % 0 Micro: Microbiology 04/28/21 20:02 Urine, Clean Catch Streptococcus pneumoniae Antigen (M - Final 04/28/21 20:02 Urine, Clean Catch Legionella Antigen - Final 04/28/21 01:15 Nasal Secretion SARS-CoV-2 Antigen (Rapid) - Final SARS-CoV-2 (COVID 19) Physical Exam Narrative GENERAL: cooperative HEENT: Atraumatic; EYES; Anicteric, Normal Conjunctiva NECK; supple, normal thyroid, RESPIRATORY: Diminished to auscultation CARDIOVASCULAR: Regular S1 S2, GI: soft, normoactive bowel sounds, : No Renal angle tenderness; EXTREMITIES: No edema, no clubbing, MUSCULOSKELETAL: no muscle waisting NEURO: Awake; no lateralizing signs. SKIN: No Rash PSYCH; Flat affect Assessment & Plan Assessment/Plan (1) Fall from slip, trip, or stumble: (2) COVID-19: PLAN: Patient is a 65-year-old lady presented with progressive generalized weakness chills and low back pain. 1. Acute hypoxic respiratory insufficiency -Secondary to COVID-19 infection. Patient symptoms started a week prior to her admission. She was therefore started on Decadron for remdesivir ?04/29/2021. Patient has been weaned off oxygen 2. Physical deconditioning with chronic back pain - Requested for PT OT eval and social welfare research worker to assist with discharge planning ?04/29/2021 awaiting insurance presentation prior to discharge to snf facility 3. Dyslipidemia -Patient is on statin therapy, continued at home dose 4. Hypertension - Blood pressure controlled, home medications continued with dose adjustment as needed 5. Diabetes mellitus type II -patient's oral hypoglycemics held. Placed on long acting insulin, Accu-Cheks a.c. and at bedtime and covered with sliding scale insulin 6. Degenerative joint disease with chronic back pain ?Patient was placed on pain regimen consisting of Tylenol 1000 mg every 6 hours gabapentin and OxyIR as needed ?04/29/2021; patient pain appears to be well controlled 7. Chronic congestive heart failure with preserved ejection fraction ?Echo obtained on 11/24/2020 demonstrated EF of 55%. Patient is on torsemide did continue 8. Class III obesity with BMI of 44.2 ?Weight loss advised 9. DVT prophylaxis - On enoxaparin Charges/Coding Visit Charges Inpatient E&M: 03545 Subs Hosp L2
[2021-04-29 07:36] LABS: AST(SGOT) 25 U/L (15-37); Alanine Aminotransfer ALT/SGPT 34 U/L (13-56); Albumin, Serum 2.9 g/dL (3.2-5.0); Alkaline Phosphatase 58 U/L (45-117); Anion Gap 7 (5-15); BUN 27 mg/dL (7-18); BUN/Creat Ratio 31.5 RATIO (10-20); Calcium,Total 8.6 mg/dL (8.5-10.1); Chloride 107 mmol/L (98-107); Creatinine, Serum 0.86 mg/dL (0.55-1.02); EST Glomerular Filtration Rate 71 mL/min (>60); Est Glom Filt Rate - Afr Amer 85 mL/min (>60); Estimated Creatinine Clearance 58.68 ml/min; Globulin 2.9 g/dL (2.2-4.2); Glucose 219 mg/dL (74-106); Magnesium 2.3 mg/dL (1.6-2.6); Protein, Total 5.8 g/dL (6.4-8.2); Sodium Level 140 mmol/L (136-145)
[2021-04-29 08:11] LABS: International Normalized Ratio 1.1; Prothrombin Time (Protime)PT. 13.2 SECONDS (11.7-14.9)
[2021-04-29] MEDS: Insulin Lispro 100 UNIT/ML INSULN.PEN 24 UNIT SC ×2 (08:15→11:59)
[2021-04-29] MEDS: Insulin Lispro 100 UNIT/ML INSULN.PEN SC ×2 (08:16→11:59)
[2021-04-29] MEDS: dexAMETHasone 4 MG Tablet 6 MG PO (08:33)
[2021-04-29] MEDS: Cholecalciferol (VIT D3) 25 MCG TABLET (1,000 UNITS) 100 MCG PO (08:34)
[2021-04-29] MEDS: Furosemide 20 MG Tablet PO (08:34)
[2021-04-29] MEDS: Ascorbic Acid 500 MG Tablet 1000 MG PO (08:34)
[2021-04-29] MEDS: Labetalol 200 MG Tablet PO (08:34)
[2021-04-29] MEDS: Atorvastatin Calcium 20 MG Tablet PO (08:34)
[2021-04-29] MEDS: Multivitamins,Therapeutic Tablet 1 TABLET PO (08:34)
[2021-04-29] MEDS: Enoxaparin 40 MG/0.4 ML Syringe SC (08:35)
[2021-04-29] MEDS: Lisinopril 40 MG Tablet PO (08:35)
[2021-04-29] MEDS: amLODIPine 5 MG Tablet PO (08:35)
--- NOTE | 2021-04-29 09:09 | CASEMGMT ---
Social Work Note CAMILA reviewed chart. CAMILA has tried 5 in network with [facility], all 5 are not able to accept pt due to pt being COVID+. CAMILA placed a call to Laila at [facility] and left message updating her that 5 SNF have denied pt due to pt being COVID+ and asked if [facility] can accept pt. CAMILA waiting for call back from Laila at [facility]. Plan: [facility] pending acceptance Morelia Alejo MANAGER PLUMBING, REHABILITATION CONSTRUCTION SPECIALIST
--- NOTE | 2021-04-29 09:22 | CASEMGMT ---
Addendum entered by Morelia Alejo 04/29/21 10:06: SW in to speak with pt. SW informed pt that [facility] cannot accept pt as they only take COVID+ pt's that are 10 days post positive test. SW informed pt that [facility] cannot accept anyone in isolation. Pt asked where she will go then. SW informed pt that she has been accepted to [facility] pending pre-cert. Pt states understanding, agreeable to [facility]. Plan: [facility] pending pre-cert Addendum entered by Morelia Alejo 04/29/21 09:37: CAMILA updated that pt mentioned going to [facility]. Pt is COVID+, tested positive for COVID yesterday 04/28/2021. CAMILA placed a call to [facility] and spoke with Natalya. Natalya states they can accept COVID pt's that are 10 days from post positive test/symptoms started. Natalya states they cannot accept any COVID+ pt's that are in isolation Pt just tested positive for COVID 04/28/2021 and is still currently in isolation. Pt will not be able to go to [facility]. CAMILA attempted twice to update pt. CAMILA will try again to update pt. Original Note: Social Work Note SW received email from Laila at [facility] stating they can accept pt. Since [facility] is out of network, they will need to wait for pre-cert. Plan: [facility] pending pre-cert Morelia Alejo ROD TAPE OPERATOR, BUS INFO CONSULTANT
--- NOTE | 2021-04-29 11:15 | CASEMGMT ---
Addendum entered by Morelia Alejo 04/29/21 11:32: CAMILA faxed OT evaluation to [facility]. Original Note: Social Work Note Lail[facility] at [facility] requesting updated PT/OT. SW reviewed chart, no updated PT/OT available at this time. SW will fax updated PT/OT when available. Plan: [facility] pending pre-cert Morelia Alejo GRAPPLE OPERATOR, RADAR ENGINEERING TEACHER
--- NOTE | 2021-04-29 13:50 | NURSING ---
in to round with patient, had conversation about dc plan. pt verbalized would like to be discharged. discussed alexa. pt to talk with [employer] social worker regarding her discharge plan.
--- NOTE | 2021-04-29 14:00 | CASEMGMT ---
Social Work Note CAMILA updated that pt is now stating she wants to return home and she can take care of herself. SW in to speak with pt. Pt confirms she wants to return home. Pt states that she feels safe at home, feels that she can take care of herself, states that her will be able to assist if needed. SW spoke with pt about HHC. Pt states she doesn't need that as she has a friend in [facility] who does HHC and her friend is willing to help her if needed too. Pt states that her friend is aware pt is COVID+. SW informed pt that if she gets home and would like HHC through her insurance she can call her PCP who can get HHC arranged for pt. Patient was provided a list of HHC providers including quality and resource use data and consistent with the patient?s preferred geographic region, medical needs, and insurance network. Pt states understanding, denied additional needs or concerns at this time. SW updated physician. SW updated Laila at [facility] to disregard referral. Plan: Home Morelia Alejo CARDING UTILITY TENDER, SLOT EDITOR
--- NOTE | 2021-04-29 14:12 | DS.PCM_ITS ---
Providers Date of Admission: 04/28/21 Primary Care Physician: Dr. Ho Landeros, DO Reason For Visit: BACK PAIN Diagnosis Discharge Diagnosis (1) Fall from slip, trip, or stumble: Status: Acute Code(s): W01.0XXA - Fall on same level from slipping, tripping and stumbling without subsequent striking against object, initial encounter (2) COVID-19: Status: Acute Code(s): U07.1 - COVID-19 Medications at Discharge Home Medications multivitamin 1 tab PO QAM 08/18/17 cholecalciferol (vitamin D3) 100 mcg (4,000 unit) capsule 100 mcg PO DAILY 02/06/20 ascorbic acid (vitamin C) 1,000 mg PO DAILY 02/15/20 rosuvastatin 10 mg tablet 10 mg PO DAILY #90 tab 03/04/20 [id number]-[id number] 333 mg-133 mg-5 mg tablet 1 tablet PO DAILY 08/05/20 amlodipine 5 mg tablet 5 mg PO DAILY #90 tablet 08/13/20 naproxen 250 mg tablet 250 mg PO BID PRN 09/29/20 torsemide 10 mg tablet 10 mg PO DAILY #30 tab 09/29/20 diazepam 5 mg tablet 5 mg PO QHS PRN #1 tab 11/03/20 oxycodone myristate 13.5 mg capsule sprinkle extend release 12hr(DON'T CRUSH) 13.5 mg PO BID ea 11/12/20 lisinopril 40 mg tablet 40 mg PO DAILY #90 tab 12/04/20 labetalol 200 mg tablet 200 mg PO BID #180 tab 02/10/21 glipizide 10 mg tablet, extended release 24 hr 10 mg PO DAILY #90 tab 04/23/21 insulin glargine 62 unit SC QHS 04/27/21 insulin lispro 24 unit SC TID 04/27/21 dexamethasone 6 mg PO DAILY #8 tab 04/29/21 Hospital Course Summary of Care Provided Minutes Spent on Discharge: 45 Hospital Course: 1. Acute hypoxic respiratory insufficiency -Secondary to COVID-19 infection. Patient symptoms started a week prior to her admission. She was therefore started on Decadron for remdesivir ?04/29/2021. Patient has been weaned off oxygen ?Patient did request to be discharged home. Was assessed for home oxygen prior to being discharged. Prescription was written for Decadron. She was also instructed to current time for total of 10 days from the onset of her symptoms. 2. Physical deconditioning with chronic back pain - Requested for PT OT eval and geriatric social work professor to assist with discharge planning ?04/29/2021 awaiting insurance presentation prior to discharge to [facility] 3. Dyslipidemia -Patient is on statin therapy, continued at home dose 4. Hypertension - Blood pressure controlled, home medications continued with dose adjustment as needed 5. Diabetes mellitus type II -patient's oral hypoglycemics held. Placed on long acting insulin, Accu-Cheks a.c. and at bedtime and covered with sliding scale insulin 6. Degenerative joint disease with chronic back pain ?Patient was placed on pain regimen consisting of Tylenol 1000 mg every 6 hours gabapentin and OxyIR as needed ?04/29/2021; patient pain appears to be well controlled 7. Chronic congestive heart failure with preserved ejection fraction ?Echo obtained on 11/24/2020 demonstrated EF of 55%. Patient is on torsemide did continue 8. Class III obesity with BMI of 44.2 ?Weight loss advised 9. DVT prophylaxis - On enoxaparin Physical Exam Narrative GENERAL: cooperative HEENT: Atraumatic; EYES; Anicteric, Normal Conjunctiva NECK; supple, normal thyroid, RESPIRATORY: Diminished to auscultation CARDIOVASCULAR: Regular S1 S2, GI: soft, normoactive bowel sounds, : No Renal angle tenderness; EXTREMITIES: No edema, no clubbing, MUSCULOSKELETAL: no muscle waisting NEURO: Awake; no lateralizing signs. SKIN: No Rash PSYCH; Flat affect Weight / BMI Weight Weight: 114.759 kg Body Mass Index (BMI) 42.0 ABG / Lab / Microbiology Data Result Diagrams: 04/29/21 06:16 04/29/21 06:16 Laboratory: Laboratory Results - last 24 hr 04/28/21 15:45: POC Glucose 226 H 04/28/21 21:34: POC Glucose 268 H 04/29/21 06:16: WBC 5.4, RBC 4.31, Hgb 13.2, Hct 41.3, MCV 95.8, MCH 30.6, MCHC 32.0, RDW Std Deviation 47.2 H, RDW Coeff of Eva 13.2, Plt Count 178, MPV 9.2, Immature Gran % (Auto) 0.600, Neut % (Auto) 74.6 H, Lymph % (Auto) 12.5 L, [place] % (Auto) 12.1 H, Eos % (Auto) 0.0, Baso % (Auto) 0.2, Absolute Neuts (auto) 4.0, Absolute Lymphs (auto) 0.67 L, Nucleated RBC % 0 04/29/21 06:16: PT 13.2, INR 1.1 04/29/21 06:16: Sodium 140, Potassium 4.0, Chloride 107, Carbon Dioxide 26.0, Anion Gap 7, BUN 27 H, Creatinine 0.86, Estim Creat Clear Calc 58.68, Est GFR (MDRD) Af Amer 85, Est GFR (MDRD) Non-Af 71, BUN/Creatinine Ratio 31.5 H, Glucose 219 H, Calcium 8.6, Magnesium 2.3, Total Bilirubin 0.40, AST 25, ALT 34, Alkaline Phosphatase 58, Total Protein 5.8 L, Albumin 2.9 L, Globulin 2.9, Albumin/Globulin Ratio 1.0 Microbiology: Microbiology 04/28/21 20:02 Urine, Clean Catch Streptococcus pneumoniae Antigen (M - Final 04/28/21 20:02 Urine, Clean Catch Legionella Antigen - Final 04/28/21 01:15 Nasal Secretion SARS-CoV-2 Antigen (Rapid) - Final SARS-CoV-2 (COVID 19) D/C Instructions Discharge Diet: No restrictions Discharge Activity: Return to Normal Activity Call your doctor if you observe: Fever of 101 or Higher, Shortness of breath, Fainting spells and Chest pain Additional Instructions: Patient to continue to current time for a minimum of 10 days from the onset of his symptoms Meaningful Use Info Meaningful Use Diagnoses (Choose all that apply): None applicable Discharge Plan Admission Admit Date/Time: 04/28/21 15:58 Attending Provider: Chaitanya Lopez Primary Care Provider: Ho Landeros Instructions Patient Instructions: Coronavirus Disease 2019 (COVID-19): Caring for Yourself or Others Discharge Orders/Prescriptions Prescriptions: New dexamethasone 4 mg Tablet 6 mg PO DAILY Qty: 8 RF: 0 Continued multivitamin tablet 1 tab PO QAM RF: 0 cholecalciferol (vitamin D3) 100 mcg (4,000 unit) capsule 100 mcg (4,000 unit) capsule 100 mcg PO DAILY RF: 0 [id number]-[id number]-zhsd 333-133-5 mg tablet 1 tablet PO DAILY RF: 0 naproxen 250 mg tablet 250 mg PO BID PRN (Reason: Pain) RF: 0 torsemide 10 mg tablet 10 mg PO DAILY Qty: 30 RF: 2 diazepam [Valium] 5 mg tablet 5 mg PO QHS PRN (Reason: anxiety) Qty: 1 RF: 0 labetalol 200 mg tablet 200 mg PO BID Qty: 180 RF: 3 ascorbic acid (vitamin C) 1,000 MG tablet 1,000 mg PO DAILY RF: 0 oxycodone myristate 13.5 mg cap,sprinkl,ER12hr(DONT CRUSH) 13.5 mg PO BID RF: 0 insulin lispro 100 unit/mL insulin pen 24 unit SC TID RF: 0 insulin glargine 100 unit/mL (3 mL) insulin pen 62 unit SC QHS RF: 0 rosuvastatin [Crestor] 10 mg tablet 10 mg PO DAILY Qty: 90 RF: 2 amlodipine 5 mg tablet 5 mg PO DAILY Qty: 90 RF: 2 lisinopril 40 mg tablet 40 mg PO DAILY Qty: 90 RF: 2 glipizide 10 mg tablet extended release 24hr 10 mg PO DAILY Qty: 90 RF: 1 Referrals / Follow Up: Ho Landeros DO [Primary Care Provider] - Within 2 Weeks Disposition Disposition (needs filled in before D/C Order can be placed): Home, Self Care Charges/Coding Visit Charges Inpatient E&M: 95697 Disch Hosp
[2021-04-29 19:41] LABS: Bedside Glucose 202 mg/dL (70-110)
[2021-04-29 19:41] LABS: Bedside Glucose 173 mg/dL (70-110)
== END 2021-04-29 16:24 | disposition home or self-care (01) | DRG 551 ==
LOC: ED 04-28 11:04 → MS3 04-28 12:30
PROVIDERS: Admitting Provider Internal Medicine; Emergency Provider Emergency Medicine; PCP Family Medicine; Visit Provider Internal Medicine
DX: M54.50 Low back pain, unspecified (principal); U07.1 COVID-19; Z68.41 Body mass index [BMI] 40.0-44.9, adult; I50.32 Chronic diastolic (congestive) heart failure; G89.29 Other chronic pain; R62.7 Adult failure to thrive; R26.2 Difficulty in walking, not elsewhere classified; W01.0XXA Fall on same level from slipping, tripping and stumbling without subsequent striking against object, initial encounter; Y92.009 Unspecified place in unspecified non-institutional (private) residence as the place of occurrence of the external cause; E11.9 Type 2 diabetes mellitus without complications; I11.0 Hypertensive heart disease with heart failure; E66.01 Morbid (severe) obesity due to excess calories; E78.5 Hyperlipidemia, unspecified; Z66 Do not resuscitate; M47.819 Spondylosis without myelopathy or radiculopathy, site unspecified; Z87.891 Personal history of nicotine dependence; Z80.0 Family history of malignant neoplasm of digestive organs; Z82.0 Family history of epilepsy and other diseases of the nervous system; Z86.73 Personal history of transient ischemic attack (TIA), and cerebral infarction without residual deficits; Z85.118 Personal history of other malignant neoplasm of bronchus and lung; Z82.3 Family history of stroke; Z85.828 Personal history of other malignant neoplasm of skin
CPT/HCPCS: 71045; 72100; 73502; 80048; 85025; 87426

== ENCOUNTER 2021-05-04 13:00 | Inpatient (IN) | payer MEDICARE, SELFPAY ==
[2021-05-04] VITALS (15 sets, daily range): BP systolic 117–160; BP diastolic 66–93; PULSE 93–129; RESP 18–35; TEMP 36.7–37.2; O2SAT 86–94; BMI 39.9; BMI 41.1
--- NOTE | 2021-05-04 13:46 | EKG12_ITS ---
Test Reason : Blood Pressure : / mmHG Vent. Rate : 117 BPM Atrial Rate : 117 BPM P-R Int : 130 ms QRS Dur : 086 ms QT Int : 332 ms P-R-T Axes : 024 -30 073 degrees QTc Int : 463 ms Sinus tachycardia Left axis deviation Low voltage QRS (Limb Leads) Poor R wave progression Anteroseptal DE, age undetermined, cannot be excluded Abnormal ECG Confirmed by DELVSI SOL, ISAAK ([id number]), manager editorial ASHTYN MONK ([id number]) on 05/06/2021 9:53:00 AM Referred By: YRIS/JOSEA NGEL Confirmed By:ISAAK EDMONDSON MD
[2021-05-04] MEDS: dexAMETHasone 4 MG/ML Vial 6 MG IV (14:31)
[2021-05-04 14:32] LABS: Hematocrit 48.2 % (37-47); Hemoglobin 15.6 g/dL (12.0-15.0); Mean Corp Hgb Conc 32.4 g/dL (32-36); Mean Corpuscular Hgb 30.4 pg (27.0-32.0); Mean Corpuscular Volume 93.8 fL (81-99); Mean Platelet Vol. 9.6 fl (6.2-12.0); POSITIVE COUNT YES; POSITIVE MORPHOLOGY YES; Platelet Count 222 K/mm3 (150-450); RBC Distribution Width SD 45.1 fl (35.1-43.9); Red Blood Count 5.14 M/mm3 (4.2-5.4); White Blood Count 21.2 K/mm3 (4.4-11.0)
[2021-05-04 14:33] LABS: Differential Indicated MANUAL DIFF
[2021-05-04 14:50] LABS: ALB/GLOB Ratio 0.6 RATIO (0.9-2.4); AST(SGOT) 62 U/L (15-37); Alanine Aminotransfer ALT/SGPT 38 U/L (13-56); Albumin, Serum 2.5 g/dL (3.2-5.0); Alkaline Phosphatase 85 U/L (45-117); BUN 26 mg/dL (7-18); BUN/Creat Ratio 15.7 RATIO (10-20); CPK Total, Creatine Kinase 650 U/L (26-192); Calcium,Total 8.9 mg/dL (8.5-10.1); Chloride 101 mmol/L (98-107); Creatinine, Serum 1.66 mg/dL (0.55-1.02); EST Glomerular Filtration Rate 33 mL/min (>60); Est Glom Filt Rate - Afr Amer 40 mL/min (>60); Globulin 3.9 g/dL (2.2-4.2); Glucose 275 mg/dL (74-106); Potassium 3.4 mmol/L (3.5-5.1); Protein, Total 6.4 g/dL (6.4-8.2); Sodium Level 139 mmol/L (136-145); Troponin-I HS 1062 pg/mL (3.0-54.0)
[2021-05-04 14:51] LABS: Anion Gap 9 (5-15)
[2021-05-04 14:56] LABS: Procalcitonin > 50.00 ng/mL (0.00-0.09)
[2021-05-04 14:57] LABS: D-Dimer Quantitative (DVT/PE) 5.12 FEU/ug/m (0.27-0.49)
[2021-05-04 15:06] LABS: Lactic Acid 3.8 mmol/L (0.4-1.9)
[2021-05-04 15:12] LABS: Lymphocyte 7 % (19-41); Metamyelocyte 9 % (0-1); Monocyte 5 % (0-10); Myelocyte 1 % (0-0); Neutrophil-Segmented 77 % (47-70); Platelet Estimate ADEQUATE (ADEQ); Promyelocyte 1 % (0-0); Red Cell Morphology NORM C+C NORMAL (NORM C&C); Total Cells Counted 100 (MANUAL DIFF)
[2021-05-04 15:13] LABS: Absolute Neutrophil Count 16.3 X10^3/uL (2.0-7.7)
--- NOTE | 2021-05-04 15:27 | NURSING ---
ICU KYLEIGH SEVERE SEPSIS, PNEUMONIA
[2021-05-04] MEDS: 0.9% Normal Saline 1,000 ML 1000 ML IV (15:31)
[2021-05-04] MEDS: Heparin Injection (Vial) 5,000 UNIT/ML VIAL 8000 UNIT IV (15:44)
--- NOTE | 2021-05-04 15:44 | NURSING ---
ICU 1
--- NOTE | 2021-05-04 15:46 | EX.ED.DYSGE1 ---
HPI History of Present Illness Chief Complaint: Back Narrative Narrative: Patient presenting for evaluation secondary to generalized illness. Patient has the recent history of being diagnosed with coronavirus on 04/28 with a hospital admission secondary to hypoxic respiratory failure and back pain and a functional decline. She did undergo treatment with Decadron and remdesivir. Patient apparently was discharged home, was not on supplemental oxygen, and suffered a fall out of her chair. She reports that she slid down onto the ground, is unsure of how long she spent on the ground was brought to the emergency department by EMS. Patient was noted to be hypoxic down into the 80s and tachycardic was placed on supplemental oxygen. Patient reports shortness of breath, moderate low back pain worse with palpation. She denies any bowel or bladder incontinence. Review of systems otherwise negative. [facility] Medical History Anxiety Arthritis Back pain Basal cell carcinoma of right lateral cheek Bilateral lower extremity edema Chronic pain Depression Hyperlipemia Hypertension Kidney failure Knee pain Mitral valve prolapse Neoplasm of skin of right cheek Neuropathy Ruptured disk Skin cancer Type 2 diabetes mellitus Vision problems Home Medications multivitamin 1 tab PO QAM 08/18/17 [History Last Taken 10/28/17] cholecalciferol (vitamin D3) 100 mcg (4,000 unit) capsule 100 mcg PO DAILY 02/06/20 [History Last Taken Unknown] ascorbic acid (vitamin C) 1,000 mg PO DAILY 02/15/20 [History Last Taken Unknown] rosuvastatin 10 mg tablet 10 mg PO DAILY #90 tab 03/04/20 [Rx Last Taken Unknown] wronvtn-[id number]-btro 333 mg-133 mg-5 mg tablet 1 tablet PO DAILY 08/05/20 [History Last Taken Unknown] amlodipine 5 mg tablet 5 mg PO DAILY #90 tablet 08/13/20 [Rx Last Taken Unknown] naproxen 250 mg tablet 250 mg PO BID PRN 09/29/20 [History Last Taken Unknown] torsemide 10 mg tablet 10 mg PO DAILY #30 tab 09/29/20 [Rx Last Taken Unknown] diazepam 5 mg tablet 5 mg PO QHS PRN #1 tab 11/03/20 [Rx Last Taken Unknown] oxycodone myristate 13.5 mg capsule sprinkle extend release 12hr(DON'T CRUSH) 13.5 mg PO BID ea 11/12/20 [History Last Taken Unknown] lisinopril 40 mg tablet 40 mg PO DAILY #90 tab 12/04/20 [Rx Last Taken Unknown] labetalol 200 mg tablet 200 mg PO BID #180 tab 02/10/21 [Rx Last Taken Unknown] glipizide 10 mg tablet, extended release 24 hr 10 mg PO DAILY #90 tab 04/23/21 [Rx Last Taken Unknown] insulin glargine 62 unit SC QHS 04/27/21 [History Last Taken Unknown] insulin lispro 24 unit SC TID 04/27/21 [History Last Taken Unknown] dexamethasone 6 mg PO DAILY #8 tab 04/29/21 [Rx Last Taken Unknown] Allergy/AdvReac Type Severity Reaction Status Date / Time No Known Allergies Allergy Verified 05/04/21 13:11 Family History Mother Colon cancer Heart disease Hypertension Father Brain tumor CVA (cerebral vascular accident) Brother CVA (cerebral vascular accident) Diabetes Grandmother Parkinsons Other Alcoholism Angina at rest Arthritis Cancer FH: defects Lung cancer Seizures Surgical History H/O right heart catheterization History of basal cell carcinoma excision Social History Smoking Status: Former smoker how long ago did patient quit smokin alcohol intake: former substance use type: does not use what type of physical activity do you participate in: none additional social history: DOES NOT TAKE ASPIRIN DOES TAKE IBUPROFEN NEEDED ROS ROS ED Constitutional Constitutional ED: Reports other Details: Generalized illness and weakness ENT ENT ED: Denies rhinorrhea Cardiovascular Cardiovascular: Denies chest pain Respiratory/Chest Respiratory/Chest: Reports cough and dyspnea Gastrointestinal Gastrointestinal: Denies abdominal pain, diarrhea, nausea or vomiting Genitourinary Genitourinary ED: Denies dysuria or hematuria Musculoskeletal Musculoskeletal: Reports back pain Integumentary Denies rash Neurologic Neurologic: Reports weakness Psychiatric Psychiatric: Denies depression Endocrine Endocrinology: Denies fatigue Allergic/Immunologic Allergic/Immunologic ED: Denies urticaria EXAM Physical Exam Const Vital Signs: 05/04/21 13:02 05/04/21 14:35 05/04/21 15:00 Temperature 98.1 F 98.1 F 99 F Temperature Source Temporal Temporal Oral Pulse Rate 129 H 120 H 123 H Respiratory Rate 22 H 35 H 19 H Blood Pressure 146/93 H 146/93 H 122/66 H Blood Pressure Mean 110 110 84 Pulse Ox 86 92 94 Oxygen Delivery Method Room Air Nasal Cannula Nasal Cannula Oxygen Flow Rate (L/min) 3 3 05/04/21 15:30 Temperature 99 F Temperature Source Oral Pulse Rate 123 H Respiratory Rate 19 H Blood Pressure 122/66 H Blood Pressure Mean 84 Pulse Ox 94 Oxygen Delivery Method Nasal Cannula Oxygen Flow Rate (L/min) 3 Positive well nourished and well developed Constitutional Narrative: Significantly ill-appearing 65-year-old female who appears older than stated age and is in respiratory discomfort General Appearance ED: well developed HEENT Reports dry mucous membranes Negative for trauma or tenderness Mouth ED: Yes dry mucous membranes Mouth: dry mucous membranes Eyes EOMs intact bilaterally Neck no lymphadenopathy, supple and no JVD Neck Narrative: No signs of midline tenderness or step-off Chest Wall inspection of chest normal Resp clear to auscultation bilaterally Resp Narrative: Patient is tachypneic without any retractions Cardio regular rhythm, no murmurs and peripheral pulses 2+ throughout Rate: other Other Details: Tachycardic, 2+ radial pulses GI normal to inspection, nondistended, normoactive bowel sounds, non-tender and no masses Palpation: soft Back/Spine normal to inspection Back/Spine Narrative: Tenderness palpation in the lumbar spine, no obvious step-offs noted Extremity normal to inspection General Extremety ED: Negative for tenderness Neuro oriented x3 and no sensory deficits noted Sensorium / Orientation: alert Motor Exam: strength 5/5 throughout Psych mental status grossly normal Skin no rashes or lesions noted MDM MDM MDM Narrative Medical decision making narrative: Patient presented secondary to a fall out of her chair. From a traumatic standpoint patient only really has back pain but the patient seems to have significant otherwise illness with hypoxia tachycardia and respiratory discomfort. Oxygen status did improve on supplemental nasal cannula. Patient was started on fluid resuscitation. Work-up shows patient to have a leukocytosis of 21,000 which is new for the patient. D-dimer is now elevated to 5.1 over a discharge D-dimer of 0.8. Patient has signs of acute kidney injury with elevation of her BUN and creatinine up to 1.6. Patient's lactic acid was noted to be elevated to almost 4. Troponin was pathologically elevated at 1000, CRP was 189, pro calcitonin was undetectable at greater than 50,000. Patient was started on aggressive fluid resuscitation. Under the supposition that the patient likely has an element of severe sepsis at this point. Patient was given vancomycin and Zosyn. I discussed the patient on the phone with the hospitalist, patient will be admitted to the ICU. Lab Data Labs: Laboratory Results - last 24 hr 05/04/21 05/04/21 05/04/21 14:20 14:20 14:20 WBC 21.2 H RBC 5.14 Hgb 15.6 H Hct 48.2 H MCV 93.8 MCH 30.4 MCHC 32.4 RDW Std Deviation 45.1 H RDW Coeff of Eva 13.0 Plt Count 222 MPV 9.6 Neut % (Auto) Not Reportable Absolute Neuts (auto) 16.3 H Absolute Lymphs (auto) 1.50 Total Counted 100 Neutrophils % (Manual) 77 H Lymphocytes % (Manual) 7 L Monocytes % (Manual) 5 Metamyelocytes % 9 H Myelocytes % 1 H Promyelocytes % 1 H Diff Path Review May foll Platelet Estimate ADEQUATE RBC Morphology NORM C+C D-Dimer Quant (PE/DVT) 5.12 H* Sodium 139 Potassium 3.4 L Chloride 101 Carbon Dioxide 29.0 Anion Gap 9 BUN 26 H Creatinine 1.66 H Estim Creat Clear Calc 30.40 Est GFR (MDRD) Af Amer 40 L Est GFR (MDRD) Non-Af 33 L BUN/Creatinine Ratio 15.7 Glucose 275 H Lactic Acid Calcium 8.9 Total Bilirubin 0.50 AST 62 H ALT 38 Alkaline Phosphatase 85 Total Creatine Kinase 650 H Troponin I High Sens 1062 H* C-React Prot Ext Range 189.00 H Total Protein 6.4 Albumin 2.5 L Globulin 3.9 Albumin/Globulin Ratio 0.6 L Procalcitonin 05/04/21 05/04/21 14:20 14:20 WBC RBC Hgb Hct MCV MCH MCHC RDW Std Deviation RDW Coeff of Eva Plt Count MPV Neut % (Auto) Absolute Neuts (auto) Absolute Lymphs (auto) Total Counted Neutrophils % (Manual) Lymphocytes % (Manual) Monocytes % (Manual) Metamyelocytes % Myelocytes % Promyelocytes % Diff Path Review Platelet Estimate RBC Morphology D-Dimer Quant (PE/DVT) Sodium Potassium Chloride Carbon Dioxide Anion Gap BUN Creatinine Estim Creat Clear Calc Est GFR (MDRD) Af Amer Est GFR (MDRD) Non-Af BUN/Creatinine Ratio Glucose Lactic Acid 3.8 H* Calcium Total Bilirubin AST ALT Alkaline Phosphatase Total Creatine Kinase Troponin I High Sens C-React Prot Ext Range Total Protein Albumin Globulin Albumin/Globulin Ratio Procalcitonin > 50.00 H Critical Care Time Critical care time (excluding procedures): 30-74 minutes (57), Including time spent:, Discussing w/Patient &/or Family/[employer], Discussing w/Consultants, Arranging Admission or Transfer and Performing Direct Patient Care at Bedside Discharge Plan Triage Chief Complaint: Back ED Provider: Sánchez Gaona Dx/Rx/DC Orders Clinical Impression: Severe sepsis, Pneumonia, Acute kidney injury Primary Care Provider: Ho Landeros Disposition Disposition: Acute Care [facility]
[2021-05-04 15:59] LABS: International Normalized Ratio 1.3; Prothrombin Time (Protime)PT. 15.1 SECONDS (11.7-14.9)
--- NOTE | 2021-05-04 17:19 | RAD_ITS ---
STUDY: X-RAY CHEST REASON FOR EXAM: Female, 65 years old. Cough TECHNIQUE: Frontal view COMPARISON: 04/28/2021 FINDINGS: The lungs are not fully expanded. Patchy infiltrates of the lungs, right more than left. Normal size heart. Normal mediastinum and dennis. Normal visualized pulmonary arteries. Normal visualized aortic arch and descending thoracic aorta. Degenerative changes of the thoracic spine. Normal visualized ribs, clavicles, and shoulders. There is no demonstrated abnormality of the visualized soft tissue structures of the upper abdomen. RAD/Chest 1 View (Portable) IMPRESSION: Bilateral patchy infiltrates. Electronically Signed: Rogerio Holbrook DO at 20:26 EST Tel [phone], Service support ,
--- NOTE | 2021-05-04 17:46 | PCM.HP.STD ---
HPI - General General Date of Admission: 05/04/21 Date of Service: 05/04/21 Chief Complaint: Fall/weakness HPI Narrative MICHELE OBRIEN, is a 65 F who presented to the emergency department [facility] on 05/04/2021 after falling out of her chair at home. She reported that she slid down to the ground but is unsure how long she was spent on the ground. When EMS arrived she was noted to be hypoxic with her sats in the 80s and was tachycardic. She was placed on supplemental oxygen at that time and brought to the emergency department. She had a recent admission from 04/28-04/29 secondary to low back pain and functional decline. She was to be undergoing placement but found to be Covid positive and was able to be discharged home on room air on 04/29/2021. She has not been vaccinated for COVID-19. Today she reported shortness of breath, moderate low back pain and cough. She was given Decadron at discharge and is still taking this. She evidently had an oxygen requirement prior to discharge but was assessed prior to discharge and did not need oxygen. She was treated with remdesivir x1 dose. Her vital signs today on presentation show tachycardia. She is afebrile and her blood pressures are within normal range. She has tachypnea with respiratory rate from 19-35 and her oxygen saturations were 86% on room air. She was placed on 3 L nasal cannula with improvement to sats to 92 to 94%. Her CBC showed a white count of 21.2 with a significant left shift and a lymphopenia. Her coags were within normal limits. A D-dimer was elevated at 5.12. Her CMP shows mild hypokalemia with a potassium of 3.4, and elevated BUN and creatinine at 26 and 1.66 respectively. She does not have an elevated serum creatinine at baseline. Her serum glucose was 275. Her lactic acid was 3.8 and her LFTs were normal other than a mildly elevated AST. Her CK was elevated at 650. Her troponin was elevated at 1062. Her inflammatory markers were significantly elevated. She had a procalcitonin of greater than 50. Given concerns for sepsis she was started on IV antibiotics with vancomycin and Zosyn given appropriate fluid boluses. [facility] Medical History Anxiety Arthritis Back pain Basal cell carcinoma of right lateral cheek Bilateral lower extremity edema Chronic pain Depression Hyperlipemia Hypertension Kidney failure Knee pain Mitral valve prolapse Neoplasm of skin of right cheek Neuropathy Ruptured disk Skin cancer Type 2 diabetes mellitus Vision problems Home Medications multivitamin 1 tab PO QAM 08/18/17 [History Last Taken 05/04/21] ascorbic acid (vitamin C) 1,000 mg PO DAILY 02/15/20 [History Last Taken 05/04/21] tnsffhp-trcxdgzup-nasx 333 mg-133 mg-5 mg tablet 1 tablet PO DAILY 08/05/20 [History Last Taken 05/04/21] naproxen 250 mg tablet 250 mg PO BID PRN 09/29/20 [History Last Taken 05/04/21] diazepam 5 mg tablet 5 mg PO QHS PRN #1 tab 11/03/20 [Rx Last Taken 05/03/21] oxycodone myristate 13.5 mg capsule sprinkle extend release 12hr(DON'T CRUSH) 13.5 mg PO BID ea 11/12/20 [History Last Taken 05/04/21] labetalol 200 mg tablet 200 mg PO BID #180 tab 02/10/21 [Rx Last Taken 05/04/21] insulin glargine 62 unit SC QHS 04/27/21 [History Last Taken 05/03/21] insulin lispro 24 unit SC TID 04/27/21 [History Last Taken 05/04/21] amlodipine 5 mg PO DAILY 05/04/21 [History Last Taken 05/04/21] cholecalciferol (vitamin D3) 100 mcg PO DAILY 05/04/21 [History Last Taken 05/04/21] dexamethasone 6 mg PO DAILY 05/04/21 [History Last Taken 05/04/21] glipizide 10 mg PO DAILY 05/04/21 [History Last Taken 05/04/21] lisinopril 40 mg PO DAILY 05/04/21 [History Last Taken 05/04/21] rosuvastatin [Crestor] 10 mg PO DAILY 05/04/21 [History Last Taken Unknown] tizanidine 4 mg PO DAILY 05/04/21 [History Last Taken 05/04/21] torsemide 10 mg PO DAILY 05/04/21 [History Last Taken Unknown] Allergy/AdvReac Type Severity Reaction Status Date / Time No Known Allergies Allergy Verified 05/04/21 13:11 Family History Mother Colon cancer Heart disease Hypertension Father Brain tumor CVA (cerebral vascular accident) Brother CVA (cerebral vascular accident) Diabetes Grandmother Parkinsons Other Alcoholism Angina at rest Arthritis Cancer FH: defects Lung cancer Seizures Surgical History H/O right heart catheterization History of basal cell carcinoma excision Social History Smoking Status: Former smoker how long ago did patient quit smokin alcohol intake: former substance use type: does not use what type of physical activity do you participate in: none additional social history: DOES NOT TAKE ASPIRIN DOES TAKE IBUPROFEN NEEDED ROS Constitutional Constitutional: Reports anorexia, chills, fatigue, malaise and weakness; Denies change in weight, fever(s), night sweats or other Eyes Eyes: Denies blurry vision, change in eye color, change in vision, discharge from eye(s), double vision, erythema, eye pain, loss of vision or other ENT HEENT: Denies abnormal hearing, dysphagia, ear pain, epistaxis, headache(s), hearing loss, nasal congestion, nasal discharge, post nasal drip, sinus pressure, sore throat or other Cardiovascular Cardiovascular: Reports dyspnea on exertion; Denies chest pain, claudication, edema, lightheadedness, orthopnea, palpitations, paroxysmal nocturnal dyspnea, rapid heart rate, syncope or other Respiratory/Chest Respiratory/Chest: Reports cough, dyspnea, shortness of breath at rest and shortness of breath with exertion; Denies excessive phlegm production, hemoptysis, productive cough, wheezing or other Gastrointestinal Gastrointestinal: Denies abdominal pain, coffee ground emesis, constipation, diarrhea, dyspepsia, hematemesis, hematochezia, loose stools, melena, nausea, vomiting or other Genitourinary Genitourinary: Denies burning urination, difficulty urinating, dysuria, hematuria, nocturia, urinary frequency, urinary hesitancy, urinary incontinence, urinary urgency or other Musculoskeletal Musculoskeletal: Reports myalgias; Denies arthralgias, back pain, joint pain, joint stiffness, joint swelling, neck pain or other Neurologic Neurologic: Denies abnormal gait, abnormal speech, confusion, disequilibrium, dizziness, focal weakness, headache(s), numbness, paresthesias, seizure-like activity, seizures, syncope, tingling, tremor(s) or other Psychiatric Psychiatric: Denies anxiety, depression, homicidal ideation, suicidal ideation or other Endocrine Endocrinology: Denies change in body appearance, cold intolerance, excessive sweating, heat intolerance, polydipsia, polyuria or other Hematologic/Lymphatic Hematologic/Lymphatic: Denies anemia, easy bleeding, easy bruising, lymphadenopathy or other Allergic/Immunologic Allergic/Immunologic: Denies rhinitis, hives, eczemia, asthma or other Vital Signs Vital Signs Vital Signs: 05/04/21 13:02 05/04/21 14:35 05/04/21 15:00 Temperature 98.1 F 98.1 F 99 F Temperature Source Temporal Temporal Oral Pulse Rate 129 H 120 H 123 H Respiratory Rate 22 H 35 H 19 H Blood Pressure 146/93 H 146/93 H 122/66 H Blood Pressure [BP] Blood Pressure Mean 110 110 84 Blood Pressure Mean [BP] Blood Pressure Source Blood Pressure Source [BP] Blood Pressure Position Blood Pressure Position [BP] Blood Pressure Location Blood Pressure Location [BP] Pulse Ox 86 92 94 Oxygen Delivery Method Room Air Nasal Cannula Nasal Cannula Oxygen Flow Rate (L/min) 3 3 05/04/21 15:30 05/04/21 16:00 05/04/21 17:07 Temperature 99 F 99 F 98.9 F Temperature Source Oral Oral Temporal Pulse Rate 123 H 123 H 119 H Respiratory Rate 19 H 19 H 28 H Blood Pressure 122/66 H 122/66 H 117/90 H Blood Pressure [BP] 136/77 H Blood Pressure Mean 84 84 99 Blood Pressure Mean [BP] 96 Blood Pressure Source Monitor Blood Pressure Source [BP] Monitor Blood Pressure Position Sitting Blood Pressure Position [BP] Semi-Fowlers Blood Pressure Location Right Arm Blood Pressure Location [BP] Right Arm Pulse Ox 94 94 89 Oxygen Delivery Method Nasal Cannula Nasal Cannula Nasal Cannula Oxygen Flow Rate (L/min) 3 3 6 Weight Weight: 112.3 kg Body Mass Index (BMI) 41.1 Physical Exam Const alert and oriented x3 Constitutional Narrative: Upper middle-aged morbidly obese white female who is lying in bed with nursing at bedside, appears toxic, alert and oriented x3 at this time, mild dyspnea with conversation General Appearance: cooperative HEENT normocephalic, head/scalp atraumatic and hearing grossly normal bilaterally HEENT Narrative: Mucous membranes are dry, Mallampati is 3, no thrush Eyes PERRL, EOMs intact bilaterally and conjunctivae normal Eyes Narrative: No scleral icterus Neck no lymphadenopathy, supple, no JVD and no carotid bruits Neck Narrative: Trachea midline, no thyroid enlargement Resp no retractions, no use of accessory muscles and clear to auscultation bilaterally Resp Narrative: Diffusely diminished Auscultation: Negative for crackles, rales, rhonchi or wheezes Cardio regular rhythm, S1 normal heart sound, S2 normal heart sound, no murmurs, no rub, no gallops, no clicks and no JVD Cardio Narrative: Tachycardic GI normal to inspection, nondistended, normoactive bowel sounds, soft to palpation, non-tender and non-distended Extremity no clubbing, cyanosis or edema Peripheral Pulses: Yes pulses 2+ throughout Skin no rashes or lesions noted, no wounds, skin turgor normal, no jaundice, no petechiae and no mottling Neuro oriented x3, CN's II-XII intact bilaterally, moves all extremities and no focal motor deficits Neuro Narrative: Generalized weakness Sensorium / Orientation: awake and alert Speech: speech normal Psych affect normal Results Lab / Micro Data Attestation: I reviewed the patient's lab results. Result Diagrams: 05/04/21 14:20 05/04/21 14:20 Labs: Laboratory Results - last 24 hr 05/04/21 14:20: WBC 21.2 H, RBC 5.14, Hgb 15.6 H, Hct 48.2 H, MCV 93.8, MCH 30.4, MCHC 32.4, RDW Std Deviation 45.1 H, RDW Coeff of Eva 13.0, Plt Count 222, MPV 9.6, Neut % (Auto) Not Reportable, Absolute Neuts (auto) 16.3 H, Absolute Lymphs (auto) 1.50, Total Counted 100, Neutrophils % (Manual) 77 H, Lymphocytes % (Manual) 7 L, Monocytes % (Manual) 5, Metamyelocytes % 9 H, Myelocytes % 1 H, Promyelocytes % 1 H, Diff Path Review May foll, Platelet Estimate ADEQUATE, RBC Morphology NORM C+C 05/04/21 14:20: D-Dimer Quant (PE/DVT) 5.12 H* 05/04/21 14:20: Sodium 139, Potassium 3.4 L, Chloride 101, Carbon Dioxide 29.0, Anion Gap 9, BUN 26 H, Creatinine 1.66 H, Estim Creat Clear Calc 30.40, Est GFR (MDRD) Af Amer 40 L, Est GFR (MDRD) Non-Af 33 L, BUN/Creatinine Ratio 15.7, Glucose 275 H, Calcium 8.9, Total Bilirubin 0.50, AST 62 H, ALT 38, Alkaline Phosphatase 85, Total Creatine Kinase 650 H, Troponin I High Sens 1062 H*, C-React Prot Ext Range 189.00 H, Total Protein 6.4, Albumin 2.5 L, Globulin 3.9, Albumin/Globulin Ratio 0.6 L 05/04/21 14:20: Lactic Acid 3.8 H* 05/04/21 14:20: Procalcitonin > 50.00 H 05/04/21 15:40: PT 15.1 H, INR 1.3, APTT 29.0 Micro: Microbiology 05/04/21 14:25 Nasal Secretion SARS-CoV-2 Antigen (Rapid) - Final SARS-CoV-2 (COVID 19) Assessment & Plan Assessment/Plan (1) Acute respiratory failure with hypoxia: (2) COVID-19: (3) Sepsis: (4) Leukocytosis: (5) Elevated d-dimer: (6) Hypokalemia: (7) TELMA (acute kidney injury): (8) Lactic acidosis: (9) NSTEMI, initial episode of care: PLAN: Sepsis -Suspect bacterial infection on top of viral pneumonia -Infectious work-up in progress -Procalcitonin is greater than 50 -White count is elevated at 21,000 -Continue vancomycin as initiated in the emergency department -Fluid boluses at 30 cc/kg body weight have been dosed but will hold off in any further fluids unless blood pressure becomes problematic or p.o. intake is an adequate with Covid diagnosis Acute hypoxic respiratory failure secondary to COVID-19/suspected pulmonary embolism -Exact onset of symptoms is unclear -Per documentation it states that she was tested for clearance but asymptomatic on 04/28/2021 -Patient has 4 more days of Decadron -Received only 1 day of remdesivir--> will start day 1 of 5 -Pulmonary toilet -Prone lying as able -Consult pulmonary medicine Elevated D-dimer -Suspect acute PE -Start heparin drip -Unable to perform CT at this time secondary to TELMA -If renal function improves may be able to obtain CTA tomorrow NSTEMI -Unclear at this time if it is type I or type II -EKG shows no changes consistent with acute ischemia -Troponin elevation may be related to acute PE -Continue heparin drip -Start aspirin -Consult cardiology -Check echocardiogram Lactic acidosis -May be related to sepsis versus acute pulmonary embolism versus acute hypoxic respiratory failure -Treatment as above -Repeat Acute kidney injury -Baseline serum creatinine is 0.8-1 -Current serum creatinine is 1.66 -Fluid boluses given--> overall 3-1/2 L -We will hold off on any additional fluid at this time -Avoid nephrotoxin -Repeat BMP in a.m. -Hold home diuretics/lisinopril -CK is mildly elevated although I dissipate this is more related to her troponin elevation and rhabdo Hypokalemia -40 mEq p.o. potassium replacement -Repeat BMP in a.m. -Check magnesium in a.m. Low back pain -As needed pain medication Hypertension -Hold home medications at this time -As needed labetalol is available -Monitor blood pressures DM-2 -Patient is typically on Levemir 62 units at at bedtime and lispro 24 units 3 times daily -Hold lispro as p.o. intake is unclear at this time -We will continue Lantus 35 units twice daily -Anticipate elevated blood sugars with Decadron use -SSI -Accu-Cheks -Carb controlled diet Hyperlipidemia -Continue rosuvastatin DVT prophylaxis -Heparin drip CODE STATUS -Full code Charges/Coding Visit Charges Inpatient E&M: 23974 Init Hosp L3
[2021-05-04 18:28] LABS: Reflex Lactate? Y
[2021-05-04 19:30] LABS: Lactic Acid 1.8 mmol/L (0.4-1.9)
[2021-05-04] MEDS: Lactated Ringers 1,000 ML 999 ML IV ×2 (19:40→21:13)
[2021-05-04] MEDS: Potassium Chloride Oral Tablet 20 MEQ 40 MEQ PO (19:47)
[2021-05-04] MEDS: Insulin Lispro 100 UNIT/ML INSULN.PEN SC (19:47)
--- NOTE | 2021-05-04 19:48 | PCM.RX.CS ---
Consult Pharmacy has been consulted to manage selected antiobiotic: Vancomycin Type of Consult: New start Suspected Infection: Sepsis Prior Doses of Antibiotics Received/Current Regimen: 1750MG IN ER 05/04/21 @ 1734 Labs: Sodium 139 mmol/L (136-145) 05/04/21 14:20 Potassium 3.4 mmol/L (3.5-5.1) L 05/04/21 14:20 Chloride 101 mmol/L (98-107) 05/04/21 14:20 Carbon Dioxide 29.0 mmol/L (21.0-32.0) 05/04/21 14:20 Anion Gap 9 (5-15) 05/04/21 14:20 BUN 26 mg/dL (7-18) H 05/04/21 14:20 Creatinine 1.66 mg/dL (0.55-1.02) H 05/04/21 14:20 Est GFR (MDRD) Af Amer 40 mL/min (>60) L 05/04/21 14:20 Est GFR (MDRD) Non-Af 33 mL/min (>60) L 05/04/21 14:20 BUN/Creatinine Ratio 15.7 RATIO (10-20) 05/04/21 14:20 Glucose 275 mg/dL (74-106) H 05/04/21 14:20 Microbiology: Microbiology 05/04/21 14:25 Nasal Secretion SARS-CoV-2 Antigen (Rapid) - Final SARS-CoV-2 (COVID 19) Weight used for dosin.7 kg Estimated Creatinine Clearance: 30.4 Goal Trough: 15-20 mcg/mL Pharmacy Plan for Drug DosinMG every 24 hours starting 05/05/21 @ 1730 Pharmacy Service will continue to monitor and adjust dosing as required. Follow-Up Labs: Trough Vancomycin Labs to be done on [date and time ordered]: 05/07/21 1700
[2021-05-04 20:16] LABS: Bedside Glucose 324 mg/dL (70-110)
[2021-05-04 20:17] LABS: Mucous, Urine 0 SEEN /hpf (<or=2+)
[2021-05-04 20:20] LABS: Troponin-I HS 948 pg/mL (3.0-54.0)
[2021-05-04 20:37] LABS: Color, Urine Yellow (Yellow); Glucose, Dipstick Normal (Normal); Ketone-Dipstick 15 mg/dl (Negative); Leukocyte Esterase-Dipstick 25 /ul (Negative); Nitrite-Dipstick Positive (Negative); Occult Blood-Urine 150 /ul (Negative); Protein-Dipstick 500 mg/dl (Negative); Urine Bilirubin Dipstick Negative (Negative); Urine Clarity Sl. Cloudy (Clear); Urine Urobilinogen Normal (Normal)
[2021-05-04 20:43] LABS: Troponin-I HS 936 pg/mL (3.0-54.0)
[2021-05-04 20:45] LABS: White Blood Cells 10-25 SEEN /hpf (0-5)
[2021-05-04 20:46] LABS: Bacteria 3+ /hpf (None Seen)
[2021-05-04 20:48] LABS: Calcium Oxalate Crystals Ur RARE /hpf (<or=2+); Red Blood Cells-Urine 0-5 SEEN /hpf (0-5); Squamous Epithelial Cells - UA 0-5 SEEN /hpf (5-10)
[2021-05-04 21:23] LABS: M R Staph aureus DNA By PCR Negative (Negative); Probe Check PASS; Specimen Processing Control PASS
[2021-05-04] MEDS: 0.9% Saline Lock 10 ML Syringe IV (21:48)
[2021-05-04 23:03] LABS: Partial Thromboplast Time > 250.0 Seconds (24.1-36.2)
--- NOTE | 2021-05-04 23:04 | NURSING ---
heparin drip off ptt greater 250
[2021-05-05] VITALS (25 sets, daily range): BP systolic 94–167; BP diastolic 53–82; PULSE 79–106; RESP 16–27; TEMP 36.4–38.1; O2SAT 85–97
[2021-05-05] MEDS: Labetalol 200 MG Tablet PO ×3 (00:05→22:28)
--- NOTE | 2021-05-05 05:55 | ECHOD_ITS ---
Version 2 Reason For Study: OTHER Procedure This was a 2D Doppler, Color Flow transthoracic echocardiogram. The study was technically difficult. The study was technically limited. Exam performed portable in ICU/CCU. The exam was abbreviated due to the COVID 19 protocol. Left Ventricle Normal LV size. Mild concentric left ventricular hypertrophy. Left ventricular systolic function is normal. The estimated ejection fraction is 55 %. Stage 1 diastolic dysfunction. No regional wall motion abnormalities noted. Right Ventricle Normal RV size. Normal systolic function. Atria Normal left atrium. Normal right atrium. Mitral Valve Mitral valve not well visualized. Tricuspid Valve The tricuspid valve is not well visualized. Mild tricuspid valve insufficiency. Pulmonary artery systolic pressure is 24 mmHg. Aortic Valve The aortic valve is not well visualized. Pulmonic Valve The pulmonic valve is not well visualized. Great Vessels Normal aortic root. Pericardium/Pleural No pericardial effusion. MMode/2D Measurements & Calculations LVIDd: 3.8 cm IVSd: 1.3 cm Ao root diam: 3.0 cm LVIDs: 2.9 cm LVPWd: 1.3 cm RVDd: 2.9 cm FS: 24.7 % LAV(MOD-bp): 51.2 ml LA A4 area: 17.6 cm2 LA dimension(2D): 3.9 cm LAV(MOD-bp) Indexed: 23.4 ml/m2 LAV(MOD-sp2): 47.4 ml LAV(MOD-sp4): 50.1 ml Doppler Measurements & Calculations MV E max brigid: 47.9 cm/sec Ao V2 max: 117.1 cm/sec LV V1 max: 86.8 cm/sec MV A max brigid: 69.7 cm/sec Ao max P.5 mmHg LV V1 max P.0 mmHg MV E/A: 0.69 PA V2 max: 91.3 cm/sec TR max brigid: 226.6 cm/sec TR max P.5 mmHg ECHO/Echo Complete Interpretation Summary Normal LV size. Left ventricular systolic function is normal. The estimated ejection fraction is 55 %. Stage 1 diastolic dysfunction. Mild concentric left ventricular hypertrophy. The study was technically difficult. Ordering Physician: Lisa Solares Referring Physician: Ho Landeros Performed By: Taylor Verduzco, SUHA, RVT
[2021-05-05 07:12] LABS: Absolute Lymphocyte Count 1.23 X10^3/uL (0.83-4.51); Absolute Neutrophil Count 13.7 X10^3/uL (2.0-7.7); Basophil# 0.04 X10^3/uL; Basophil% 0.2 % (0-1); Hematocrit 39.4 % (37-47); Hemoglobin 12.6 g/dL (12.0-15.0); Lymphocyte # 1.23 X10^3/ul (0.83-4.51); Lymphocyte % 7.7 % (19-41); Mean Corpuscular Hgb 30.3 pg (27.0-32.0); Mean Corpuscular Volume 94.7 fL (81-99); Mean Platelet Vol. 9.8 fl (6.2-12.0); Monocyte# 0.61 X10^3/uL; Monocyte% 3.8 % (0-10); NRBC Flagged by Analyzer 0 % (0-5); Neutrophil # 13.68 X10^3/uL (2.7-7.7); Neutrophil % 85.4 % (47-70); POSITIVE MORPHOLOGY YES; Platelet Count 194 K/mm3 (150-450); RBC Distribution Width CV 13.5 % (11.6-14.6); RBC Distribution Width SD 47.9 fl (35.1-43.9); Red Blood Count 4.16 M/mm3 (4.2-5.4)
[2021-05-05 07:17] LABS: Differential Indicated SCAN CRITERIA MET
[2021-05-05 07:33] LABS: ALB/GLOB Ratio 0.5 RATIO (0.9-2.4); AST(SGOT) 60 U/L (15-37); Alanine Aminotransfer ALT/SGPT 36 U/L (13-56); Albumin, Serum 1.9 g/dL (3.2-5.0); Alkaline Phosphatase 72 U/L (45-117); Anion Gap 10 (5-15); BUN 27 mg/dL (7-18); BUN/Creat Ratio 19.4 RATIO (10-20); Chloride 106 mmol/L (98-107); Creatinine, Serum 1.39 mg/dL (0.55-1.02); EST Glomerular Filtration Rate 40 mL/min (>60); Est Glom Filt Rate - Afr Amer 49 mL/min (>60); Estimated Creatinine Clearance 36.31 ml/min; Globulin 3.5 g/dL (2.2-4.2); Glucose 331 mg/dL (74-106); Magnesium 2.2 mg/dL (1.6-2.6); Phosphorus 2.9 mg/dL (2.5-4.9); Potassium 4.6 mmol/L (3.5-5.1); Protein, Total 5.4 g/dL (6.4-8.2); Sodium Level 139 mmol/L (136-145)
[2021-05-05 08:15] LABS: Partial Thromboplast Time 86.8 Seconds (24.1-36.2)
--- NOTE | 2021-05-05 08:20 | CON.PCM.CC_ITS ---
Assessment & Plan Assessment/Plan (1) COVID-19: (2) TELMA (acute kidney injury): (3) Chronic renal disease: QUALIFIERS: Chronic kidney disease stage: stage 2 (mild) Qualifi ed Code(s): N18.2 - Chronic kidney disease, stage 2 (mild) (4) Severe sepsis: (5) Type 2 diabetes mellitus: QUALIFIERS: Diabetes mellitus retirement insulin use: with retirement use Diabetes mellitus complication status: with unspecified complications Qualified Code(s): E11.8 - Type 2 diabetes mellitus with unspecified complications; Z79.4 - detention (current) use of insulin PLAN: RECOMMENDATIONS: 1. Okay to discontinue vancomycin. Continue Zosyn pending cultures 2. No additional fluid resuscitation 3. Potential diuresis once condition stabilizes 4. Reasonable to complete course of Decadron 5. Agree with the empiric treatment of PE for now 6. Electrolyte repletion and insulin titration as indicated IMPRESSIONS: 1. Severe sepsis secondary to gram-negative infection Unclear source. Patient does have bilateral infiltrates on chest x-ray, but recently had COVID-19. Patient also has a urine study that is suggestive of UTI. Given back pain, urinary is the most likely source. Patient will be taken off of vancomycin, but continued on Zosyn pending cultures. Patient did have evidence of endorgan damage with acute kidney injury. Would not continue to fluid resuscitate as this could exacerbate problem #2. 2. Acute hypoxic respiratory failure secondary to COVID-19 with possible PE Patient with bilateral infiltrates. Patient likely does not require Remdesivir, but could complete Decadron from my perspective. Patient did receive significant fluid resuscitation from problem #1 and this may account for increased to 8 L nasal cannula. We will hold off on diuresis at this time until renal function normalizes. Okay to continue with a heparin drip for now. Could obtain lower extremity Dopplers. VQ scan will be of marginal utility given baseline infiltrates. 3. Non-ST elevation [place] versus elevated troponin from supply demand mismatch Patient was hypoxic on presentation. However, troponins have persistently been elevated. Patient may have an element of right heart strain secondary to acute hypoxic respiratory failure versus PE. Cardiology is following. Echocardiogram has been ordered 4. Acute kidney injury/hypokalemia Likely secondary to problem #1. Patient has had some improvement from presentation with volume resuscitation. We will continue to follow. There is no indication for renal replacement therapy at this time. 5. Diabetes mellitus type 2/morbid obesity/hyperlipidemia/chronic low back pain/unvaccinated status Complicates care, management, recovery and prognosis. We will have to watch blood sugars closely given patient's need for Decadron therapy. Care with narcotics and benzodiazepines given problem #2. HPI Consult Data Date of Consult: 05/05/21 HPI Narrative HPI Narrative: MICHELE OBRIEN is a 65 F, with past medical history listed below, who presents to [facility] on 05/04/2021 secondary to generali zed illness. Patient had been diagnosed with coronavirus on 1213 with a subsequent hospitalization with hypoxia, back pain and functional decline. Patient did receive Remdesivir and Decadron and was discharged home without supplemental oxygen. Patient reportedly had a fall at home and slid to the ground. Patient was unclear how long she was down, but EMS to bring her to the ER. Patient was noted to be hypoxic into the 80s with tachycardia. Patient did respond to supplemental oxygen. In the ER, patient was afebrile, but tachycardic as high as 129 bpm. Patient was noted to be 86% on room air and required 3 L to maintain saturations. Blood pressures were adequate at that time. Laboratory work-up showed a white blood cell count of 21.2, hemoglobin of 15.6 and a D-dimer of 5. Potassium was slightly low at 3.4 and creatinine was elevated at 1.66. Glucose was elevated at 275, along with CRP of 189 and a troponin of over 1000. Lactate was elevated at 3.8 and procalcitonin was over 50. The ER gave the patient 3 L of IV fluids secondary to severe sepsis. Patient was initiated on vancomycin and Zosyn and admitted to the intensive care unit. Since being in the intensive care unit, patient has done okay. Patient is up to 8 L nasal cannula to maintain saturations. Patient is subsequently shown gram- negative rods in all blood cultures. Patient was started on a heparin drip empirically. No bleeding complications have been reported. Patient has a very odd affect, but did not have any true complaints this morning. Patient was able to tell me that she is not vaccinated against COVID-19 but thought that she was improving before this happened. [facility] Medical History Anxiety Arthritis Back pain Basal cell carcinoma of right lateral cheek Bilateral lower extremity edema Chronic pain Depression Hyperlipemia Hypertension Kidney failure Knee pain Mitral valve prolapse Neoplasm of skin of right cheek Neuropathy Ruptured disk Skin cancer Type 2 diabetes mellitus Vision problems Home Medications multivitamin 1 tab PO QAM 08/18/17 [History Last Taken 05/04/21] ascorbic acid (vitamin C) 1,000 mg PO DAILY 02/15/20 [History Last Taken 05/04/21] rixheje-gnetdbisf-tvke 333 mg-133 mg-5 mg tablet 1 tablet PO DAILY 08/05/20 [History Last Taken 05/04/21] naproxen 250 mg tablet 250 mg PO BID PRN 09/29/20 [History Last Taken 05/04/21] diazepam 5 mg tablet 5 mg PO QHS PRN #1 tab 11/03/20 [Rx Last Taken 05/03/21] oxycodone myristate 13.5 mg capsule sprinkle extend release 12hr(DON'T CRUSH) 13.5 mg PO BID ea 11/12/20 [History Last Taken 05/04/21] labetalol 200 mg tablet 200 mg PO BID #180 tab 02/10/21 [Rx Last Taken 05/04/21] insulin glargine 62 unit SC QHS 04/27/21 [History Last Taken 05/03/21] insulin lispro 24 unit SC TID 04/27/21 [History Last Taken 05/04/21] amlodipine 5 mg PO DAILY 05/04/21 [History Last Taken 05/04/21] cholecalciferol (vitamin D3) 100 mcg PO DAILY 05/04/21 [History Last Taken 05/04/21] dexamethasone 6 mg PO DAILY 05/04/21 [History Last Taken 05/04/21] glipizide 10 mg PO DAILY 05/04/21 [History Last Taken 05/04/21] lisinopril 40 mg PO DAILY 05/04/21 [History Last Taken 05/04/21] rosuvastatin [Crestor] 10 mg PO DAILY 05/04/21 [History Last Taken Unknown] tizanidine 4 mg PO DAILY 05/04/21 [History Last Taken 05/04/21] torsemide 10 mg PO DAILY 05/04/21 [History Last Taken Unknown] Allergy/AdvReac Type Severity Reaction Status Date / Time No Known Allergies Allergy Verified 05/04/21 13:11 Family History Mother Colon cancer Heart disease Hypertension Father Brain tumor CVA (cerebral vascular accident) Brother CVA (cerebral vascular accident) Diabetes Grandmother Parkinsons Other Alcoholism Angina at rest Arthritis Cancer FH: defects Lung cancer Seizures Surgical History H/O right heart catheterization History of basal cell carcinoma excision Social History Smoking Status: Former smoker how long ago did patient quit smokin alcohol intake: former substance use type: does not use what type of physical activity do you participate in: none additional social history: DOES NOT TAKE ASPIRIN DOES TAKE IBUPROFEN NEEDED ROS Review of Systems ROS Unobtainable: due to mental status Physical Exam Const alert and oriented x3 Constitutional Narrative: Odd affect with slow responses General Appearance: cooperative HEENT normocephalic, head/scalp atraumatic, hearing grossly normal bilaterally and moist oral mucous membranes HEENT Narrative: Mallampati 3 Eyes PERRL, EOMs intact bilaterally and conjunctivae normal Eyes Narrative: No scleral icterus Neck no lymphadenopathy, supple, no JVD and no carotid bruits Neck Narrative: Trachea midline, no thyroid enlargement Chest inspection of chest normal Chest: symmetrical chest wall rise; Negative for crepitus Resp no retractions and no use of accessory muscles Auscultation: diminished lung sounds diffuse; Negative for rales, rhonchi or wheezes Cardio regular rhythm, S1 normal heart sound, S2 normal heart sound, no murmurs, no rub, no gallops, no clicks and no JVD Cardio Narrative: Tachycardic GI normal to inspection, nondistended, normoactive bowel sounds, soft to palpation, non-tender and non-distended Extremity no clubbing, cyanosis or edema Peripheral Pulses: Yes pulses 2+ throughout Skin no rashes or lesions noted, no wounds, skin turgor normal, no jaundice, no petechiae and no mottling Neuro oriented x3, CN's II-XII intact bilaterally, moves all extremities and no focal motor deficits Neuro Narrative: Generalized weakness Sensorium / Orientation: awake and alert Speech: speech normal Psych affect normal Lab / Micro Data Result Diagrams: 05/05/21 06:45 05/05/21 06:45 Labs: Laboratory Results - last 24 hr 05/04/21 14:20: WBC 21.2 H, RBC 5.14, Hgb 15.6 H, Hct 48.2 H, MCV 93.8, MCH 30.4, MCHC 32.4, RDW Std Deviation 45.1 H, RDW Coeff of Eva 13.0, Plt Count 222, MPV 9.6, Neut % (Auto) Not Reportable, Absolute Neuts (auto) 16.3 H, Absolute Lymphs (auto) 1.50, Total Counted 100, Neutrophils % (Manual) 77 H, Lymphocytes % (Manual) 7 L, Monocytes % (Manual) 5, Metamyelocytes % 9 H, Myelocytes % 1 H, Promyelocytes % 1 H, Diff Path Review September, Platelet Estimate ADEQUATE, RBC Morphology NORM C+C 05/04/21 14:20: D-Dimer Quant (PE/DVT) 5.12 H* 05/04/21 14:20: Sodium 139, Potassium 3.4 L, Chloride 101, Carbon Dioxide 29.0, Anion Gap 9, BUN 26 H, Creatinine 1.66 H, Estim Creat Clear Calc 30.40, Est GFR (MDRD) Af Amer 40 L, Est GFR (MDRD) Non-Af 33 L, BUN/Creatinine Ratio 15.7, Glucose 275 H, Calcium 8.9, Total Bilirubin 0.50, AST 62 H, ALT 38, Alkaline Phosphatase 85, Total Creatine Kinase 650 H, Troponin I High Sens 1062 H*, C- React Prot Ext Range 189.00 H, Total Protein 6.4, Albumin 2.5 L, Globulin 3.9, Albumin/Globulin Ratio 0.6 L 05/04/21 14:20: Lactic Acid 3.8 H* 05/04/21 14:20: Procalcitonin > 50.00 H 05/04/21 15:40: PT 15.1 H, INR 1.3, APTT 29.0 05/04/21 16:50: Troponin I High Sens 948 H* 05/04/21 18:45: Lactic Acid 1.8 05/04/21 19:41: POC Glucose 324 H 05/04/21 19:50: Troponin I High Sens 936 H* 05/04/21 19:50: MRSA (PCR) Negative 05/04/21 20:05: Urine Color Yellow, Urine Clarity Sl. Cloudy, Urine pH 5.0, Ur Specific [place] 1.020, Urine Protein 500 H, Urine Glucose (UA) Normal, Urine Ketones 15 H, Urine Occult Blood 150 H, Urine Nitrite Positive H, Urine Bilirubin Negative, Urine Urobilinogen Normal, Ur Leukocyte Esterase 25 H, Urine RBC 0-5 SEEN, Urine WBC 10-25 SEEN, Ur Squamous Epith Cells 0-5 SEEN, Calcium Oxalate Crystal RARE, Urine Bacteria 3+, Urine Mucus 0 SEEN 05/04/21 21:45: APTT > 250.0 H* 05/05/21 06:45: WBC 16.0 H, RBC 4.16 L, Hgb 12.6, Hct 39.4, MCV 94.7, MCH 30.3, MCHC 32.0, RDW Std Deviation 47.9 H, RDW Coeff of Eva 13.5, Plt Count 194, MPV 9.8, Immature Gran % (Auto) 2.900 H, Neut % (Auto) 85.4 H, Lymph % (Auto) 7.7 L, [place] % (Auto) 3.8, Eos % (Auto) 0.0, Baso % (Auto) 0.2, Absolute Neuts (auto) 13.7 H, Absolute Lymphs (auto) 1.23, Nucleated RBC % 0 05/05/21 06:45: Sodium 139, Potassium 4.6, Chloride 106, Carbon Dioxide 23.0, Anion Gap 10, BUN 27 H, Creatinine 1.39 H, Estim Creat Clear Calc 36.31, Est GFR (MDRD) Af Amer 49 L, Est GFR (MDRD) Non-Af 40 L, BUN/Creatinine Ratio 19.4, Glucose 331 H, Calcium 8.0 L, Phosphorus 2.9, Magnesium 2.2, Total Bilirubin 0.40, AST 60 H, ALT 36, Alkaline Phosphatase 72, Total Protein 5.4 L, Albumin 1.9 L, Globulin 3.5, Albumin/Globulin Ratio 0.5 L 05/05/21 06:45: APTT 86.8 H Micro: Microbiology 05/04/21 15:10 Blood Culture (Wb) - Anticubital Right Blood Culture - Preliminary 05/04/21 14:20 Blood Culture (Wb) - Anticubital Left Blood Culture - Preliminary 05/04/21 20:05 Urine, Clean Catch Legionella Antigen - Final 05/04/21 20:05 Urine, Clean Catch Streptococcus pneumoniae Antigen (M - Final 05/04/21 14:25 Nasal Secretion SARS-CoV-2 Antigen (Rapid) - Final SARS-CoV-2 (COVID 19) Radiology Impression Chest X-Ray 05/04/21 17:19 IMPRESSION: Bilateral patchy infiltrates. Electronically Signed: Rogerio Holbrook DO at 20:26 EST Tel [phone], Service support , Charges/Coding Visit Charges Inpatient E&M: 43751 Init Hosp L3
--- NOTE | 2021-05-05 08:21 | PCM.CONS.C ---
Assessment & Plan Assessment/Plan (1) NSTEMI, initial episode of care: PLAN: The patient has abnormal troponin I levels compatible with a non-ST segment elevation NE. At the present time it is unclear that this is a acute coronary syndrome type I event as this may be a type II event secondary to her underlying pulmonary disease process and any concerns of thromboembolic disease. Thus at the present time she will continue cardiovascular monitoring and medical support as deemed appropriate. She is going to undergo further noncardiac evaluation of her pulmonary disease process by internal medicine and pulmonology/critical care medicine. Consideration is being given to evaluation for thromboembolic disease. In the interim she continues on anticoagulant therapy with IV heparin. Over time depending upon her clinical course and findings she may need additional noninvasive or invasive evaluation. However, with respect to additional invasive evaluation, barring an urgent/emergent cardiovascular event, would be reasonable to allow her to recuperate from her COVID-19, sepsis, acute renal insufficiency, etc. prior to proceeding with such procedures. (2) Mitral valve prolapse: PLAN: She has a history of mitral valve prolapse. Her previous echocardiogram is as noted. She has been followed by her primary care physician in the past. (3) COVID-19: PLAN: She continues with a diagnosis of COVID-19. She is currently in the ICU. She has been requiring O2 nasal cannula. She is proceeding with other supportive medical therapy. (4) Acute respiratory failure with hypoxia: PLAN: She was found to be hypoxic. Again this is not related to her COVID-19 diagnosis. She continues medical therapy. (5) Sepsis: PLAN: There was no ongoing sepsis. She continues with IV antibiotic therapy at this time. (6) TELMA (acute kidney injury): PLAN: Her renal function will need to be followed as it may impact further medical therapy and/or diagnostic studies. (7) Hyperlipemia: QUALIFIERS: Hyperlipidemia type: unspecified Qualified Code(s): E78.5 - Hyperlipidemia, unspecified PLAN: She should continue evaluation care for diagnosis of hyperlipidemia and treatment as deemed appropriate. (8) Hypertension: QUALIFIERS: Hypertension type: essential hypertension Qualified Code(s): I10 - Essential (primary) hypertension PLAN: Her blood pressure does need to be followed for any significant changes. Depending upon her blood pressure medicines may or may not need to be altered. 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 Addt'l Comments This note was generated using a voice recognition system and there may be incorrect words, spelling or punctuation that were not noted when reviewing the office note prior to saving. HPI Consult Data Date of Consult: 05/05/21 HPI Narrative HPI Narrative: MICHELE OBRIEN, is a 65 year old white female who presents for cardiovascular consultation based upon abnormal cardiac enzymes superimposed upon a history of ongoing COVID-19, sepsis, acute renal insufficiency, with a past history which has included mitral valve prolapse, hyperlipidemia, hypertension, and diabetes mellitus. It appears the patient was recently at [facility] for COVID-19. She underwent evaluation and care. She was released home. However yesterday she states that she felt . She does not recall any loss of consciousness. The EMS was summoned and she was found to have an elevated heart rate, respiratory rate, and low oxygen saturation. She was subsequently brought back to the hospital for further evaluation and care. During her evaluation she was noted to require supplemental O2. Her diagnostic studies suggested an elevated WBC, and elevated CPK level/troponin I level, and elevated D-dimer level, and an elevated creatinine level. A twelve-lead ECG was performed that demonstrated sinus tachycardia with left axis deviation and poor R wave progression. A chest x-ray was performed which suggested bilateral pulmonary infiltrates. She was subsequently placed in the ICU for further evaluation and care. She has continued to require O2 via nasal cannula. She was placed on medical therapy for the possibility of underlying thromboembolic disease with IV heparin. She was also placed, based upon concerns of underlying sepsis, on broad-spectrum IV antibiotics. A request was considered for chest CTA to evaluate for pulmonary emboli, however, that was placed on hold secondary to her creatinine level. She states at home she was coughing and felt short of breath and dyspneic. She notes that when she had the cough and the sensation of short of breath she had associated chest discomfort. She does not recall previously having concerning chest discomfort. There is been no report of classic orthopnea or PND suspicious for acute CHF. She states at home she has had waxing and waning lower extremity peripheral pitting edema. Again she denies any near-syncope. Her cardiac enzymes have demonstrated an elevated troponin I level which is trended down. She has had a previous transthoracic echocardiogram performed. The results are noted below. She states she has not required any other cardiovascular diagnostic studies to the best of her recollection. [facility] Medical History Anxiety Arthritis Back pain Basal cell carcinoma of right lateral cheek Bilateral lower extremity edema Chronic pain Depression Hyperlipemia Hypertension Kidney failure Knee pain Mitral valve prolapse Neoplasm of skin of right cheek Neuropathy Ruptured disk Skin cancer Type 2 diabetes mellitus Vision problems Home Medications multivitamin 1 tab PO QAM 08/18/17 [History Last Taken 05/04/21] ascorbic acid (vitamin C) 1,000 mg PO DAILY 02/15/20 [History Last Taken 05/04/21] yndfvgm-yifjylkup-pnun 333 mg-133 mg-5 mg tablet 1 tablet PO DAILY 08/05/20 [History Last Taken 05/04/21] naproxen 250 mg tablet 250 mg PO BID PRN 09/29/20 [History Last Taken 05/04/21] diazepam 5 mg tablet 5 mg PO QHS PRN #1 tab 11/03/20 [Rx Last Taken 05/03/21] oxycodone myristate 13.5 mg capsule sprinkle extend release 12hr(DON'T CRUSH) 13.5 mg PO BID ea 11/12/20 [History Last Taken 05/04/21] labetalol 200 mg tablet 200 mg PO BID #180 tab 02/10/21 [Rx Last Taken 05/04/21] insulin glargine 62 unit SC QHS 04/27/21 [History Last Taken 05/03/21] insulin lispro 24 unit SC TID 04/27/21 [History Last Taken 05/04/21] amlodipine 5 mg PO DAILY 05/04/21 [History Last Taken 05/04/21] cholecalciferol (vitamin D3) 100 mcg PO DAILY 05/04/21 [History Last Taken 05/04/21] dexamethasone 6 mg PO DAILY 05/04/21 [History Last Taken 05/04/21] glipizide 10 mg PO DAILY 05/04/21 [History Last Taken 05/04/21] lisinopril 40 mg PO DAILY 05/04/21 [History Last Taken 05/04/21] rosuvastatin [Crestor] 10 mg PO DAILY 05/04/21 [History Last Taken Unknown] tizanidine 4 mg PO DAILY 05/04/21 [History Last Taken 05/04/21] torsemide 10 mg PO DAILY 05/04/21 [History Last Taken Unknown] Allergy/AdvReac Type Severity Reaction Status Date / Time No Known Allergies Allergy Verified 05/04/21 13:11 Family History Mother Colon cancer Heart disease Hypertension Father Brain tumor CVA (cerebral vascular accident) Brother CVA (cerebral vascular accident) Diabetes Grandmother Parkinsons Other Alcoholism Angina at rest Arthritis Cancer FH: defects Lung cancer Seizures Surgical History H/O right heart catheterization History of basal cell carcinoma excision Social History Smoking Status: Former smoker how long ago did patient quit smokin alcohol intake: former substance use type: does not use what type of physical activity do you participate in: none additional social history: DOES NOT TAKE ASPIRIN DOES TAKE IBUPROFEN NEEDED ROS Constitutional Constitutional: Reports as per HPI Eyes Eyes: Reports as per HPI ENT HEENT: Reports as per HPI Cardiovascular Cardiovascular: Reports chest pain and dyspnea Respiratory/Chest Respiratory/Chest: Reports cough and dyspnea Gastrointestinal Gastrointestinal: Reports as per HPI Genitourinary Genitourinary: Reports as per HPI Musculoskeletal Musculoskeletal: Reports as per HPI Integumentary Integumentary: Reports as per HPI Neurologic Neurologic: Reports as per HPI Physical Exam Const alert, oriented x3 and no apparent distress Orientation / Consciousness: awake HEENT normocephalic, head/scalp atraumatic and hearing grossly normal bilaterally Eyes PERRL, EOMs intact bilaterally, conjunctivae normal and no scleral icterus Neck full ROM, supple and no JVD Resp Auscultation: rhonchi throughout (Scattered) Cardio regular rate, regular rhythm, S1 normal heart sound and S2 normal heart sound GI normal to inspection, nondistended, normoactive bowel sounds Extremity no pedal edema Skin no rashes or lesions noted Neuro oriented x3, moves all extremities, no focal motor deficits and no sensory deficits noted Psych mental status grossly normal Risk Stratification Risk Stratification Applicable: Yes Age >/= 65: Yes >/= 3 CAD Risk Factors (HTN, HLD, DM, family hx of CAD, or current smoker): Yes Aspirin Use in the Past 7 Days: No Severe Angina (>/= episodes in 24 hours): No EKG ST Changes >/= 0.5mm: No Positive Cardiac Marker: Yes GERARDO Risk Stratification Score: 3 GERARDO % Risk: 13% Risk Procedure Criteria Type of Procedure Procedure Type: Elective Elective Risks - COVID COVID Risk Discussion: The surgeon/proceduralist and patient have discussed in detail the risk of exposure to and/or potential harm posed by the COVID-19 virus with having a surgery/procedure at this time versus the risk of delaying the surgery/procedure. It is not possible to know either the risk of delaying the surgery or procedure or chance of getting an infection with perfect accuracy, but a joint decision was made between the patient and the surgeon/proceduralist to proceed at this time with the scheduled surgery/procedure as indicated on the consent form. Objective Data Vital Signs: Vital Signs Temp Pulse Resp BP Pulse Ox 98 F 94 22 H 141/71 H 93 05/05/21 04:00 05/05/21 07:00 05/05/21 07:00 05/05/21 07:00 05/05/21 07:00 Oxygen Flow Rate (L/min) 7 Oxygen Delivery Method Nasal Cannula Weight: 253 lb 8.505 oz Body Mass Index (BMI) 41.1 Intake & Output: Intake and Output for Last 24 Hours 05/03/21 05/04/21 05/05/21 23:59 23:59 23:59 Intake Total 4684.75 / 4684.75 230 / 230 Output Total 25 / 25 450 / 450 Balance 4659.75 / 4659.75 -220 / -220 Lab / Micro Data Result Diagrams: 05/05/21 06:45 05/05/21 06:45 Labs: Laboratory Results - last 24 hr 05/04/21 14:20: WBC 21.2 H, RBC 5.14, Hgb 15.6 H, Hct 48.2 H, MCV 93.8, MCH 30.4, MCHC 32.4, RDW Std Deviation 45.1 H, RDW Coeff of Eva 13.0, Plt Count 222, MPV 9.6, Neut % (Auto) Not Reportable, Absolute Neuts (auto) 16.3 H, Absolute Lymphs (auto) 1.50, Total Counted 100, Neutrophils % (Manual) 77 H, Lymphocytes % (Manual) 7 L, Monocytes % (Manual) 5, Metamyelocytes % 9 H, Myelocytes % 1 H, Promyelocytes % 1 H, Diff Path Review May foll, Platelet Estimate ADEQUATE, RBC Morphology NORM C+C 05/04/21 14:20: D-Dimer Quant (PE/DVT) 5.12 H* 05/04/21 14:20: Sodium 139, Potassium 3.4 L, Chloride 101, Carbon Dioxide 29.0, Anion Gap 9, BUN 26 H, Creatinine 1.66 H, Estim Creat Clear Calc 30.40, Est GFR (MDRD) Af Amer 40 L, Est GFR (MDRD) Non-Af 33 L, BUN/Creatinine Ratio 15.7, Glucose 275 H, Calcium 8.9, Total Bilirubin 0.50, AST 62 H, ALT 38, Alkaline Phosphatase 85, Total Creatine Kinase 650 H, Troponin I High Sens 1062 H*, C-React Prot Ext Range 189.00 H, Total Protein 6.4, Albumin 2.5 L, Globulin 3.9, Albumin/Globulin Ratio 0.6 L 05/04/21 14:20: Lactic Acid 3.8 H* 05/04/21 14:20: Procalcitonin > 50.00 H 05/04/21 15:40: PT 15.1 H, INR 1.3, APTT 29.0 05/04/21 16:50: Troponin I High Sens 948 H* 05/04/21 18:45: Lactic Acid 1.8 05/04/21 19:41: POC Glucose 324 H 05/04/21 19:50: Troponin I High Sens 936 H* 05/04/21 19:50: MRSA (PCR) Negative 05/04/21 20:05: Urine Color Yellow, Urine Clarity Sl. Cloudy, Urine pH 5.0, Ur Specific [place] 1.020, Urine Protein 500 H, Urine Glucose (UA) Normal, Urine Ketones 15 H, Urine Occult Blood 150 H, Urine Nitrite Positive H, Urine Bilirubin Negative, Urine Urobilinogen Normal, Ur Leukocyte Esterase 25 H, Urine RBC 0-5 SEEN, Urine WBC 10-25 SEEN, Ur Squamous Epith Cells 0-5 SEEN, Calcium Oxalate Crystal RARE, Urine Bacteria 3+, Urine Mucus 0 SEEN 05/04/21 21:45: APTT > 250.0 H* 05/05/21 06:45: WBC 16.0 H, RBC 4.16 L, Hgb 12.6, Hct 39.4, MCV 94.7, MCH 30.3, MCHC 32.0, RDW Std Deviation 47.9 H, RDW Coeff of Eva 13.5, Plt Count 194, MPV 9.8, Immature Gran % (Auto) 2.900 H, Neut % (Auto) 85.4 H, Lymph % (Auto) 7.7 L, [place] % (Auto) 3.8, Eos % (Auto) 0.0, Baso % (Auto) 0.2, Absolute Neuts (auto) 13.7 H, Absolute Lymphs (auto) 1.23, Nucleated RBC % 0 05/05/21 06:45: Sodium 139, Potassium 4.6, Chloride 106, Carbon Dioxide 23.0, Anion Gap 10, BUN 27 H, Creatinine 1.39 H, Estim Creat Clear Calc 36.31, Est GFR (MDRD) Af Amer 49 L, Est GFR (MDRD) Non-Af 40 L, BUN/Creatinine Ratio 19.4, Glucose 331 H, Calcium 8.0 L, Phosphorus 2.9, Magnesium 2.2, Total Bilirubin 0.40, AST 60 H, ALT 36, Alkaline Phosphatase 72, Total Protein 5.4 L, Albumin 1.9 L, Globulin 3.5, Albumin/Globulin Ratio 0.5 L 05/05/21 06:45: APTT 86.8 H Micro: Microbiology 05/04/21 15:10 Blood Culture (Wb) - Anticubital Right Blood Culture - Preliminary 05/04/21 14:20 Blood Culture (Wb) - Anticubital Left Blood Culture - Preliminary 05/04/21 20:05 Urine, Clean Catch Legionella Antigen - Final 05/04/21 20:05 Urine, Clean Catch Streptococcus pneumoniae Antigen (M - Final 05/04/21 14:25 Nasal Secretion SARS-CoV-2 Antigen (Rapid) - Final SARS-CoV-2 (COVID 19) Cardiology Labs/Tests 05/04/21 14:20: WBC 21.2 H, RBC 5.14, Hgb 15.6 H, Hct 48.2 H, MCV 93.8, MCH 30.4, MCHC 32.4, Plt Count 222, MPV 9.6, Neut % (Auto) Not Reportable, Absolute Neuts (auto) 16.3 H, Total Counted 100, Neutrophils % (Manual) 77 H, Lymphocytes % (Manual) 7 L, Monocytes % (Manual) 5, Metamyelocytes % 9 H, Myelocytes % 1 H, Promyelocytes % 1 H 05/04/21 14:20: D-Dimer Quant (PE/DVT) 5.12 H* 05/04/21 14:20: Sodium 139, Potassium 3.4 L, Chloride 101, Carbon Dioxide 29.0, Anion Gap 9, BUN 26 H, Creatinine 1.66 H, Est GFR (MDRD) Af Amer 40 L, Est GFR (MDRD) Non-Af 33 L, BUN/Creatinine Ratio 15.7, Glucose 275 H, Calcium 8.9, Total Bilirubin 0.50 05/04/21 14:20: Lactic Acid 3.8 H* 05/04/21 15:40: PT 15.1 H, INR 1.3, APTT 29.0 05/04/21 18:45: Lactic Acid 1.8 05/04/21 20:05: Urine Color Yellow, Urine Clarity Sl. Cloudy, Urine pH 5.0, Ur Specific [place] 1.020, Urine Protein 500 H, Urine Glucose (UA) Normal, Urine Ketones 15 H, Urine Occult Blood 150 H, Urine Nitrite Positive H, Urine Bilirubin Negative, Urine Urobilinogen Normal, Ur Leukocyte Esterase 25 H, Urine RBC 0-5 SEEN, Urine WBC 10-25 SEEN 05/04/21 21:45: APTT > 250.0 H* 05/05/21 06:45: WBC 16.0 H, RBC 4.16 L, Hgb 12.6, Hct 39.4, MCV 94.7, MCH 30.3, MCHC 32.0, Plt Count 194, MPV 9.8, Immature Gran % (Auto) 2.900 H, Neut % (Auto) 85.4 H, Lymph % (Auto) 7.7 L, [place] % (Auto) 3.8, Eos % (Auto) 0.0, Baso % (Auto) 0.2, Absolute Neuts (auto) 13.7 H, Nucleated RBC % 0 05/05/21 06:45: Sodium 139, Potassium 4.6, Chloride 106, Carbon Dioxide 23.0, Anion Gap 10, BUN 27 H, Creatinine 1.39 H, Est GFR (MDRD) Af Amer 49 L, Est GFR (MDRD) Non-Af 40 L, BUN/Creatinine Ratio 19.4, Glucose 331 H, Calcium 8.0 L, Phosphorus 2.9, Magnesium 2.2, Total Bilirubin 0.40 05/05/21 06:45: APTT 86.8 H Rhythm: Sinus rhythm EKG: As noted above ECHO: 11-24-2020 Interpretation Summary Normal LV size. Left ventricular systolic function is normal. The estimated ejection fraction is 55 %. Posterior leaflet mitral valve prolapse. Mild (1+) eccentric mitral valve insufficiency. Radiography Diagnostic Testing: Radiology Impression Chest X-Ray 05/04/21 17:19 IMPRESSION: Bilateral patchy infiltrates. Electronically Signed: Rogerio Holbrook DO at 20:26 EST Tel [phone], Service support ,
[2021-05-05] MEDS: Insulin Lispro 100 UNIT/ML INSULN.PEN SC ×3 (08:22→17:40)
[2021-05-05] MEDS: Ascorbic Acid 500 MG Tablet 1000 MG PO (08:23)
[2021-05-05] MEDS: Aspirin 81 MG TAB.CHEW PO (08:23)
[2021-05-05] MEDS: Lisinopril 40 MG Tablet PO (08:23)
[2021-05-05] MEDS: dexAMETHasone 4 MG Tablet 6 MG PO (08:23)
[2021-05-05] MEDS: tiZANidine HCl 2 MG Tablet 4 MG PO (08:23)
[2021-05-05 08:35] LABS: Bedside Glucose 323 mg/dL (70-110)
[2021-05-05 08:45] LABS: Cholesterol 95 mg/dL (200); High Density Lipoprotein 18 mg/dL; Triglycerides 247 mg/dL; Very Low Density Lipoprotein 49 mg/dL (5-40)
[2021-05-05 08:48] LABS: CPK Total, Creatine Kinase 676 U/L (26-192)
--- NOTE | 2021-05-05 09:39 | EKG12_ITS ---
Test Reason : ELEVAED TROPONINS Blood Pressure : / mmHG Vent. Rate : 093 BPM Atrial Rate : 093 BPM P-R Int : 130 ms QRS Dur : 078 ms QT Int : 410 ms P-R-T Axes : 033 -06 095 degrees QTc Int : 509 ms Normal sinus rhythm Nonspecific ST and T wave abnormality Abnormal ECG Confirmed by SANJEEV SOL, DESTINY ([id number]), book editor ASHTYN MONK ([id number]) on 05/12/2021 10:14:47 AM Referred By: RAVIN Confirmed By:DESTINY PACE MD
[2021-05-05] MEDS: Furosemide 20 MG Tablet PO (11:48)
[2021-05-05 11:55] LABS: Bedside Glucose 322 mg/dL (70-110)
--- NOTE | 2021-05-05 12:45 | PN.HOSP_ITS ---
Subjective Subjective Oxygen able to be weaned down while at rest. Objective Data Objective Data Vital Signs: Vital Signs Temp Pulse Resp BP Pulse Ox 37.2 C 86 21 H 94/53 L 95 05/05/21 08:00 05/05/21 10:00 05/05/21 10:00 05/05/21 10:00 05/05/21 10:00 Oxygen Flow Rate (L/min) 7 Oxygen Delivery Method Nasal Cannula Weight: 115 kg Body Mass Index (BMI) 41.1 Intake & Output: Intake and Output for Last 24 Hours 05/03/21 05/04/21 05/05/21 23:59 23:59 23:59 Intake Total 4684.75 / 4684.75 405.75 / 405.75 Output Total 450 / 450 Balance 4659.75 / 4659.75 -44.25 / -44.25 Lab / Micro Data Result Diagrams: 05/05/21 06:45 05/05/21 06:45 Labs: Laboratory Results - last 24 hr 05/04/21 14:20: WBC 21.2 H, RBC 5.14, Hgb 15.6 H, Hct 48.2 H, MCV 93.8, MCH 30.4, MCHC 32.4, RDW Std Deviation 45.1 H, RDW Coeff of Eva 13.0, Plt Count 222, MPV 9.6, Neut % (Auto) Not Reportable, Absolute Neuts (auto) 16.3 H, Absolute Lymphs (auto) 1.50, Total Counted 100, Neutrophils % (Manual) 77 H, Lymphocytes % (Manual) 7 L, Monocytes % (Manual) 5, Metamyelocytes % 9 H, Myelocytes % 1 H, Promyelocytes % 1 H, Diff Path Review May foll, Platelet Estimate ADEQUATE, RBC Morphology NORM C+C 05/04/21 14:20: D-Dimer Quant (PE/DVT) 5.12 H* 05/04/21 14:20: Sodium 139, Potassium 3.4 L, Chloride 101, Carbon Dioxide 29.0, Anion Gap 9, BUN 26 H, Creatinine 1.66 H, Estim Creat Clear Calc 30.40, Est GFR (MDRD) Af Amer 40 L, Est GFR (MDRD) Non-Af 33 L, BUN/Creatinine Ratio 15.7, Glucose 275 H, Calcium 8.9, Total Bilirubin 0.50, AST 62 H, ALT 38, Alkaline Phosphatase 85, Total Creatine Kinase 650 H, Troponin I High Sens 1062 H*, C- React Prot Ext Range 189.00 H, Total Protein 6.4, Albumin 2.5 L, Globulin 3.9, Albumin/Globulin Ratio 0.6 L 05/04/21 14:20: Lactic Acid 3.8 H* 05/04/21 14:20: Procalcitonin > 50.00 H 05/04/21 15:40: PT 15.1 H, INR 1.3, APTT 29.0 05/04/21 16:50: Troponin I High Sens 948 H* 05/04/21 18:45: Lactic Acid 1.8 05/04/21 19:41: POC Glucose 324 H 05/04/21 19:50: Troponin I High Sens 936 H* 05/04/21 19:50: MRSA (PCR) Negative 05/04/21 20:05: Urine Color Yellow, Urine Clarity Sl. Cloudy, Urine pH 5.0, Ur Specific [place] 1.020, Urine Protein 500 H, Urine Glucose (UA) Normal, Urine Ketones 15 H, Urine Occult Blood 150 H, Urine Nitrite Positive H, Urine Bilirubin Negative, Urine Urobilinogen Normal, Ur Leukocyte Esterase 25 H, Urine RBC 0-5 SEEN, Urine WBC 10-25 SEEN, Ur Squamous Epith Cells 0-5 SEEN, Calcium Oxalate Crystal RARE, Urine Bacteria 3+, Urine Mucus 0 SEEN 05/04/21 21:45: APTT > 250.0 H* 05/05/21 06:45: WBC 16.0 H, RBC 4.16 L, Hgb 12.6, Hct 39.4, MCV 94.7, MCH 30.3, MCHC 32.0, RDW Std Deviation 47.9 H, RDW Coeff of Eva 13.5, Plt Count 194, MPV 9.8, Immature Gran % (Auto) 2.900 H, Neut % (Auto) 85.4 H, Lymph % (Auto) 7.7 L, [place] % (Auto) 3.8, Eos % (Auto) 0.0, Baso % (Auto) 0.2, Absolute Neuts (auto) 13.7 H, Absolute Lymphs (auto) 1.23, Nucleated RBC % 0 05/05/21 06:45: Sodium 139, Potassium 4.6, Chloride 106, Carbon Dioxide 23.0, Anion Gap 10, BUN 27 H, Creatinine 1.39 H, Estim Creat Clear Calc 36.31, Est GFR (MDRD) Af Amer 49 L, Est GFR (MDRD) Non-Af 40 L, BUN/Creatinine Ratio 19.4, G lucose 331 H, Calcium 8.0 L, Phosphorus 2.9, Magnesium 2.2, Total Bilirubin 0.40, AST 60 H, ALT 36, Alkaline Phosphatase 72, Total Protein 5.4 L, Albumin 1.9 L, Globulin 3.5, Albumin/Globulin Ratio 0.5 L 05/05/21 06:45: APTT 86.8 H 05/05/21 06:45: Triglycerides 247 H, Cholesterol 95, LDL Cholesterol 28, VLDL Cholesterol 49 H, HDL Cholesterol 18 L 05/05/21 06:45: Total Creatine Kinase 676 H 05/05/21 08:01: POC Glucose 323 H 05/05/21 11:41: POC Glucose 322 H Micro: Microbiology 05/04/21 14:20 Blood Culture (Wb) - Anticubital Left Blood Culture - Preliminary Gram negative wendy 05/04/21 20:40 Sputum, Expectorated/Coughed Gram Stain - Final 05/04/21 20:40 Sputum, Expectorated/Coughed Respiratory Culture - Preliminary Staphylococcus aureus 05/04/21 20:05 Urine, Clean Catch Urine Culture - Preliminary Gram negative wendy 05/04/21 20:05 Urine, Clean Catch Legionella Antigen - Final 05/04/21 20:05 Urine, Clean Catch Streptococcus pneumoniae Antigen (M - Final 05/04/21 15:10 Blood Culture (Wb) - Anticubital Right Blood Culture - Preliminary 05/04/21 14:25 Nasal Secretion SARS-CoV-2 Antigen (Rapid) - Final SARS-CoV-2 (COVID 19) Radiography Diagnostic Testing: Radiology Impression Chest X-Ray 05/04/21 17:19 IMPRESSION: Bilateral patchy infiltrates. Electronically Signed: Rogerio Holbrook DO at 20:26 EST Tel [phone], Service support , Physical Exam Const alert Constitutional Narrative: listless. take several moments to full wake up to in teract Resp normal respiratory effort, no retractions, no use of accessory muscles and clear to auscultation bilaterally Cardio regular rate, regular rhythm, S1 normal heart sound and S2 normal heart sound GI normal to inspection, nondistended, normoactive bowel sounds and soft to palpation Extremity General Extremity: edema Skin no rashes or lesions noted Assessment & Plan Assessment/Plan (1) Acute respiratory failure with hypoxia: (2) NSTEMI, initial episode of care: (3) Sepsis: QUALIFIERS: Sepsis type: sepsis due to unspecified organism Sepsis acute organ dysfunction status: with acute organ dysfunction Severe sepsis acute organ dysfunction type: acute renal failure Acute renal failure type: unspecified Severe sepsis shock status: without septic shock Qualified Code(s): A41.9 - Sepsis, unspecified organism; R65.20 - Severe sepsis without septic shock; N17.9 - Acute kidney failure, unspecified (4) COVID-19: (5) TELMA (acute kidney injury): PLAN: 1. Acute hypoxic respiratory failure Secondary to COVID-19 and staph pneumonia Cannot rule out pulmonary embolism secondary bacterial infections Wean oxygen as able Will need CTA as Cr improves Currently on heparin drip 2. Non-ST elevation myocardial infarction Suspect type II given resp failure and sepsis Cardiology following Echo shows EF 55% Anticoagulated 3. Sepsis Patient needs criteria for sepsis based on SEP 1 criteria. qSOFA score upon admission was 1 on admission and therefore did not meet SEP 3 criteria. Patient with staph in her sputum and gram-negative rods in her urine. Continue with Vanco and pip tazo and de-escalate based on final culture results. 4. COVID 19 pneumonia Unvaccinated on dexamethasone 5. Step aureus pneumonia On vancomycin 6. UTI Gram-negative rods in the urine currently on pip/tazo 7. Lactic acidosis May be multifactorial due to sepsis as well as acute hypoxic respiratory failure 8. VTE prophylaxis: Not indicated as patient is currently anticoagulated. Charges/Coding Visit Charges Inpatient E&M: 20299 [facility] L3
--- NOTE | 2021-05-05 13:12 | PCM.RX.CS ---
Consult Type of Consult: New start Suspected Infection: Sepsis Labs: Sodium 139 mmol/L (136-145) 05/05/21 06:45 Potassium 4.6 mmol/L (3.5-5.1) 05/05/21 06:45 Chloride 106 mmol/L (98-107) 05/05/21 06:45 Carbon Dioxide 23.0 mmol/L (21.0-32.0) 05/05/21 06:45 Anion Gap 10 (5-15) 05/05/21 06:45 BUN 27 mg/dL (7-18) H 05/05/21 06:45 Creatinine 1.39 mg/dL (0.55-1.02) H 05/05/21 06:45 Est GFR (MDRD) Af Amer 49 mL/min (>60) L 05/05/21 06:45 Est GFR (MDRD) Non-Af 40 mL/min (>60) L 05/05/21 06:45 BUN/Creatinine Ratio 19.4 RATIO (10-20) 05/05/21 06:45 Glucose 331 mg/dL (74-106) H 05/05/21 06:45 Microbiology: Microbiology 05/04/21 15:10 Blood Culture (Wb) - Anticubital Right Blood Culture - Preliminary 05/04/21 14:20 Blood Culture (Wb) - Anticubital Left Blood Culture - Preliminary Gram negative wendy 05/04/21 20:40 Sputum, Expectorated/Coughed Gram Stain - Final 05/04/21 20:40 Sputum, Expectorated/Coughed Respiratory Culture - Preliminary Staphylococcus aureus 05/04/21 20:05 Urine, Clean Catch Urine Culture - Preliminary Gram negative wendy 05/04/21 20:05 Urine, Clean Catch Legionella Antigen - Final 05/04/21 20:05 Urine, Clean Catch Streptococcus pneumoniae Antigen (M - Final 05/04/21 14:25 Nasal Secretion SARS-CoV-2 Antigen (Rapid) - Final SARS-CoV-2 (COVID 19) Goal Trough: 15-20 mcg/mL Pharmacy Plan for Drug Dosing: NEW START IV VANCOMYCIN Consulting Physician: DR. PÉREZ Indication: SEPSIS Goal Trough: 15-20 SrCr: 1.39 CrCl: 36.31 ML/MIN Comments: 1750MG X1 DOSE GIVEN @ 1734 05/04/21 Vancomcyin Dose: 1500MG Q24H TO START @ 1700 05/05/21 Pending Level: VANCOMYCIN TROUGH @ 1630 05/07/21 Pharmacy Service will continue to monitor and adjust dosing as required. Labs to be done on [date and time ordered]: VANCOMYCIN TROUGH @ 1630 05/07/21
[2021-05-05 16:20] LABS: Procalcitonin > 50.00 ng/mL (0.00-0.09)
--- NOTE | 2021-05-05 17:00 | CASEMGMT ---
Addendum entered by Carri Madrid 05/06/21 13:13: Pt states she had not made any f/u appts yet to any physicians since being discharged. She has been taking medications as prescribed. Original Note: COLLIN ROJO readmission note and assessment: Prior admission: Admitted 04/28/21 w/back pain. Pt tested + for COVID. Discharged home 04/29/21. Initial d/c plan was for pt to go to SNF, but d/t +COVID, only local option was [facility] and pt decided to return home instead. She declined HHC at that time. She was discharged on RA. Current admission: Admitted 05/04/21 w/generalized weakness and worsening COVID symptoms. COLLIN ROJO placed call to pt's room for care coordination assessment and discharge planning. COLLIN ROJO introduced self and role at [facility]. Pt voices understanding and consents to assessment at this time. Pt is A/O at this time and answers all questions appropriately. Care providers, pharmacy, and demographics verified/updated at this time. Pt had 1st COVID testing done @ [facility] 04/28 and again 05/04 PCP: Dr Ho Landeros Specialists: Dr Nova kruger Preferred Pharmacy: [facility] Insurance: [employer] Prescription Benefit: Yes LNOK: , Per--pt states he was just admitted to [facility] today w/COVID. 2 daughters: Dahlia Yepez (lives in [facility]) and Vanessa Yepez (lives in [place]). Pt does not know their phone numbers. Living Arrangements: Lives w/her in one-story home. 4 steps to enter. Pt has been having difficulty w/caring for self--stating it has been difficult getting on/off commode and providing self-care in bathroom. Also difficult w/bathing and dressings self. Transportation: DME: States has the following DME: Functioning glucometer w/supplies, shower chair, RTS, cane, walker, lift chair. Pt does not have pulse ox--COLLIN ROJO recommended to get one. Pt does not have Home O2 and has no preference of DME co. HHC/SNF: No hx of either. Pt states feels she needs a SNF @ discharge. States 1st preference is [facility]. Discussion w/pt re: +COVID and they were unable to accept her last admission d/t not taking +COVID pt's. Pt states she is aware. She states she would be agreeable to going to [facility] @ discharge now, if they are still the only SNF accepting COVID pt's. PLAN: SNF Yessica FARRELLN RN CM
[2021-05-05 18:41] LABS: Bedside Glucose 370 mg/dL (70-110)
[2021-05-05] MEDS: Acetaminophen 325 MG Tablet 650 MG PO (22:29)
[2021-05-05 22:51] LABS: Bedside Glucose 401 mg/dL (70-110)
[2021-05-06] VITALS (12 sets, daily range): BP systolic 122–193; BP diastolic 70–98; PULSE 74–97; RESP 20–24; TEMP 35.9–37.3; O2SAT 89–97
[2021-05-06 00:25] LABS: Partial Thromboplast Time 60.5 Seconds (24.1-36.2)
--- NOTE | 2021-05-06 05:55 | EKG12_ITS ---
Test Reason : AM EKG Blood Pressure : / mmHG Vent. Rate : 090 BPM Atrial Rate : 090 BPM P-R Int : 132 ms QRS Dur : 088 ms QT Int : 412 ms P-R-T Axes : 040 015 088 degrees QTc Int : 504 ms Normal sinus rhythm Nonspecific T wave abnormality Prolonged QT Abnormal ECG When compared with ECG of 04-MAY-2021 14:32, MANUAL COMPARISON REQUIRED, DATA IS UNCONFIRMED Confirmed by SANJEEV OSL, DESTINY ([id number]), sound editor ASHTYN MONK ([id number]) on 05/07/2021 11:42:56 AM Referred By: LIZZETH Confirmed By:DESTINY PACE MD
[2021-05-06] MEDS: Insulin Lispro 100 UNIT/ML INSULN.PEN SC ×4 (06:02→22:09)
[2021-05-06 06:29] LABS: Absolute Lymphocyte Count 0.82 X10^3/uL (0.83-4.51); Absolute Neutrophil Count 12.4 X10^3/uL (2.0-7.7); Basophil# 0.05 X10^3/uL; Basophil% 0.4 % (0-1); Eosinophil# 0.04 X10^3/uL; Eosinophils% 0.3 % (0-5); Hematocrit 40.2 % (37-47); Hemoglobin 12.8 g/dL (12.0-15.0); Lymphocyte # 0.82 X10^3/ul (0.83-4.51); Lymphocyte % 5.8 % (19-41); Mean Corp Hgb Conc 31.8 g/dL (32-36); Mean Corpuscular Volume 94.4 fL (81-99); Monocyte# 0.63 X10^3/uL; Monocyte% 4.4 % (0-10); NRBC Flagged by Analyzer 0 % (0-5); Neutrophil # 12.35 X10^3/uL (2.7-7.7); Neutrophil % 86.5 % (47-70); Platelet Count 233 K/mm3 (150-450); RBC Distribution Width CV 13.5 % (11.6-14.6); RBC Distribution Width SD 47.4 fl (35.1-43.9); Red Blood Count 4.26 M/mm3 (4.2-5.4); White Blood Count 14.3 K/mm3 (4.4-11.0)
[2021-05-06 06:35] LABS: Bedside Glucose 336 mg/dL (70-110)
[2021-05-06 06:49] LABS: ALB/GLOB Ratio 0.5 RATIO (0.9-2.4); AST(SGOT) 151 U/L (15-37); Alanine Aminotransfer ALT/SGPT 62 U/L (13-56); Alkaline Phosphatase 80 U/L (45-117); Anion Gap 9 (5-15); BUN 36 mg/dL (7-18); BUN/Creat Ratio 24.7 RATIO (10-20); Calcium,Total 8.3 mg/dL (8.5-10.1); Chloride 108 mmol/L (98-107); Creatinine, Serum 1.46 mg/dL (0.55-1.02); EST Glomerular Filtration Rate 38 mL/min (>60); Est Glom Filt Rate - Afr Amer 46 mL/min (>60); Estimated Creatinine Clearance 34.57 ml/min; Globulin 3.8 g/dL (2.2-4.2); Glucose 334 mg/dL (74-106); Potassium 4.2 mmol/L (3.5-5.1); Protein, Total 5.8 g/dL (6.4-8.2); Sodium Level 140 mmol/L (136-145)
--- NOTE | 2021-05-06 07:06 | PCS.PANDOC ---
PANDEMIC DOCUMENTATION INITIATED: Date: 12/29/2020 Time: 190
[2021-05-06] MEDS: Albuterol 2.5 MG/3 ML VIAL.NEB. INHALATION (07:57)
[2021-05-06] MEDS: Enoxaparin 120 MG/0.8 ML Syringe 110 MG SC ×2 (09:02→17:47)
[2021-05-06] MEDS: Ascorbic Acid 500 MG Tablet 1000 MG PO (09:02)
[2021-05-06] MEDS: Labetalol 200 MG Tablet PO ×2 (09:02→21:42)
[2021-05-06] MEDS: tiZANidine HCl 2 MG Tablet 4 MG PO (09:02)
[2021-05-06] MEDS: dexAMETHasone 4 MG Tablet 6 MG PO (09:02)
[2021-05-06] MEDS: Acetaminophen 325 MG Tablet 650 MG PO ×2 (09:02→16:07)
[2021-05-06] MEDS: Furosemide 20 MG Tablet PO (09:03)
[2021-05-06] MEDS: 0.9% Saline Lock 10 ML Syringe IV ×2 (09:03→16:07)
[2021-05-06] MEDS: amLODIPine 5 MG Tablet PO (09:03)
[2021-05-06] MEDS: Aspirin 81 MG TAB.CHEW PO (09:03)
[2021-05-06] MEDS: Lisinopril 40 MG Tablet PO (09:03)
--- NOTE | 2021-05-06 09:27 | CT_ITS ---
STUDY: CTA CHEST REASON FOR EXAM: Female, 65 years old. Shortness of breath; COVID 19; r/o PE RADIATION DOSAGE (If Supplied By Facility): CTDIvol = ( 12.66 ) mGy, DLP = ( 531.54 ) mGycm TECHNIQUE: The examination was performed with the intravenous administration of IV 100mL Isovue-370. Post-processing of the angiographic images was performed, with multiplanar reformation and 3D reconstruction. Individualized dose optimization techniques were used for this CT. COMPARISON: Comparison is made with prior chest radiograph dated 05/04/2021. FINDINGS: Normal enhancement of the main pulmonary artery and right and left pulmonary arteries. Normal enhancement of the bilateral peripheral pulmonary arteries. There is no demonstrated pulmonary embolism. Normal thoracic aorta and visualized great vessels. There is no demonstrated aortic dissection. There are calcifications of the coronary arteries. Normal mediastinum. Normal hilar regions. Normal visualized trachea and bronchi. There is elevation of the right diaphragm. There is evidence of diffuse bilateral pulmonary infiltrates involving both upper and lower lobes in both lungs. This is worse in the right hemithorax. Small bilateral pleural effusions. Normal chest wall structures. There are degenerative changes of thoracic spine. Normal visualized upper abdomen. CT/CTA Chest W/WO Contrast IMPRESSION: There is no evidence of pulmonary embolism. Diffuse bilateral pulmonary infiltrates worse in the right hemithorax. Electronically Signed: Tiago Moncada MD at 10:54 EST , Service support ,
--- NOTE | 2021-05-06 09:29 | PN.CARD_ITS ---
Subjective Subjective The awake and alert. She continues with shortness of breath and dyspnea. She has required a time to increase O2 support. Objective Data Vital Signs: Vital Signs Temp Pulse Resp BP Pulse Ox 99.1 F 89 20 H 193/98 H 94 05/06/21 08:00 05/06/21 08:00 05/06/21 08:00 05/06/21 08:00 05/06/21 08:00 Oxygen Flow Rate (L/min) 15 Oxygen Delivery Method Nasal Cannula Weight: 250 lb 0.067 oz Body Mass Index (BMI) 41.1 Intake & Output: Intake and Output for Last 24 Hours 05/04/21 05/05/21 05/06/21 23:59 23:59 23:59 Intake Total 4684.75 / 4684.75 1771.75 / 1771.75 253.17 / 253.17 Output Total 450 / 450 50 / 50 Balance 4659.75 / 4659.75 1321.75 / 1321.75 203.17 / 203.17 Lab / Micro Data Result Diagrams: 05/06/21 06:16 05/06/21 06:16 Labs: Laboratory Results - last 24 hr 05/05/21 06:45: Procalcitonin > 50.00 H 05/05/21 11:41: POC Glucose 322 H 05/05/21 14:30: APTT Cancelled 05/05/21 16:00: APTT 88.0 H 05/05/21 17:35: POC Glucose 370 H 05/05/21 22:35: POC Glucose 401 H 05/05/21 23:45: APTT 60.5 H 05/06/21 05:55: POC Glucose 336 H 05/06/21 06:16: WBC 14.3 H, RBC 4.26, Hgb 12.8, Hct 40.2, MCV 94.4, MCH 30.0, MCHC 31.8 L, RDW Std Deviation 47.4 H, RDW Coeff of Eva 13.5, Plt Count 233, MPV 10.0, Immature Gran % (Auto) 2.600 H, Neut % (Auto) 86.5 H, Lymph % (Auto) 5.8 L , Dawson % (Auto) 4.4, Eos % (Auto) 0.3, Baso % (Auto) 0.4, Absolute Neuts (auto) 12.4 H, Absolute Lymphs (auto) 0.82 L, Nucleated RBC % 0 05/06/21 06:16: Sodium 140, Potassium 4.2, Chloride 108 H, Carbon Dioxide 23.0, Anion Gap 9, BUN 36 H, Creatinine 1.46 H, Estim Creat Clear Calc 34.57, Est GFR (MDRD) Af Amer 46 L, Est GFR (MDRD) Non-Af 38 L, BUN/Creatinine Ratio 24.7 H, Glucose 334 H, Calcium 8.3 L, Total Bilirubin 0.40, AST 151 H, ALT 62 H, Alkaline Phosphatase 80, Total Protein 5.8 L, Albumin 2.0 L, Globulin 3.8, Albumin/Globulin Ratio 0.5 L Micro: Microbiology 05/04/21 14:20 Blood Culture (Wb) - Anticubital Left Blood Culture - Preliminary Gram negative wendy 05/04/21 15:10 Blood Culture (Wb) - Anticubital Right Blood Culture - Preliminary Gram negative wendy 05/04/21 20:40 Sputum, Expectorated/Coughed Gram Stain - Final 05/04/21 20:40 Sputum, Expectorated/Coughed Respiratory Culture - Preliminary Staphylococcus aureus 05/04/21 20:05 Urine, Clean Catch Urine Culture - Final Escherichia coli 05/04/21 20:05 Urine, Clean Catch Legionella Antigen - Final 05/04/21 20:05 Urine, Clean Catch Streptococcus pneumoniae Antigen (M - Final Cardiology Labs/Tests 05/05/21 14:30: APTT Cancelled 05/05/21 16:00: APTT 88.0 H 05/05/21 23:45: APTT 60.5 H 05/06/21 06:16: WBC 14.3 H, RBC 4.26, Hgb 12.8, Hct 40.2, MCV 94.4, MCH 30.0, MCHC 31.8 L, Plt Count 233, MPV 10.0, Immature Gran % (Auto) 2.600 H, Neut % (Auto) 86.5 H, Lymph % (Auto) 5.8 L, Dawson % (Auto) 4.4, Eos % (Auto) 0.3, Baso % (Auto) 0.4, Absolute Neuts (auto) 12.4 H, Nucleated RBC % 0 05/06/21 06:16: Sodium 140, Potassium 4.2, Chloride 108 H, Carbon Dioxide 23.0, Anion Gap 9, BUN 36 H, Creatinine 1.46 H, Est GFR (MDRD) Af Amer 46 L, Est GFR (MDRD) Non-Af 38 L, BUN/Creatinine Ratio 24.7 H, Glucose 334 H, Calcium 8.3 L, Total Bilirubin 0.40 Rhythm: Sinus rhythm/sinus tachycardia EKG: Sinus rhythm; nonspecific T wave abnormality ECHO: As noted below Radiography Diagnostic Testing: Radiology Impression Echocardiogram 05/05/21 05:55 Interpretation Summary Normal LV size. Left ventricular systolic function is normal. The estimated ejection fraction is 55 %. Stage 1 diastolic dysfunction. Mild concentric left ventricular hypertrophy. The study was technically difficult. Ordering Physician: Lisa Solares Referring Physician: Ho Landeros Performed By: Taylor Verduzco, SUHA, RVT Physical Exam Const alert, oriented x3 and no apparent distress Orientation / Consciousness: awake HEENT normocephalic, head/scalp atraumatic and hearing grossly normal bilaterally Eyes PERRL, EOMs intact bilaterally, conjunctivae normal and no scleral icterus Neck full ROM, supple and no JVD Resp Auscultation: rhonchi throughout (Scattered) Cardio regular rate, regular rhythm, S1 normal heart sound and S2 normal heart sound GI normal to inspection, nondistended, normoactive bowel sounds Extremity no pedal edema Skin no rashes or lesions noted Neuro oriented x3, moves all extremities, no focal motor deficits and no sensory deficits noted Psych mental status grossly normal Assessment & Plan Assessment/Plan (1) NSTEMI, initial episode of care: PLAN: The patient has abnormal troponin I levels compatible with a non-ST segment elevation MN. At the present time it is unclear that this is a acute coronary syndrome type I event as this may be a type II event secondary to her underlying pulmonary disease process and any concerns of thromboembolic disease. Thus at the present time she will continue cardiovascular monitoring and medical support as deemed appropriate. She has undergone additional noninvasive cardiovascular evaluation with transthoracic echocardiogram with results as noted. As her creatinine level has improved overall request will be made for a chest CTA to evaluate for pulmonary emboli. Depending upon her overall findings, once she has improved from the COVID-19 status, she may eventually need evaluation in the cardiac catheterization laboratory. (2) Mitral valve prolapse: PLAN: She has a history of mitral valve prolapse. Her echocardiogram from yesterday is as noted. She has been followed by her primary care physician in the past. (3) COVID-19: PLAN: She continues with a diagnosis of COVID-19. She has been moved to the PCU. She has been requiring O2 nasal cannula. She is proceeding with other supportive medical therapy. (4) Acute respiratory failure with hypoxia: PLAN: She was found to be hypoxic. Again there is concerned this is thought to be related to her COVID-19 status. At the same time there is been concern as to whether or not she has pulmonary emboli. Thus she will undergo further evaluation by chest CTA. She continues medical therapy. This includes IV heparin. (5) Sepsis: QUALIFIERS: Sepsis type: sepsis due to unspecified organism Sepsis acute organ dysfunction status: with acute organ dysfunction Severe sepsis acute organ dysfunction type: acute renal failure Acute renal failure type: unspecified Severe sepsis shock status: without septic shock Qualified Code(s): A41.9 - Sepsis, unspecified organism; R65.20 - Severe sepsis without septic shock; N17.9 - Acute kidney failure, unspecified PLAN: There has been concern of sepsis syndrome as well. She continues with IV antibiotic therapy at this time. (6) TELMA (acute kidney injury): PLAN: Her creatinine level has improved overall. It will need to be followed. (7) Hyperlipemia: QUALIFIERS: Hyperlipidemia type: unspecified Qualified Code(s): E78.5 - Hyperlipidemia, unspecified PLAN: She should continue evaluation care for diagnosis of hyperlipidemia and treatment as deemed appropriate. (8) Hypertension: QUALIFIERS: Hypertension type: essential hypertension Qualified Code(s): I10 - Essential (primary) hypertension PLAN: Her blood pressure does need to be followed for any significant changes. Depending upon her blood pressure medicines may or may not need to be altered. (9) Type 2 diabetes mellitus: QUALIFIERS: Diabetes mellitus continuous churn buttermaker insulin use: with continuous churn buttermaker use Diabetes mellitus complication status: with unspecified complications Qualified Code(s): E11.8 - Type 2 diabetes mellitus with unspecified complications; Z79.4 - termination clerk (current) use of insulin PLAN: She will continue evaluation care per internal medicine. Addt'l Comments This note was generated using a voice recognition system and there may be incorrect words, spelling or punctuation that were not noted when reviewing the office note prior to saving.
[2021-05-06 09:42] LABS: Pathologist Review Reviewed
--- NOTE | 2021-05-06 11:27 | PCM.PN.INT ---
Assessment & Plan Assessment/Plan (1) COVID-19: (2) TELMA (acute kidney injury): (3) Chronic renal disease: QUALIFIERS: Chronic kidney disease stage: stage 2 (mild) Qualified Code(s): N18.2 - Chronic kidney disease, stage 2 (mild) (4) Severe sepsis: (5) Type 2 diabetes mellitus: QUALIFIERS: Diabetes mellitus long term acute care registered nurse insulin use: with long term acute care registered nurse use Diabetes mellitus complication status: with unspecified complications Qualified Code(s): E11.8 - Type 2 diabetes mellitus with unspecified complications; Z79.4 - halfway (current) use of insulin PLAN: RECOMMENDATIONS: 1. Continue vancomycin. Consider decreased gram-negative spectrum 2. No additional fluid resuscitation 3. Potential diuresis once condition stabilizes 4. Reasonable to complete course of Decadron 5. Okay to transition to prophylactic anticoagulation given negative CTA 6. Electrolyte repletion and insulin titration as indicated 7. Add bubble humidification with as needed nasal saline IMPRESSIONS: 1. Severe sepsis secondary to E. coli and staph aureus Unclear source. Patient does have bilateral infiltrates on chest x-ray, but recently had COVID-19. Patient is growing gram-negative's from the blood and is having E. coli growing from the urine. However, staph aureus appears to be significant and patient sputum. Likely okay to narrow gram-negative spectrum given pansensitive E. coli, but would continue vancomycin until cultures are available for staph aureus. 2. Acute hypoxic respiratory failure secondary to COVID-19 with staph aureus pneumonia Patient with bilateral infiltrates. Patient likely does not require Remdesivir, but could complete Decadron from my perspective. Patient did receive significant fluid resuscitation from problem #1 and this may account for increased to 8 L nasal cannula. We will hold off on diuresis at this time until renal function normalizes. Likely okay to discontinue anticoagulation 3. Non-ST elevation OH versus elevated troponin from supply demand mismatch Patient was hypoxic on presentation. However, troponins have persistently been elevated. Patient may have an element of right heart strain secondary to acute hypoxic respiratory failure versus PE. Cardiology is following. 4. Acute kidney injury/hypokalemia Likely secondary to problem #1. Patient has had some improvement from presentation with volume resuscitation. We will continue to follow. There is no indication for renal replacement therapy at this time. 5. Diabetes mellitus type 2/morbid obesity/hyperlipidemia/chronic low back pain/unvaccinated status Complicates care, management, recovery and prognosis. We will have to watch blood sugars closely given patient's need for Decadron therapy. Care with narcotics and benzodiazepines given problem #2. Subjective Subjective Patient did okay overnight. Patient was transferred from the intensive care unit and has been tolerating well. Patient did have a fever overnight, but remained hemodynamically stable. Patient is reporting some nasal stuffiness and subjectively feels better, but not normal. Objective Data Objective Data Vital Signs: Vital Signs Temp Pulse Resp BP Pulse Ox 35.9 C L 87 20 H 122/70 H 96 05/06/21 10:23 05/06/21 10:23 05/06/21 10:23 05/06/21 10:23 05/06/21 10:23 Oxygen Flow Rate (L/min) 15 Oxygen Delivery Method Nasal Cannula Weight: 113.4 kg Body Mass Index (BMI) 41.1 Intake & Output: Intake and Output for Last 24 Hours 05/04/21 05/05/21 05/06/21 23:59 23:59 23:59 Intake Total 4684.75 / 4684.75 1771.75 / 1771.75 853.17 / 853.17 Output Total 25 / 450 / 450 200 / 200 Balance 4659.75 / 4659.75 1321.75 / 1321.75 653.17 / 653.17 Lab / Micro Data Result Diagrams: 05/06/21 06:16 05/06/21 06:16 Labs: Laboratory Results - last 24 hr 05/04/21 14:20: Diff Path Review Reviewed 05/05/21 06:45: Procalcitonin > 50.00 H 05/05/21 11:41: POC Glucose 322 H 05/05/21 14:30: APTT Cancelled 05/05/21 16:00: APTT 88.0 H 05/05/21 17:35: POC Glucose 370 H 05/05/21 22:35: POC Glucose 401 H 05/05/21 23:45: APTT 60.5 H 05/06/21 05:55: POC Glucose 336 H 05/06/21 06:16: WBC 14.3 H, RBC 4.26, Hgb 12.8, Hct 40.2, MCV 94.4, MCH 30.0, MCHC 31.8 L, RDW Std Deviation 47.4 H, RDW Coeff of Eva 13.5, Plt Count 233, MPV 10.0, Immature Gran % (Auto) 2.600 H, Neut % (Auto) 86.5 H, Lymph % (Auto) 5.8 L, Finney % (Auto) 4.4, Eos % (Auto) 0.3, Baso % (Auto) 0.4, Absolute Neuts (auto) 12.4 H, Absolute Lymphs (auto) 0.82 L, Nucleated RBC % 0 05/06/21 06:16: Sodium 140, Potassium 4.2, Chloride 108 H, Carbon Dioxide 23.0, Anion Gap 9, BUN 36 H, Creatinine 1.46 H, Estim Creat Clear Calc 34.57, Est GFR (MDRD) Af Amer 46 L, Est GFR (MDRD) Non-Af 38 L, BUN/Creatinine Ratio 24.7 H, Glucose 334 H, Calcium 8.3 L, Total Bilirubin 0.40, AST 151 H, ALT 62 H, Alkaline Phosphatase 80, Total Protein 5.8 L, Albumin 2.0 L, Globulin 3.8, Albumin/Globulin Ratio 0.5 L Micro: Microbiology 05/04/21 14:20 Blood Culture (Wb) - Anticubital Left Blood Culture - Preliminary Gram negative wedny 05/04/21 15:10 Blood Culture (Wb) - Anticubital Right Blood Culture - Preliminary Gram negative wendy 05/04/21 20:40 Sputum, Expectorated/Coughed Gram Stain - Final 05/04/21 20:40 Sputum, Expectorated/Coughed Respiratory Culture - Preliminary Staphylococcus aureus 05/04/21 20:05 Urine, Clean Catch Urine Culture - Final Escherichia coli 05/04/21 20:05 Urine, Clean Catch Legionella Antigen - Final 05/04/21 20:05 Urine, Clean Catch Streptococcus pneumoniae Antigen (M - Final 05/04/21 14:25 Nasal Secretion SARS-CoV-2 Antigen (Rapid) - Final SARS-CoV-2 (COVID 19) Radiography Diagnostic Testing: Radiology Impression Echocardiogram 05/05/21 05:55 Interpretation Summary Normal LV size. Left ventricular systolic function is normal. The estimated ejection fraction is 55 %. Stage 1 diastolic dysfunction. Mild concentric left ventricular hypertrophy. The study was technically difficult. Ordering Physician: Lisa Solares Referring Physician: Ho Landeros Performed By: Taylor Verduzco, TATOCS, RVT Chest CTA 05/06/21 09:27 IMPRESSION: There is no evidence of pulmonary embolism. Diffuse bilateral pulmonary infiltrates worse in the right hemithorax. Electronically Signed: Tiago Moncada MD at 10:54 EST , Service support , Physical Exam Const alert and oriented x3 Constitutional Narrative: More appropriate responses today General Appearance: cooperative HEENT normocephalic, head/scalp atraumatic, hearing grossly normal bilaterally and moist oral mucous membranes HEENT Narrative: Mallampati 3 Eyes PERRL, EOMs intact bilaterally and conjunctivae normal Eyes Narrative: No scleral icterus Neck no lymphadenopathy, supple, no JVD and no carotid bruits Neck Narrative: Trachea midline, no thyroid enlargement Chest inspection of chest normal Chest: symmetrical chest wall rise; Negative for crepitus Resp no retractions and no use of accessory muscles Auscultation: diminished lung sounds diffuse; Negative for rales, rhonchi or wheezes Cardio regular rhythm, S1 normal heart sound, S2 normal heart sound, no murmurs, no rub, no gallops, no clicks and no JVD GI normal to inspection, nondistended, normoactive bowel sounds, soft to palpation, non-tender and non-distended Extremity no clubbing, cyanosis or edema Peripheral Pulses: Yes pulses 2+ throughout Skin no rashes or lesions noted, no wounds, skin turgor normal, no jaundice, no petechiae and no mottling Neuro oriented x3, CN's II-XII intact bilaterally, moves all extremities and no focal motor deficits Neuro Narrative: Generalized weakness Sensorium / Orientation: awake and alert Speech: speech normal Psych affect normal Charges/Coding Visit Charges Inpatient E&M: 72125 Subs Hosp L3
[2021-05-06 11:41] LABS: Bedside Glucose 407 mg/dL (70-110)
[2021-05-06] MEDS: Sodium Chloride 0.65% 1 SPRAY SPRAY.BTL 2 SPRAY NASAL (13:10)
--- NOTE | 2021-05-06 14:40 | PCM.PN.HOSP ---
Subjective Subjective Increased oxygen requirements. Objective Data Objective Data Vital Signs: Vital Signs Temp Pulse Resp BP Pulse Ox 35.9 C L 87 20 H 122/70 H 92 05/06/21 10:23 05/06/21 10:23 05/06/21 10:23 05/06/21 10:23 05/06/21 14:24 Oxygen Flow Rate (L/min) 10 Oxygen Delivery Method Nasal Cannula Weight: 113.4 kg Body Mass Index (BMI) 41.1 Intake & Output: Intake and Output for Last 24 Hours 05/04/21 05/05/21 05/06/21 23:59 23:59 23:59 Intake Total 4684.75 / 4684.75 1771.75 / 1771.75 853.17 / 853.17 Output Total 450 / 450 200 / 200 Balance 4659.75 / 4659.75 1321.75 / 1321.75 653.17 / 653.17 Lab / Micro Data Result Diagrams: 05/06/21 06:16 05/06/21 06:16 Labs: Laboratory Results - last 24 hr 05/04/21 14:20: Diff Path Review Reviewed 05/05/21 06:45: Procalcitonin > 50.00 H 05/05/21 14:30: APTT Cancelled 05/05/21 16:00: APTT 88.0 H 05/05/21 17:35: POC Glucose 370 H 05/05/21 22:35: POC Glucose 401 H 05/05/21 23:45: APTT 60.5 H 05/06/21 05:55: POC Glucose 336 H 05/06/21 06:16: WBC 14.3 H, RBC 4.26, Hgb 12.8, Hct 40.2, MCV 94.4, MCH 30.0, MCHC 31.8 L, RDW Std Deviation 47.4 H, RDW Coeff of Eva 13.5, Plt Count 233, MPV 10.0, Immature Gran % (Auto) 2.600 H, Neut % (Auto) 86.5 H, Lymph % (Auto) 5.8 L, [place] % (Auto) 4.4, Eos % (Auto) 0.3, Baso % (Auto) 0.4, Absolute Neuts (auto) 12.4 H, Absolute Lymphs (auto) 0.82 L, Nucleated RBC % 0 05/06/21 06:16: Sodium 140, Potassium 4.2, Chloride 108 H, Carbon Dioxide 23.0, Anion Gap 9, BUN 36 H, Creatinine 1.46 H, Estim Creat Clear Calc 34.57, Est GFR (MDRD) Af Amer 46 L, Est GFR (MDRD) Non-Af 38 L, BUN/Creatinine Ratio 24.7 H, Glucose 334 H, Calcium 8.3 L, Total Bilirubin 0.40, AST 151 H, ALT 62 H, Alkaline Phosphatase 80, Total Protein 5.8 L, Albumin 2.0 L, Globulin 3.8, Albumin/Globulin Ratio 0.5 L 05/06/21 11:22: POC Glucose 407 H Micro: Microbiology 05/04/21 14:20 Blood Culture (Wb) - Anticubital Left Blood Culture - Preliminary Gram negative wendy 05/04/21 15:10 Blood Culture (Wb) - Anticubital Right Blood Culture - Preliminary Gram negative wendy 05/04/21 20:40 Sputum, Expectorated/Coughed Gram Stain - Final 05/04/21 20:40 Sputum, Expectorated/Coughed Respiratory Culture - Preliminary Staphylococcus aureus 05/04/21 20:05 Urine, Clean Catch Urine Culture - Final Escherichia coli 05/04/21 20:05 Urine, Clean Catch Legionella Antigen - Final 05/04/21 20:05 Urine, Clean Catch Streptococcus pneumoniae Antigen (M - Final 05/04/21 14:25 Nasal Secretion SARS-CoV-2 Antigen (Rapid) - Final SARS-CoV-2 (COVID 19) Radiography Diagnostic Testing: Radiology Impression Chest CTA 05/06/21 09:27 IMPRESSION: There is no evidence of pulmonary embolism. Diffuse bilateral pulmonary infiltrates worse in the right hemithorax. Electronically Signed: Tiago Moncada MD at 10:54 EST , Service support , Physical Exam Const alert and no apparent distress Constitutional Narrative: no respiratory distress Resp Resp Narrative: coarse BS bilaterally. Cardio regular rate, regular rhythm, S1 normal heart sound and S2 normal heart sound GI normal to inspection, nondistended, normoactive bowel sounds, soft to palpation, non-tender and non-distended Assessment & Plan Assessment/Plan (1) Acute respiratory failure with hypoxia: (2) NSTEMI, initial episode of care: (3) Sepsis: QUALIFIERS: Sepsis type: sepsis due to unspecified organism Sepsis acute organ dysfunction status: with acute organ dysfunction Severe sepsis acute organ dysfunction type: acute renal failure Acute renal failure type: unspecified Severe sepsis shock status: without septic shock Qualified Code(s): A41.9 - Sepsis, unspecified organism; R65.20 - Severe sepsis without septic shock; N17.9 - Acute kidney failure, unspecified (4) COVID-19: (5) TELMA (acute kidney injury): PLAN: 1. Acute hypoxic respiratory failure worse Secondary to COVID-19 and staph pneumonia Cannot rule out pulmonary embolism secondary bacterial infections Wean oxygen as able Will need CTA as Cr improves Therapeutic enoxaparin furosemide challenge 2. Non-ST elevation myocardial infarction Suspect type II given resp failure and sepsis Cardiology following Echo shows EF 55% Anticoagulated 3. Sepsis Patient needs criteria for sepsis based on SEP 1 criteria. qSOFA score upon admission was 1 on admission and therefore did not meet SEP 3 criteria. Patient with staph in her sputum and gram-negative rods in her urine. Continue with Vanco and pip tazo and de-escalate based on final culture results. 2/2 Pneumonia, UTI and bacteremia 4. COVID 19 pneumonia Unvaccinated on dexamethasone 5. Step aureus pneumonia On vancomycin 6. UTI 2/2 santos sensitive E. coli. currently on pip/tazo 7. Bacteremia likely 2/2 UTI continue pip/tazo 8. Lactic acidosis May be multifactorial due to sepsis as well as acute hypoxic respiratory failure 9. VTE prophylaxis: Not indicated as patient is currently anticoagulated. Charges/Coding Visit Charges Inpatient E&M: 00740 [facility] Hosp L3
[2021-05-06] MEDS: Furosemide 40 MG/4 ML Vial IV (16:07)
[2021-05-06 16:20] LABS: Bedside Glucose 409 mg/dL (70-110)
--- NOTE | 2021-05-06 17:16 | CASEMGMT ---
SW will check with patient about which facility she would like to go to as [facility] does not have any beds and [facility] is out of network with her insurance. Neeta Mcfarlane [employer] JEFFREY
[2021-05-06 22:06] LABS: Bedside Glucose 321 mg/dL (70-110)
[2021-05-07] VITALS (17 sets, daily range): BP systolic 137–188; BP diastolic 65–88; PULSE 74–97; RESP 20–31; TEMP 35.7–36.9; O2SAT 90–97
[2021-05-07] MEDS: hydrALAZINE 20 MG/ML Vial 10 MG IV (03:40)
[2021-05-07] MEDS: Enoxaparin 120 MG/0.8 ML Syringe 110 MG SC (05:01)
[2021-05-07] MEDS: 0.9% Saline Lock 10 ML Syringe IV (05:02)
[2021-05-07] MEDS: Insulin Lispro 100 UNIT/ML INSULN.PEN SC ×4 (06:49→22:00)
[2021-05-07 06:55] LABS: Bedside Glucose 284 mg/dL (70-110)
[2021-05-07 07:14] LABS: Absolute Lymphocyte Count 1.13 X10^3/uL (0.83-4.51); Absolute Neutrophil Count 10.3 X10^3/uL (2.0-7.7); Basophil# 0.05 X10^3/uL; Basophil% 0.4 % (0-1); Hematocrit 38.6 % (37-47); Hemoglobin 12.5 g/dL (12.0-15.0); Lymphocyte # 1.13 X10^3/ul (0.83-4.51); Lymphocyte % 8.9 % (19-41); Mean Corp Hgb Conc 32.4 g/dL (32-36); Mean Corpuscular Hgb 30.3 pg (27.0-32.0); Mean Corpuscular Volume 93.7 fL (81-99); Mean Platelet Vol. 9.9 fl (6.2-12.0); Monocyte# 0.77 X10^3/uL; Monocyte% 6.1 % (0-10); NRBC Flagged by Analyzer 0 % (0-5); Neutrophil # 10.32 X10^3/uL (2.7-7.7); Neutrophil % 81.4 % (47-70); Platelet Count 251 K/mm3 (150-450); RBC Distribution Width CV 13.5 % (11.6-14.6); RBC Distribution Width SD 45.8 fl (35.1-43.9); Red Blood Count 4.12 M/mm3 (4.2-5.4); White Blood Count 12.7 K/mm3 (4.4-11.0)
[2021-05-07 07:44] LABS: ALB/GLOB Ratio 0.6 RATIO (0.9-2.4); AST(SGOT) 72 U/L (15-37); Alanine Aminotransfer ALT/SGPT 58 U/L (13-56); Albumin, Serum 2.1 g/dL (3.2-5.0); Alkaline Phosphatase 72 U/L (45-117); Anion Gap 8 (5-15); BUN 37 mg/dL (7-18); BUN/Creat Ratio 27.8 RATIO (10-20); Calcium,Total 8.6 mg/dL (8.5-10.1); Chloride 106 mmol/L (98-107); Creatinine, Serum 1.33 mg/dL (0.55-1.02); EST Glomerular Filtration Rate 43 mL/min (>60); Est Glom Filt Rate - Afr Amer 51 mL/min (>60); Estimated Creatinine Clearance 37.95 ml/min; Globulin 3.5 g/dL (2.2-4.2); Glucose 262 mg/dL (74-106); Potassium 4.4 mmol/L (3.5-5.1); Protein, Total 5.6 g/dL (6.4-8.2); Sodium Level 139 mmol/L (136-145)
[2021-05-07] MEDS: Acetaminophen 325 MG Tablet 650 MG PO ×2 (09:02→22:02)
[2021-05-07] MEDS: amLODIPine 5 MG Tablet PO (09:02)
[2021-05-07] MEDS: Sodium Chloride 0.65% 1 SPRAY SPRAY.BTL 2 SPRAY NASAL ×2 (09:02→17:22)
[2021-05-07] MEDS: Labetalol 200 MG Tablet PO ×2 (09:03→22:01)
[2021-05-07] MEDS: tiZANidine HCl 2 MG Tablet 4 MG PO (09:03)
[2021-05-07] MEDS: Ascorbic Acid 500 MG Tablet 1000 MG PO (09:03)
[2021-05-07] MEDS: Furosemide 20 MG Tablet PO (09:03)
[2021-05-07] MEDS: Aspirin 81 MG TAB.CHEW PO (09:03)
[2021-05-07] MEDS: Lisinopril 40 MG Tablet PO (09:03)
[2021-05-07] MEDS: dexAMETHasone 4 MG Tablet 6 MG PO (09:03)
[2021-05-07] MEDS: Loperamide 2 MG Capsule PO (09:52)
[2021-05-07 11:30] LABS: Bedside Glucose 343 mg/dL (70-110)
--- NOTE | 2021-05-07 13:53 | CASEMGMT ---
SW met with patient. Introduced self and role at [facility]. SW let patient know that [facility] is full and [facility] is not in network with her insurance. SW provided patient with a list of SNF providers including quality and resource use data and consistent with the patient?s preferred geographic region, medical needs, and insurance network. SW pointed out to her that the facilities highlighted in pink take her insurance. SW let her know she has more options for intermediate now since she is 10 days past her positive COVID test. She would like to be close to her home. SW went over the list with her and she would like SW to send referrals to [facility]. SW faxed referrals to [facility] and [facility]. CAMILA also spoke with both facilities regarding referrals. Neeta MURPHY
--- NOTE | 2021-05-07 13:59 | CASEMGMT ---
CAMILA spoke with Ioana from [facility] and they are full. CAMILA spoke with Veronica from [facility] and they can accept patient. SW notified patient and she was in agreement with this plan. She was a little disappointed as she was hoping to go to [facility] as her daughter works there. She understands they are out of network. She wanted ACMILA to call her daughter Vanessa, but her number is not listed on her demographics. She was okay with CAMILA calling her other daughter Dahlia. CAMILA called Dahlia and let her know above information. She thanked CAMILA for letting her know the plan. Plan: d/c to [facility] under skilled level of care when medically ready. Her O2 will have to be 10L or less. Neeta MURPHY
--- NOTE | 2021-05-07 14:23 | PCM.PN.HOSP ---
Subjective Subjective On the phone speaking to someone about grocery store transactions. Objective Data Objective Data Vital Signs: Vital Signs Temp Pulse Resp BP Pulse Ox 35.7 C L 90 20 H 167/79 H 94 05/07/21 09:01 05/07/21 09:01 05/07/21 09:01 05/07/21 09:01 05/07/21 13:59 Oxygen Flow Rate (L/min) 2 Oxygen Delivery Method Nasal Cannula Weight: 114.9 kg Body Mass Index (BMI) 41.1 Intake & Output: Intake and Output for Last 24 Hours 05/05/21 05/06/21 05/07/21 23:59 23:59 23:59 Intake Total 1771.75 / 1771.75 1913.17 / 2313.17 1280 / 1280 Output Total 450 / 450 1250 / 1650 1100 / 1100 Balance 1321.75 / 1321.75 663.17 / 663.17 180 / 180 Lab / Micro Data Result Diagrams: 05/07/21 06:55 05/07/21 06:55 Labs: Laboratory Results - last 24 hr 05/06/21 16:04: POC Glucose 409 H 05/06/21 21:40: POC Glucose 321 H 05/07/21 06:48: POC Glucose 284 H 05/07/21 06:55: WBC 12.7 H, RBC 4.12 L, Hgb 12.5, Hct 38.6, MCV 93.7, MCH 30.3, MCHC 32.4, RDW Std Deviation 45.8 H, RDW Coeff of Eva 13.5, Plt Count 251, MPV 9.9, Immature Gran % (Auto) 3.200 H, Neut % (Auto) 81.4 H, Lymph % (Auto) 8.9 L, [place] % (Auto) 6.1, Eos % (Auto) 0.0, Baso % (Auto) 0.4, Absolute Neuts (auto) 10.3 H, Absolute Lymphs (auto) 1.13, Nucleated RBC % 0 05/07/21 06:55: Sodium 139, Potassium 4.4, Chloride 106, Carbon Dioxide 25.0, Anion Gap 8, BUN 37 H, Creatinine 1.33 H, Estim Creat Clear Calc 37.95, Est GFR (MDRD) Af Amer 51 L, Est GFR (MDRD) Non-Af 43 L, BUN/Creatinine Ratio 27.8 H, Glucose 262 H, Calcium 8.6, Total Bilirubin 0.50, AST 72 H, ALT 58 H, Alkaline Phosphatase 72, Total Protein 5.6 L, Albumin 2.1 L, Globulin 3.5, Albumin/Globulin Ratio 0.6 L 05/07/21 11:23: POC Glucose 343 H Micro: Microbiology 05/04/21 15:10 Blood Culture (Wb) - Anticubital Right Blood Culture - Final Gram negative wendy 05/04/21 14:20 Blood Culture (Wb) - Anticubital Left Blood Culture - Final Escherichia coli 05/04/21 20:40 Sputum, Expectorated/Coughed Gram Stain - Final 05/04/21 20:40 Sputum, Expectorated/Coughed Respiratory Culture - Final Staphylococcus aureus 05/04/21 20:05 Urine, Clean Catch Urine Culture - Final Escherichia coli 05/04/21 20:05 Urine, Clean Catch Legionella Antigen - Final 05/04/21 20:05 Urine, Clean Catch Streptococcus pneumoniae Antigen (M - Final 05/04/21 14:25 Nasal Secretion SARS-CoV-2 Antigen (Rapid) - Final SARS-CoV-2 (COVID 19) Physical Exam Const Constitutional Narrative: Saw me in the room. Speaking on the phone with someone, but made no attempts to engage me or get off the phone. After about 5 minutes I left the room. On NC. No respiratory distress. No exam was performed. Assessment & Plan Assessment/Plan (1) Acute respiratory failure with hypoxia: (2) NSTEMI, initial episode of care: (3) Sepsis: QUALIFIERS: Sepsis type: sepsis due to unspecified organism Sepsis acute organ dysfunction status: with acute organ dysfunction Severe sepsis acute organ dysfunction type: acute renal failure Acute renal failure type: unspecified Severe sepsis shock status: without septic shock Qualified Code(s): A41.9 - Sepsis, unspecified organism; R65.20 - Severe sepsis without septic shock; N17.9 - Acute kidney failure, unspecified (4) COVID-19: (5) TELMA (acute kidney injury): PLAN: 1. Acute hypoxic respiratory failure improved Secondary to COVID-19 and staph pneumonia Wean oxygen as able CTA negative for PE furosemide challenge 2. Non-ST elevation myocardial infarction Suspect type II given resp failure and sepsis Cardiology following Echo shows EF 55% Anticoagulated on ASA Will need further cardiac evaluation, timing of which to be determined by cardiology 3. Sepsis Patient met criteria for sepsis based on SEP 1 criteria. qSOFA score upon admission was 1 on admission and therefore did not meet SEP 3 criteria. 2/2 UTI, bacterial pneumonia and COVID 19 4. COVID 19 pneumonia Unvaccinated on dexamethasone 5. MSSA change to LVQ 6. UTI 2/2 santos sensitive E. coli. LVQ 7. Bacteremia likely 2/2 E. coli LVQ. treat total of 10 days of abx. 8. Lactic acidosis May be multifactorial due to sepsis as well as acute hypoxic respiratory failure 9. VTE prophylaxis: enoxaparin Charges/Coding Visit Charges Inpatient E&M: 57523 [facility] Hosp L1
--- NOTE | 2021-05-07 14:41 | PN.CC_ITS ---
Assessment & Plan Assessment/Plan (1) COVID-19: (2) TELMA (acute kidney injury): (3) Chronic renal disease: QUALIFIERS: Chronic kidney disease stage: stage 2 (mild) Qualifi ed Code(s): N18.2 - Chronic kidney disease, stage 2 (mild) (4) Severe sepsis: (5) Type 2 diabetes mellitus: QUALIFIERS: 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: with termite exterminator helper use Diabetes mellitus complication status: with unspecified complications Qualified Code(s): E11.8 - Type 2 diabetes mellitus with unspecified complications; Z79.4 - vermin exterminator (current) use of insulin PLAN: RECOMMENDATIONS: 1. Could consider discontinuation of vancomycin 2. Completed 10-day course of Levaquin 3. Agree with gentle diuresis 4. Reasonable to complete a 10-day course of Decadron 5. Okay to transition to prophylactic anticoagulation given negative CTA 6. Electrolyte repletion and insulin titration as indicated 7. Hemodynamically stable on minimal nasal cannula oxygen. Will follow peripherally. Please call with issues IMPRESSIONS: 1. Severe sepsis secondary to E. coli and staph aureus Unclear source. Patient does have bilateral infiltrates on chest x-ray, but recently had COVID-19. Patient is growing gram-negative's from the blood and is having E. coli growing from the urine. However, staph aureus appears to be significant and patient sputum. Patient appears to have MSSA and E. coli that is pansensitive. Okay to discontinue vancomycin from my perspective and completed 10-day course of Levaquin secondary to bacteremia 2. Acute hypoxic respiratory failure secondary to COVID-19 with staph aureus pneumonia Patient with bilateral infiltrates. Patient likely does not require Remdesivir, but could complete Decadron from my perspective. Patient did receive significant fluid resuscitation from problem #1 and this may account for increased to 8 L nasal cannula. Patient appears to be improving rapidly with diuresis. Patient will need a walking oximetry prior to discharge. If supplemental oxygen is required, patient can follow-up in our office in 4 to 6 weeks for evaluation 3. Non-ST elevation [place] versus elevated troponin from supply demand mismatch Patient was hypoxic on presentation. However, troponins have persistently been elevated. Patient may have an element of right heart strain secondary to acute hypoxic respiratory failure. Cardiology is following. 4. Acute kidney injury/hypokalemia Slowly improving likely secondary to problem #1. Patient has had some improvement from presentation with volume resuscitation. We will continue to follow. There is no indication for renal replacement therapy at this time. 5. Diabetes mellitus type 2/morbid obesity/hyperlipidemia/chronic low back pain/unvaccinated status Complicates care, management, recovery and prognosis. We will have to watch blood sugars closely given patient's need for Decadron therapy. Care with narcotics and benzodiazepines given problem #2. Subjective Subjective Patient reports no subjective change compared to yesterday, but is more worried about clinical issues compared to yesterday. Patient continues to require supplemental oxygen, but no coughing is reported. Objective Data Objective Data Vital Signs: Vital Signs Temp Pulse Resp BP Pulse Ox 35.7 C L 90 20 H 167/79 H 94 05/07/21 09:01 05/07/21 09:01 05/07/21 09:01 05/07/21 09:01 05/07/21 13:59 Oxygen Flow Rate (L/min) 2 Oxygen Delivery Method Nasal Cannula Weight: 114.9 kg Body Mass Index (BMI) 41.1 Intake & Output: Intake and Output for Last 24 Hours 05/05/21 05/06/21 05/07/21 23:59 23:59 23:59 Intake Total 1771.75 / 1771.75 1913.17 / 2313.17 1280 / 1280 Output Total 450 / 450 1250 / 1650 1100 / 1100 Balance 1321.75 / 1321.75 663.17 / 663.17 180 / 180 Lab / Micro Data Result Diagrams: 05/07/21 06:55 05/07/21 06:55 Labs: Laboratory Results - last 24 hr 05/06/21 16:04: POC Glucose 409 H 05/06/21 21:40: POC Glucose 321 H 05/07/21 06:48: POC Glucose 284 H 05/07/21 06:55: WBC 12.7 H, RBC 4.12 L, Hgb 12.5, Hct 38.6, MCV 93.7, MCH 30.3, MCHC 32.4, RDW Std Deviation 45.8 H, RDW Coeff of Eva 13.5, Plt Count 251, MPV 9.9, Immature Gran % (Auto) 3.200 H, Neut % (Auto) 81.4 H, Lymph % (Auto) 8.9 L, [place] % (Auto) 6.1, Eos % (Auto) 0.0, Baso % (Auto) 0.4, Absolute Neuts (auto) 10.3 H, Absolute Lymphs (auto) 1.13, Nucleated RBC % 0 05/07/21 06:55: Sodium 139, Potassium 4.4, Chloride 106, Carbon Dioxide 25.0, Anion Gap 8, BUN 37 H, Creatinine 1.33 H, Estim Creat Clear Calc 37.95, Est GFR (MDRD) Af Amer 51 L, Est GFR (MDRD) Non-Af 43 L, BUN/Creatinine Ratio 27.8 H, Glucose 262 H, Calcium 8.6, Total Bilirubin 0.50, AST 72 H, ALT 58 H, Alkaline P hosphatase 72, Total Protein 5.6 L, Albumin 2.1 L, Globulin 3.5, Albumin/Globulin Ratio 0.6 L 05/07/21 11:23: POC Glucose 343 H Micro: Microbiology 05/04/21 15:10 Blood Culture (Wb) - Anticubital Right Blood Culture - Final Gram negative wendy 05/04/21 14:20 Blood Culture (Wb) - Anticubital Left Blood Culture - Final Escherichia coli 05/04/21 20:40 Sputum, Expectorated/Coughed Gram Stain - Final 05/04/21 20:40 Sputum, Expectorated/Coughed Respiratory Culture - Final Staphylococcus aureus 05/04/21 20:05 Urine, Clean Catch Urine Culture - Final Escherichia coli 05/04/21 20:05 Urine, Clean Catch Legionella Antigen - Final 05/04/21 20:05 Urine, Clean Catch Streptococcus pneumoniae Antigen (M - Final 05/04/21 14:25 Nasal Secretion SARS-CoV-2 Antigen (Rapid) - Final SARS-CoV-2 (COVID 19) Physical Exam Const alert and oriented x3 Constitutional Narrative: Patient ignored me initially General Appearance: cooperative HEENT normocephalic, head/scalp atraumatic, hearing grossly normal bilaterally and moist oral mucous membranes HEENT Narrative: Mallampati 3 Eyes PERRL, EOMs intact bilaterally and conjunctivae normal Eyes Narrative: No scleral icterus Neck no lymphadenopathy, supple, no JVD and no carotid bruits Neck Narrative: Trachea midline, no thyroid enlargement Chest inspection of chest normal Chest: symmetrical chest wall rise; Negative for crepitus Resp no retractions and no use of accessory muscles Auscultation: diminished lung sounds diffuse; Negative for rales, rhonchi or wheezes Cardio regular rhythm, S1 normal heart sound, S2 normal heart sound, no murmurs, no rub, no gallops, no clicks and no JVD GI normal to inspection, nondistended, normoactive bowel sounds, soft to palpation, non-tender and non-distended Extremity no clubbing, cyanosis or edema Peripheral Pulses: Yes pulses 2+ throughout Skin no rashes or lesions noted, no wounds, skin turgor normal, no jaundice, no petechiae and no mottling Neuro oriented x3, CN's II-XII intact bilaterally, moves all extremities and no focal motor deficits Neuro Narrative: Generalized weakness Sensorium / Orientation: awake and alert Speech: speech normal Psych affect normal Charges/Coding Visit Charges Inpatient E&M: 90758 [facility] Hosp L2
[2021-05-07] MEDS: levoFLOXacin IV 500 MG/100 ML BAG 100 MG IV (15:17)
--- NOTE | 2021-05-07 16:55 | PCM.PN.CARD ---
Subjective Subjective The patient remains Covid precautions. There has been no report of any acute cardiovascular symptoms such as chest pain. Objective Data Vital Signs: Vital Signs Temp Pulse Resp BP Pulse Ox 96.6 F L 85 20 H 137/65 H 94 05/07/21 15:00 05/07/21 15:00 05/07/21 15:00 05/07/21 15:00 05/07/21 15:00 Oxygen Flow Rate (L/min) 2 Oxygen Delivery Method Nasal Cannula Weight: 253 lb 4.978 oz Body Mass Index (BMI) 41.1 Intake & Output: Intake and Output for Last 24 Hours 05/05/21 05/06/21 05/07/21 23:59 23:59 23:59 Intake Total 1771.75 / 1771.75 1913.17 / 2313.17 1380 / 1380 Output Total 450 / 450 1250 / 1650 1100 / 1100 Balance 1321.75 / 1321.75 663.17 / 663.17 280 / 280 Lab / Micro Data Result Diagrams: 05/07/21 06:55 05/07/21 06:55 Labs: Laboratory Results - last 24 hr 05/06/21 21:40: POC Glucose 321 H 05/07/21 06:48: POC Glucose 284 H 05/07/21 06:55: WBC 12.7 H, RBC 4.12 L, Hgb 12.5, Hct 38.6, MCV 93.7, MCH 30.3, MCHC 32.4, RDW Std Deviation 45.8 H, RDW Coeff of Eva 13.5, Plt Count 251, MPV 9.9, Immature Gran % (Auto) 3.200 H, Neut % (Auto) 81.4 H, Lymph % (Auto) 8.9 L, Weston % (Auto) 6.1, Eos % (Auto) 0.0, Baso % (Auto) 0.4, Absolute Neuts (auto) 10.3 H, Absolute Lymphs (auto) 1.13, Nucleated RBC % 0 05/07/21 06:55: Sodium 139, Potassium 4.4, Chloride 106, Carbon Dioxide 25.0, Anion Gap 8, BUN 37 H, Creatinine 1.33 H, Estim Creat Clear Calc 37.95, Est GFR (MDRD) Af Amer 51 L, Est GFR (MDRD) Non-Af 43 L, BUN/Creatinine Ratio 27.8 H, Glucose 262 H, Calcium 8.6, Total Bilirubin 0.50, AST 72 H, ALT 58 H, Alkaline Phosphatase 72, Total Protein 5.6 L, Albumin 2.1 L, Globulin 3.5, Albumin/Globulin Ratio 0.6 L 05/07/21 11:23: POC Glucose 343 H Micro: Microbiology 05/04/21 15:10 Blood Culture (Wb) - Anticubital Right Blood Culture - Final Gram negative wendy 05/04/21 14:20 Blood Culture (Wb) - Anticubital Left Blood Culture - Final Escherichia coli 05/04/21 20:40 Sputum, Expectorated/Coughed Gram Stain - Final 05/04/21 20:40 Sputum, Expectorated/Coughed Respiratory Culture - Final Staphylococcus aureus Cardiology Labs/Tests 05/07/21 06:55: WBC 12.7 H, RBC 4.12 L, Hgb 12.5, Hct 38.6, MCV 93.7, MCH 30.3, MCHC 32.4, Plt Count 251, MPV 9.9, Immature Gran % (Auto) 3.200 H, Neut % (Auto) 81.4 H, Lymph % (Auto) 8.9 L, Weston % (Auto) 6.1, Eos % (Auto) 0.0, Baso % (Auto) 0.4, Absolute Neuts (auto) 10.3 H, Nucleated RBC % 0 05/07/21 06:55: Sodium 139, Potassium 4.4, Chloride 106, Carbon Dioxide 25.0, Anion Gap 8, BUN 37 H, Creatinine 1.33 H, Est GFR (MDRD) Af Amer 51 L, Est GFR (MDRD) Non-Af 43 L, BUN/Creatinine Ratio 27.8 H, Glucose 262 H, Calcium 8.6, Total Bilirubin 0.50 Rhythm: sinus rhythm Physical Exam Const alert, oriented x3 and no apparent distress Orientation / Consciousness: awake HEENT normocephalic, head/scalp atraumatic and hearing grossly normal bilaterally Eyes PERRL, EOMs intact bilaterally, conjunctivae normal and no scleral icterus Neck full ROM, supple and no JVD Resp Auscultation: rhonchi throughout (Scattered) Cardio regular rate, regular rhythm, S1 normal heart sound and S2 normal heart sound GI normal to inspection, nondistended, normoactive bowel sounds Extremity no pedal edema Skin no rashes or lesions noted Neuro oriented x3, moves all extremities, no focal motor deficits and no sensory deficits noted Psych mental status grossly normal Assessment & Plan Assessment/Plan (1) NSTEMI, initial episode of care: PLAN: The patient has abnormal troponin I levels compatible with a non-ST segment elevation AR. At the present time it is unclear that this is a acute coronary syndrome type I event as this may be a type II event secondary to her underlying pulmonary disease process. She has undergone additional noninvasive cardiovascular evaluation with transthoracic echocardiogram with results as noted. She has undergone chest CTA. It was negative for thromboembolic disease or great vessel disease. Depending upon her overall findings, once she has improved from the COVID-19 status, she may eventually need evaluation in the cardiac catheterization laboratory. (2) Mitral valve prolapse: PLAN: She has a history of mitral valve prolapse. Her echocardiogram from yesterday is as noted. She has been followed by her primary care physician in the past. (3) COVID-19: PLAN: She continues with a diagnosis of COVID-19. She has been moved to the PCU. She has been requiring O2 nasal cannula. She is proceeding with other supportive medical therapy. (4) Acute respiratory failure with hypoxia: PLAN: She was found to be hypoxic. Again there is concerned this is thought to be related to her COVID-19 status. Again she underwent chest CTA. It was negative for any thromboembolic disease. She continues medical therapy. This includes IV heparin. (5) Sepsis: QUALIFIERS: Sepsis type: sepsis due to unspecified organism Sepsis acute organ dysfunction status: with acute organ dysfunction Severe sepsis acute organ dysfunction type: acute renal failure Acute renal failure type: unspecified Severe sepsis shock status: without septic shock Qualified Code(s): A41.9 - Sepsis, unspecified organism; R65.20 - Severe sepsis without septic shock; N17.9 - Acute kidney failure, unspecified PLAN: There has been concern of sepsis syndrome as well. She continues with IV antibiotic therapy at this time. (6) TELMA (acute kidney injury): PLAN: Her creatinine level has improved overall. It will need to be followed. (7) Hyperlipemia: QUALIFIERS: Hyperlipidemia type: unspecified Qualified Code(s): E78.5 - Hyperlipidemia, unspecified PLAN: She should continue evaluation care for diagnosis of hyperlipidemia and treatment as deemed appropriate. (8) Hypertension: QUALIFIERS: Hypertension type: essential hypertension Qualified Code(s): I10 - Essential (primary) hypertension PLAN: Her blood pressure does need to be followed for any significant changes. Depending upon her blood pressure medicines may or may not need to be altered. 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 Addt'l Comments Overall, from a cardiac standpoint, she will continue medical management. She will continue evaluation care for her noncardiac comorbidities by internal medicine and pulmonology/critical care medicine. As previously noted, as long as she remains stable from a cardiovascular standpoint, after she recuperates from her noncardiac comorbidities then she can be considered for further cardiac evaluation as deemed appropriate at the time which depending upon her clinical course may include diagnostic cardiac catheterization. Thank you for allowing me to participate in the care of your patient. Please don't hesitate to call if any issues arise. This note was generated using a voice recognition system and there may be incorrect words, spelling or punctuation that were not noted when reviewing the office note prior to saving.
[2021-05-07 17:31] LABS: Bedside Glucose 361 mg/dL (70-110)
[2021-05-07 18:03] LABS: Vancomycin, Trough Level 14.2 ug/mL (5.0-15.0)
--- NOTE | 2021-05-07 21:02 | PCM.RX.CS ---
Consult Pharmacy has been consulted to manage selected antiobiotic: Vancomycin Type of Consult: Follow-up Prior Doses of Antibiotics Received/Current Regimen: Medications Vancomycin HCl 1,500 mg/ (Sodium Chloride) 530 mls @ 250 mls/hr IV Q24H ISSAC Last Admin: 05/07/21 20:10 Dose: Infused Documented by: Labs: Sodium 139 mmol/L (136-145) 05/07/21 06:55 Potassium 4.4 mmol/L (3.5-5.1) 05/07/21 06:55 Chloride 106 mmol/L (98-107) 05/07/21 06:55 Carbon Dioxide 25.0 mmol/L (21.0-32.0) 05/07/21 06:55 Anion Gap 8 (5-15) 05/07/21 06:55 BUN 37 mg/dL (7-18) H 05/07/21 06:55 Creatinine 1.33 mg/dL (0.55-1.02) H 05/07/21 06:55 Est GFR (MDRD) Af Amer 51 mL/min (>60) L 05/07/21 06:55 Est GFR (MDRD) Non-Af 43 mL/min (>60) L 05/07/21 06:55 BUN/Creatinine Ratio 27.8 RATIO (10-20) H 05/07/21 06:55 Glucose 262 mg/dL (74-106) H 05/07/21 06:55 Vancomycin Trough 14.2 ug/mL (5.0-15.0) 05/07/21 16:37 Microbiology: Microbiology 05/04/21 15:10 Blood Culture (Wb) - Anticubital Right Blood Culture - Final Gram negative wendy 05/04/21 14:20 Blood Culture (Wb) - Anticubital Left Blood Culture - Final Escherichia coli 05/04/21 20:40 Sputum, Expectorated/Coughed Gram Stain - Final 05/04/21 20:40 Sputum, Expectorated/Coughed Respiratory Culture - Final Staphylococcus aureus 05/04/21 20:05 Urine, Clean Catch Urine Culture - Final Escherichia coli 05/04/21 20:05 Urine, Clean Catch Legionella Antigen - Final 05/04/21 20:05 Urine, Clean Catch Streptococcus pneumoniae Antigen (M - Final 05/04/21 14:25 Nasal Secretion SARS-CoV-2 Antigen (Rapid) - Final SARS-CoV-2 (COVID 19) Goal Trough: 15-20 mcg/mL Pharmacy Plan for Drug Dosing: q24 hour trough slightly below goal. Recommend to continue and recheck in 2 days. Pharmacy Service will continue to monitor and adjust dosing as required. Follow-Up Labs: Trough Vancomycin - 05/09 @ 1630
[2021-05-07] MEDS: Atorvastatin Calcium 40 MG Tablet PO (22:01)
--- NOTE | 2021-05-07 22:19 | CT_ITS ---
INDICATION: encephalopathy EXAMINATION: CT BRAIN - CT Head or Brain W/O Contrast Injection TECHNIQUE: Multiple axial images were obtained of the head without intravenous contrast. A radiation dose optimization technique was used for this scan. IV Contrast dosage and agent: None. COMPARISON: None. FINDINGS: BRAIN PARENCHYMA: No intra- or extra-axial hemorrhage. No intracranial mass or mass effect. Dye/white matter differentiation is maintained and there is no blurring of the basal ganglia. There is no hyperdense vessel. Posterior fossa structures are unremarkable. CSF SPACES: Appropriate for age. No hydrocephalus. Basal cisterns are patent. CALVARIUM, SKULL BASE, PARANASAL SINUSES AND MASTOID AIR CELLS: Sphenoid sinuses are almost completely opacified. There is partial opacification ethmoid air cells and left maxillary sinuses with sclerosis left maxillary sinus wall suggesting chronic paranasal sinus disease. Underpneumatized left, greater than right, bilateral mastoid air cells. No fluid density mastoid air cells or middle ears. Note of debris bilateral external auditory canals. No discrete lytic or blastic abnormalities. Left maxillary molar periapical lucency may represent periodontal disease. ORBITS: Both globes, extraocular muscles, optic nerves and retrobulbar fat appear unremarkable. ASPECTS Score for Acute Strokes: 10 CT/Brain/Head without Contrast IMPRESSION: No acute intracranial pathology. Paranasal sinus disease as above. Left maxillary molar periapical lucency suggesting periodontal disease. Electronically Signed: Sánchez Fink DO at 0:24 EST Tel , Service support ,
--- NOTE | 2021-05-07 22:25 | NURSING ---
the computer mouse wasn't working in the room w/ this RN. Gave PM meds and verified with another RN.
--- NOTE | 2021-05-07 22:27 | NURSING ---
upon assessment this RN was having a conversation w/ the patient when noticed to have some difficulties completing her thoughts. Pt verbally said, I wish I can talk to someone about this crystal thing. RN attempted to guide conversation but pt wasn't able to follow through. Pt a&ox3, appropriate. Denies having chest pain, MONACO/dizziness, SOB. On 4L, NC 02 93%. BP 188/88, HR 95. BS 362. Gave all PM meds, verified with another RN. This RN also attempted to call family about pt's baseline, unsuccessful. Notified MD, CT head/brain order at this time.
[2021-05-07 22:40] LABS: Bedside Glucose 362 mg/dL (70-110)
[2021-05-08] VITALS (9 sets, daily range): BP systolic 129–193; BP diastolic 70–82; PULSE 76–107; RESP 20–22; TEMP 36.4–36.9; O2SAT 94–98
[2021-05-08] MEDS: hydrALAZINE 20 MG/ML Vial 10 MG IV (00:22)
[2021-05-08 06:50] LABS: Bedside Glucose 224 mg/dL (70-110)
[2021-05-08] MEDS: Insulin Lispro 100 UNIT/ML INSULN.PEN SC ×2 (06:50→10:55)
[2021-05-08] MEDS: Enoxaparin 40 MG/0.4 ML Syringe SC (06:50)
[2021-05-08] MEDS: Labetalol (Prefilled) 20 MG/4 ML IV (06:55)
[2021-05-08] MEDS: Lisinopril 40 MG Tablet PO (08:53)
[2021-05-08] MEDS: dexAMETHasone 4 MG Tablet 6 MG PO (08:53)
[2021-05-08] MEDS: amLODIPine 5 MG Tablet PO (08:54)
[2021-05-08] MEDS: Ascorbic Acid 500 MG Tablet 1000 MG PO (08:54)
[2021-05-08] MEDS: Aspirin 81 MG TAB.CHEW PO (08:54)
[2021-05-08] MEDS: Labetalol 200 MG Tablet PO (08:54)
[2021-05-08] MEDS: tiZANidine HCl 2 MG Tablet 4 MG PO (08:54)
[2021-05-08] MEDS: Furosemide 20 MG Tablet PO (08:54)
[2021-05-08] MEDS: levoFLOXacin IV 250 MG/50 ML BAG 50 MG IV (09:03)
[2021-05-08 11:06] LABS: Bedside Glucose 315 mg/dL (70-110)
--- NOTE | 2021-05-08 11:57 | PCM.TXEXTCAR ---
Diet 05/04/21 18:38 Diet: Consistent Carb - Calorie Controlled Type of Dietary Supplement:: Glucerna Shake Is pt able to select menu?: No Diet Comments: 120ml joaquin glucerna shake TID w/ meals; likes fresh fruit; no eggs w/ break How many daily calories?: 1800 calorie Routine Orders/Code Status O2 Liters per Minute: 4 Keep PO Greater than or Equal to (%): 90 Routine Lab Work: CBC and BMP Code Status: Full Code Wound(s) rt shoulder: Wound Type: blister Therapies Weight Bearing: Full weight bearing Physical Therapy: Eval and Treat Occupational Therapy: Eval and Treat Problem/Diagnosis (1) NSTEMI, initial episode of care: Status: Acute (2) Mitral valve prolapse: Status: Chronic (3) COVID-19: Status: Acute (4) Acute respiratory failure with hypoxia: Status: Acute (5) Sepsis: Status: Acute (6) TELMA (acute kidney injury): Status: Acute (7) Hyperlipemia: Status: Chronic (8) Hypertension: Status: Chronic (9) Type 2 diabetes mellitus: Status: Chronic Allergies/Procedures Done in Hospital Allergies No Known Allergies Allergy (Verified 05/04/21 13:11) Procedures: 2-D Echocardiogram Type of Care/Length of Stay Estimated LOS: Convalescent Care Less Than 30 days Type of Care Needed: Skilled Rehab Potential: Good Prognosis: Good Additional Orders/Day of Discharge Day of Discharge: 05/08/21 Dietary and Speech Recommendations Dietitian Recommendations/Changes: Continue 1800 calorie controlled; consistent carbohydrate diet as tolerated. Will add 120ml chocolate glucerna shake TID w/ meals. Discharge Plan Admission Admit Date/Time: 05/04/21 15:32 Primary Reason for Your Visit: Sepsis. Pneumonia, NSTEMI Attending Provider: George Goodman Primary Care Provider: Ho Landeros Consulting Providers: Kush Tipton ; Joel Bailey ; Darnell Landeros ; Vanessa Pacheco NP Discharge Orders/Prescriptions Prescriptions: New amlodipine 5 mg Tablet 5 mg PO DAILY Qty: 30 RF: 0 aspirin 81 mg Tablet,Chewable 81 mg PO BREAKFAST Qty: 0 RF: 0 atorvastatin 40 mg Tablet 40 mg PO QHS Qty: 0 RF: 0 dexamethasone 4 mg Tablet 6 mg PO DAILY Qty: 0 RF: 0 Lantus Solostar U-100 Insulin 100 unit/mL (3 mL) Insulin Pen 40 unit subcut BID Qty: 0 RF: 0 loperamide 2 mg Capsule 2 mg PO Q4H PRN PRN (Reason: DIARRHEA) Qty: 0 RF: 0 furosemide 20 mg Tablet 20 mg PO DAILY Qty: 0 RF: 0 lisinopril 40 mg Tablet 40 mg PO DAILY Qty: 0 RF: 0 insulin lispro [Humalog KwikPen Insulin] 100 unit/mL Insulin Pen See Protocol unit subcut ACHS Qty: 0 RF: 0 Deep Sea Nasal 0.65 % Aerosol,Valentines 2 spray NASAL TID PRN PRN (Reason: NASAL DRYNESS) Qty: 44 RF: 0 levofloxacin 750 mg tablet 750 mg PO DAILY Qty: 7 RF: 0 Continued multivitamin tablet 1 tab PO QAM RF: 0 [id number] [id number] mg tablet 1 tablet PO DAILY RF: 0 labetalol 200 mg tablet 200 mg PO BID Qty: 180 RF: 3 ascorbic acid (vitamin C) 1,000 MG tablet 1,000 mg PO DAILY RF: 0 tizanidine 4 mg tablet 4 mg PO DAILY RF: 0 cholecalciferol (vitamin D3) 100 mcg (4,000 unit) Capsule 100 mcg PO DAILY RF: 0 glipizide 10 mg tablet extended release 24hr 10 mg PO DAILY RF: 0 lisinopril 40 mg tablet 40 mg PO DAILY RF: 0 dexamethasone 4 mg tablet 6 mg PO DAILY Qty: 0 RF: 0 oxycodone myristate 13.5 mg cap,sprinkl,ER12hr(DONT CRUSH) 13.5 mg PO BID 3 Days Qty: 6 RF: 0 Held insulin lispro 100 unit/mL insulin pen 24 unit SC TID RF: 0 Hold Instructions: Resume on 05/10/21. insulin glargine 100 unit/mL (3 mL) insulin pen 62 unit SC QHS RF: 0 Hold Instructions: Resume on 05/10/21. Discontinued naproxen 250 mg tablet 250 mg PO BID PRN (Reason: Pain) RF: 0 diazepam [Valium] 5 mg tablet 5 mg PO QHS PRN (Reason: anxiety) Qty: 1 RF: 0 torsemide 10 mg tablet 10 mg PO DAILY RF: 0 amlodipine 5 mg tablet 5 mg PO DAILY RF: 0 rosuvastatin [Crestor] 10 mg tablet 10 mg PO DAILY RF: 0 Referrals / Follow Up: Ho Landeros DO [Primary Care Provider] - Within 2 Weeks Kush Tipton MD [STAFF PHYSICIAN] - Within 1 Month Vanessa Pacheco NP, GRAIN INSPECTOR-C [Nurse Practitioner] - Within 1 Month Disposition Disposition (needs filled in before D/C Order can be placed): Retirement Facility
--- NOTE | 2021-05-08 12:12 | DS.PCM_ITS ---
Providers Date of Admission: 05/04/21 Primary Care Physician: Dr. Ho Landeros, DO Consultations 05/04/21 18:38 Consult: Cardiology Routine Consulting Provider: Kush Tipton Reason for Consult: elevated troponin EMERGENT Consult: No MD Notified: Yes Date Notified: 05/05/21 Time Notified: 07:36 Method of Notification: Verbal Consult: Game Producer / Pulmonary Medicine Routine Consulting Provider: Pulmonary Medicine ashley [place] Reason for Consult: Severe Sepsis/Covid19 EMERGENT Consult: No Notified: Yes Date Notified: 05/04/21 Time Notified: 15:39 Method of Notification: Verbal Method of Consult:: In-Person Reason For Visit: SEVERE SEPSIS, PNEUMONIA Diagnosis Discharge Diagnosis (1) NSTEMI, initial episode of care: Status: Acute Code(s): I21.4 - Non-ST elevation (NSTEMI) myocardial infarction (2) Mitral valve prolapse: Status: Chronic Code(s): I34.1 - Nonrheumatic mitral (valve) prolapse (3) COVID-19: Status: Acute Code(s): U07.1 - COVID-19 (4) Acute respiratory failure with hypoxia: Status: Acute Code(s): J96.01 - Acute respiratory failure with hypoxia (5) Sepsis: Status: Acute Code(s): A41.9 - Sepsis, unspecified organism Qualifiers: Sepsis type: sepsis due to unspecified organism Sepsis acute organ dysfunction status: with acute organ dysfunction Severe sepsis acute organ dysfunction type: acute renal failure Acute renal failure type: unspecified Severe sepsis shock status: without septic shock Qualified Code(s): A41.9 - Sepsis, unspecified organism; R65.20 - Severe sepsis without septic shock; N17.9 - Acute kidney failure, unspecified (6) TELMA (acute kidney injury): Status: Acute Code(s): N17.9 - Acute kidney failure, unspecified (7) Hyperlipemia: Status: Chronic Code(s): E78.5 - Hyperlipidemia, unspecified Qualifiers: Hyperlipidemia type: unspecified Qualified Code(s): E78.5 - Hyperlipidemia, unspecified (8) Hypertension: Status: Chronic Code(s): I10 - Essential (primary) hypertension Qualifiers: Hypertension type: essential hypertension Qualified Code(s): I10 - Essential (primary) hypertension (9) Type 2 diabetes mellitus: Status: Chronic Code(s): E11.9 - Type 2 diabetes mellitus without complications Qualifiers: 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: with fdc use Diabetes mellitus complication status: with unspecified complications Qualified Code(s): E11.8 - Type 2 diabetes mellitus with unspecified complications; Z79.4 - group home (current) use of insulin Medications at Discharge Home Medications multivitamin 1 tab PO QAM 08/18/17 ascorbic acid (vitamin C) 1,000 mg PO DAILY 02/15/20 seicdqd-xovhbgjmp-jakt 333 mg-133 mg-5 mg tablet 1 tablet PO DAILY 08/05/20 labetalol 200 mg tablet 200 mg PO BID #180 tab 02/10/21 insulin glargine 62 unit SC QHS 04/27/21 insulin lispro 24 unit SC TID 04/27/21 cholecalciferol (vitamin D3) 100 mcg PO DAILY 05/04/21 glipizide 10 mg PO DAILY 05/04/21 lisinopril 40 mg PO DAILY 05/04/21 tizanidine 4 mg PO DAILY 05/04/21 amlodipine 5 mg PO DAILY #30 tab 05/08/21 aspirin 81 mg PO BREAKFAST #0 tab 05/08/21 atorvastatin 40 mg PO QHS #0 tab 05/08/21 dexamethasone 6 mg PO DAILY #0 tab 05/08/21 dexamethasone 6 mg PO DAILY #0 tab 05/08/21 furosemide 20 mg PO DAILY #0 tab 05/08/21 insulin glargine [Lantus Solostar U-100 Insulin] 40 unit SUBCUT BID #0 ml 05/08/21 insulin lispro [Humalog KwikPen Insulin] See Protocol SUBCUT ACHS #0 ml 05/08/21 levofloxacin 750 mg PO DAILY #7 tab 05/08/21 lisinopril 40 mg PO DAILY #0 tab 05/08/21 loperamide 2 mg PO Q4H PRN PRN #0 cap 05/08/21 oxycodone myristate 13.5 mg PO BID 3 Days #6 ea 05/08/21 sodium chloride [Deep Sea Nasal] 2 spray NASAL TID PRN PRN #44 ml 05/08/21 Hospital Course Procedures 2-D Echocardiogram Summary of Care Provided Minutes Spent on Discharge: 35 Hospital Course: 1. Acute hypoxic respiratory failure improved Secondary to COVID-19 and staph pneumonia Wean oxygen as able CTA negative for PE 2. Non-ST elevation myocardial infarction Suspect type II given resp failure and sepsis Cardiology following Echo shows EF 55% Anticoagulated on ASA Will need further cardiac evaluation, to be performed as outpt 3. Sepsis Patient met criteria for sepsis based on SEP 1 criteria. qSOFA score upon admission was 1 on admission and therefore did not meet SEP 3 criteria. 2/2 UTI, bacterial pneumonia and COVID 19 4. COVID 19 pneumonia Unvaccinated on dexamethasone through the 5. MSSA change to LVQ 6. UTI 2/2 santos sensitive E. coli. LVQ 7. Bacteremia likely 2/2 E. coli LVQ. treat total of 10 days of abx. 8. Lactic acidosis May be multifactorial due to sepsis as well as acute hypoxic respiratory failure 9. DM2 uncontrolled exacerbated by steroids Physical Exam Const alert Resp normal respiratory effort, no retractions and no use of accessory muscles Cardio regular rate, regular rhythm, S1 normal heart sound and S2 normal heart sound GI normal to inspection, nondistended, normoactive bowel sounds, soft to palpation, non-tender and non-distended Extremity normal to inspection Weight / BMI Weight Weight: 115.2 kg Body Mass Index (BMI) 41.1 ABG / Lab / Microbiology Data Result Diagrams: 05/07/21 06:55 05/07/21 06:55 Laboratory: Laboratory Results - last 24 hr 05/07/21 16:37: Vancomycin Trough 14.2 05/07/21 17:19: POC Glucose 361 H 05/07/21 21:10: POC Glucose 362 H 05/08/21 06:33: POC Glucose 224 H 05/08/21 10:50: POC Glucose 315 H Microbiology: Microbiology 05/04/21 15:10 Blood Culture (Wb) - Anticubital Right Blood Culture - Final Gram negative wenyd 05/04/21 14:20 Blood Culture (Wb) - Anticubital Left Blood Culture - Final Escherichia coli 05/04/21 20:40 Sputum, Expectorated/Coughed Gram Stain - Final 05/04/21 20:40 Sputum, Expectorated/Coughed Respiratory Culture - Final Staphylococcus aureus 05/04/21 20:05 Urine, Clean Catch Urine Culture - Final Escherichia coli 05/04/21 20:05 Urine, Clean Catch Legionella Antigen - Final 12/20/21 20:05 Urine, Clean Catch Streptococcus pneumoniae Antigen (M - Final 05/04/21 14:25 Nasal Secretion SARS-CoV-2 Antigen (Rapid) - Final SARS-CoV-2 (COVID 19) Radiography Diagnostic Testing: Radiology Impression Brain CT 05/07/21 22:19 IMPRESSION: No acute intracranial pathology. Paranasal sinus disease as above. Left maxillary molar periapical lucency suggesting periodontal disease. Electronically Signed: Sánchez FinkDO at 0:24 EST Tel , Service support , Meaningful Use Info Meaningful Use Diagnoses (Choose all that apply): AMI AMI/Post PCI/Angioplasty Aspirin given w/in 24hrs of arrival?: Yes ASA at discharge?: Yes Statins at discharge?: Yes Gil/ARB at discharge?: Yes Beta Jocelyn at discharge?: Yes Done w/ Acute [place] measure.: Yes Discharge Plan Admission Admit Date/Time: 05/04/21 15:32 Primary Reason for Your Visit: Sepsis. Pneumonia, NSTEMI Attending Provider: George Goodman Primary Care Provider: Ho Landeros Consulting Providers: Kush Tipton ; Joel Bailey ; Darnell Landeros ; Vanessa Pacheco MANAGER OF EMPLOYEE RELATIONS Discharge Orders/Prescriptions Prescriptions: New amlodipine 5 mg Tablet 5 mg PO DAILY Qty: 30 RF: 0 aspirin 81 mg Tablet,Chewable 81 mg PO BREAKFAST Qty: 0 RF: 0 atorvastatin 40 mg Tablet 40 mg PO QHS Qty: 0 RF: 0 dexamethasone 4 mg Tablet 6 mg PO DAILY Qty: 0 RF: 0 Lantus Solostar U-100 Insulin 100 unit/mL (3 mL) Insulin Pen 40 unit subcut BID Qty: 0 RF: 0 loperamide 2 mg Capsule 2 mg PO Q4H PRN PRN (Reason: DIARRHEA) Qty: 0 RF: 0 furosemide 20 mg Tablet 20 mg PO DAILY Qty: 0 RF: 0 lisinopril 40 mg Tablet 40 mg PO DAILY Qty: 0 RF: 0 insulin lispro [Humalog KwikPen Insulin] 100 unit/mL Insulin Pen See Protocol unit subcut ACHS Qty: 0 RF: 0 Deep Sea Nasal 0.65 % Aerosol,[place] 2 spray NASAL TID PRN PRN (Reason: NASAL DRYNESS) Qty: 44 RF: 0 levofloxacin 750 mg tablet 750 mg PO DAILY Qty: 7 RF: 0 Continued multivitamin tablet 1 tab PO QAM RF: 0 ifmhdxj-jbdyypuzy-mowl 333-133-5 mg tablet 1 tablet PO DAILY RF: 0 labetalol 200 mg tablet 200 mg PO BID Qty: 180 RF: 3 ascorbic acid (vitamin C) 1,000 MG tablet 1,000 mg PO DAILY RF: 0 tizanidine 4 mg tablet 4 mg PO DAILY RF: 0 cholecalciferol (vitamin D3) 100 mcg (4,000 unit) Capsule 100 mcg PO DAILY RF: 0 glipizide 10 mg tablet extended release 24hr 10 mg PO DAILY RF: 0 lisinopril 40 mg tablet 40 mg PO DAILY RF: 0 dexamethasone 4 mg tablet 6 mg PO DAILY Qty: 0 RF: 0 oxycodone myristate 13.5 mg cap,sprinkl,ER12hr(DONT CRUSH) 13.5 mg PO BID 3 Days Qty: 6 RF: 0 Held insulin lispro 100 unit/mL insulin pen 24 unit SC TID RF: 0 Hold Instructions: Resume on 05/10/21. insulin glargine 100 unit/mL (3 mL) insulin pen 62 unit SC QHS RF: 0 Hold Instructions: Resume on 05/10/21. Discontinued naproxen 250 mg tablet 250 mg PO BID PRN (Reason: Pain) RF: 0 diazepam [Valium] 5 mg tablet 5 mg PO QHS PRN (Reason: anxiety) Qty: 1 RF: 0 torsemide 10 mg tablet 10 mg PO DAILY RF: 0 amlodipine 5 mg tablet 5 mg PO DAILY RF: 0 rosuvastatin [Crestor] 10 mg tablet 10 mg PO DAILY RF: 0 Referrals / Follow Up: Ho Landeros DO [Primary Care Provider] - Within 2 Weeks Kush Tipton MD [STAFF PHYSICIAN] - Within 1 Month Vanessa Pacheco NP, MANAGER OF EMPLOYEE RELATIONS-C [Nurse Practitioner] - Within 1 Month Disposition Disposition (needs filled in before D/C Order can be placed): [facility] Charges/Coding Visit Charges Inpatient E&M: 60052 Disch Hosp
--- NOTE | 2021-05-08 14:35 | NURSING ---
Report called to Alicia HALL LPN at 1432.
--- NOTE | 2021-05-11 09:03 | CASEMGMT ---
Addendum entered by Karla Goyal 05/11/21 09:56: Hospital Exemption was not completed. SW completed it but could not back date it to when pt left. SW called [facility], inquired as to what to do. She states to do the PAS/RR. PAS/RR completed, CAMILA notified [facility] that the hospital exemption was not completed on date of discharge so PAS/RR was completed. Bettina states understanding, with the PAS/RR she is able to change the date to reflect when the pt got there on her end. SHREYA Nunez Original Note: Social Work Bettina at [facility] requested therapy notes, CAMILA faxed over all PT/OT notes from pt's stay here. SHREYA Nunez
== END 2021-05-08 15:16 | disposition skilled nursing facility (03) | DRG 871 ==
LOC: ED 13:34 → ICU 15:52 → PCU 05-05 15:00
PROVIDERS: Internal Medicine Cardiovascular Disease; Internal Medicine Critical Care Medicine; Admitting Provider Internal Medicine; Emergency Provider Emergency Medicine; PCP Family Medicine
DX: A41.51 Sepsis due to Escherichia coli [E. coli] (principal); U07.1 COVID-19; J96.01 Acute respiratory failure with hypoxia; J12.82 Pneumonia due to coronavirus disease 2019; J15.211 Pneumonia due to Methicillin susceptible Staphylococcus aureus; I21.4 Non-ST elevation (NSTEMI) myocardial infarction; N17.9 Acute kidney failure, unspecified; N39.0 Urinary tract infection, site not specified; Z68.41 Body mass index [BMI] 40.0-44.9, adult; R65.20 Severe sepsis without septic shock; Z28.3 Underimmunization status; I34.1 Nonrheumatic mitral (valve) prolapse; E78.5 Hyperlipidemia, unspecified; N18.2 Chronic kidney disease, stage 2 (mild); I12.9 Hypertensive chronic kidney disease with stage 1 through stage 4 chronic kidney disease, or unspecified chronic kidney disease; E87.6 Hypokalemia; E66.01 Morbid (severe) obesity due to excess calories; G89.29 Other chronic pain; M54.50 Low back pain, unspecified; Z79.4 Long term (current) use of insulin; B96.20 Unspecified Escherichia coli [E. coli] as the cause of diseases classified elsewhere; B96.89 Other specified bacterial agents as the cause of diseases classified elsewhere; F32.A Depression, unspecified; F41.9 Anxiety disorder, unspecified; G62.9 Polyneuropathy, unspecified; Z80.0 Family history of malignant neoplasm of digestive organs; Z82.0 Family history of epilepsy and other diseases of the nervous system; Z85.118 Personal history of other malignant neoplasm of bronchus and lung; Z85.828 Personal history of other malignant neoplasm of skin; Z86.73 Personal history of transient ischemic attack (TIA), and cerebral infarction without residual deficits; Z87.891 Personal history of nicotine dependence; Z82.3 Family history of stroke; E11.42 Type 2 diabetes mellitus with diabetic polyneuropathy; E11.22 Type 2 diabetes mellitus with diabetic chronic kidney disease
CPT/HCPCS: 36415; 70450; 71045; 71275; 80053; 80061; 80202; 81001; 82550; 82962; 83605; 83735; 84100; 84145; 84484; 85025; 85379; 85610; 85730; 86140; 87040; 87070; 87077; 87086; 87088; 87186; 87205; 87426; 87449; 87641; 93005; 93306; 94640; 97116; 97163; 97166; 97530; 97803; 99251; 99285; J7030; J7040; J7050; J7120; Q9957; Q9967; A4216; G0463; J1940